=== PATIENT | female | born 1945 | race Caucasian/White ===

== ENCOUNTER → 2018-04-15 | Outpatient (CLI) | payer OTHER ==
[~2018-04-15] MED LIST: ACET325; CALCAVITDA PO; CHOL10002 PO; LOSARTAN POTAS100 MG PO; Multiple Vitam1 EAC1; OMEP20ER PO; Vitamin C1000 M1 PO
[2018-04-15 11:46] LABS: Source, Urine Clean Catch
[2018-04-15 14:23] LABS: Appearance, Urine Clear (Clear); Bilirubin, Urine Neg (Neg); Blood, Urine 3+ (Neg); Color, Urine Yellow (P-Yellow); Glucose Qualitative, Urine Neg (Neg); Ketones, Urine 1+ (Neg); Leukocyte Esterase, Urine 1+ (Neg); Nitrite, Urine Neg (Neg); Protein, Urine 2+ (Neg); Urobilinogen, Urine NORM (Normal)
[2018-04-15 14:50] LABS: Bacteria Few /hpf; Squamous Epithelial Cells Rare /hpf (Few); White Blood Cells, Urine 0-2 /hpf (0-5)
== END | disposition home or self-care (01) ==
LOC: LAB SHORT 11:45 → LAB 11:45
PROVIDERS: Internal Medicine
DX: N39.0 Urinary tract infection, site not specified (principal)
CPT/HCPCS: 81001; 87077; 87086; 87186

== ENCOUNTER → 2018-08-03 | Outpatient (CLI) | payer OTHER ==
[2018-08-03 11:25] LABS: Bacteria Not Seen /hpf; Red Blood Cells, Urine Not Seen /hpf (0-2); Squamous Epithelial Cells Mod /hpf (Few); White Blood Cells, Urine Not Seen /hpf (0-5)
== END | disposition home or self-care (01) ==
LOC: LAB EV 11:11 → LAB SHORT 11:11
PROVIDERS: Physician Assistant
DX: R31.9 Hematuria, unspecified (principal)
CPT/HCPCS: 81015; 87086

== ENCOUNTER 2021-08-07 10:11 | Emergency (ER) | payer OTHER ==
[~2021-08-07] VITALS: Ht 154.9 cm; Wt 45.8 kg
[2021-08-07 10:58] LABS: Hematocrit 35.3 % (33.0-51.0); Hemoglobin 11.2 g/dL (11.5-16.0); Mean Corpuscular HGB 29.9 pg (26.0-34.0); Mean Corpuscular HGB Conc 31.7 g/dL (31.5-36.5); Mean Corpuscular Volume 94 fL (80-100); Mean Platelet Volume 11.8 fL (9.1-12.4); Platelet Count 167 K/mm3 (150-400); RDW Coefficient Variation 12.6 % (11.7-14.2); Red Blood Cell Count 3.75 M/mm3 (3.80-5.20)
[2021-08-07 11:00] LABS: White Blood Cell Count 18.11 K/mm3 (4.00-11.30)
[2021-08-07 11:23] LABS: Alanine Aminotransfer (ALT/SGP 18 U/L (12-78); Albumin, Blood 3.7 g/dL (3.4-5.0); Albumin/Globulin Ratio 0.7 (0.8-1.8); Alk Phos 61 U/L (50-136); Anion Gap 7 mmol/L (6-16); Aspartate Aminotrans (AST/SGOT 14 U/L (12-37); BAND PERCENT MAN 2 % (0-8); BASOPHILS PERCENT MAN 0 % (0-2); Bilirubin, Total 0.3 mg/dL (0.1-1.0); Blood Urea Nitrogen 39 mg/dL (8-24); Bun/Creatinine Ratio 47.6 (12.0-20.0); CO2, Blood 21 mmol/L (21-32); Calcium, Blood 9.8 mg/dL (8.5-10.1); Chloride, Blood 112 mmol/L (98-108); Creatinine, Blood 0.82 mg/dL (0.40-1.00); EOSINOPHILS ABSOLUTE MAN 0.18 K/mm3 (0.00-0.68); EOSINOPHILS PERCENT MAN 1 % (0-6); Globulin, Blood 5.3 g/dL (2.2-4.0); Glomerular Filtration Rate >60 (60-); Glucose, Blood 97 mg/dL (70-99); LYMPHOCYTES ABSOLUTE MAN 1.44 K/mm3 (0.84-5.20); LYMPHOCYTES PERCENT MAN 8 % (21-46); METAMYELOCYTE ABSOLUTE MAN 0.18 K/mm3 (0.00-0.00); METAMYELOCYTE PERCENT MAN 1 % (0-0); MONOCYTES ABSOLUTE MAN 4.34 K/mm3 (0.16-1.47); MONOCYTES PERCENT MAN 24 % (4-13); MYELOCYTE ABSOLUTE MAN 0.36 K/mm3 (0.00-0.00); MYELOCYTE PERCENT MAN 2 % (0-0); NEUTROPHILS ABSOLUTE MAN 11.59 K/mm3 (1.96-9.15); Potassium, Blood 5.1 mmol/L (3.5-5.5); SEG NEUTROPHILS PERCENT MAN 62 % (41-73); Sodium, Blood 140 mmol/L (136-145); TOTAL CELLS COUNTED 100; Troponin I <0.015 ng/mL (0.000-0.040)
[2021-08-07] MEDS ORDERED: HYDR1TAB94 PO (15:51)
== END 2021-08-07 16:15 | disposition home or self-care (01) ==
LOC: ER 10:11
PROVIDERS: Physician Assistant
DX: S22.31XA Fracture of one rib, right side, initial encounter for closed fracture (principal); I10 Essential (primary) hypertension; Z87.891 Personal history of nicotine dependence; X58.XXXA Exposure to other specified factors, initial encounter
CPT/HCPCS: 36415; 71046; 71260; 80053; 83690; 83880; 84484; 85025; 93005; 93010; 99284-25; Q9967

== ENCOUNTER → 2021-08-30 | Outpatient (CLI) | payer OTHER ==
[~2021-08-30] MED LIST changes: +HYDR1TAB94 PO; +MAGCIT300 PO
== END | disposition home or self-care (01) ==
LOC: LAB 13:50 → LAB SHORT 13:50
DX: N39.0 Urinary tract infection, site not specified (principal)
CPT/HCPCS: 87077; 87086; 87186

== ENCOUNTER 2021-09-11 13:57 | Observation (INO) | payer OTHER ==
[~2021-09-11] VITALS: Ht 157.5 cm; Wt 45.8 kg
[~2021-09-11 13:57] MED LIST changes: -ACET325; +ACET325 PO; -CALCAVITDA PO; +CALCIUM 500-VI1 EAC6 PO; -CHOL10002 PO; -Multiple Vitam1 EAC1; +Multiple Vitam1 EAC1 PO; +VITAMIN D325 MC3 PO; +Vitamin C100 M1 PO; -Vitamin C1000 M1 PO
[2021-09-11 14:41] LABS: BASOPHILS ABSOLUTE AUTO 0.09 K/mm3 (0.00-0.23); BASOPHILS PERCENT AUTO 0 % (0-2); EOSINOPHILS ABSOLUTE AUTO 0.01 K/mm3 (0.00-0.68); EOSINOPHILS PERCENT AUTO 0 % (0-6); Hematocrit 36.1 % (33.0-51.0); IMMATURE GRAN ABSOLUTE AUTO 0.82 K/mm3 (0.00-0.10); IMMATURE GRAN PERCENT AUTO 3 % (0-1); LYMPHOCYTES ABSOLUTE AUTO 2.14 K/mm3 (0.84-5.20); LYMPHOCYTES PERCENT AUTO 7 % (21-46); MONOCYTES PERCENT AUTO 36 % (4-13); Mean Corpuscular HGB 28.8 pg (26.0-34.0); Mean Corpuscular HGB Conc 30.5 g/dL (31.5-36.5); Mean Corpuscular Volume 95 fL (80-100); NEUTROPHILS PERCENT AUTO 55 % (41-73); Platelet Count 192 K/mm3 (150-400); RDW Coefficient Variation 12.3 % (11.7-14.2); RDW Standard Deviation 42.4 fL (35.1-46.3); Red Blood Cell Count 3.82 M/mm3 (3.80-5.20); White Blood Cell Count 31.56 K/mm3 (4.00-11.30)
[2021-09-11 15:00] LABS: Alanine Aminotransfer (ALT/SGP 18 U/L (12-78); Albumin, Blood 3.3 g/dL (3.4-5.0); Albumin/Globulin Ratio 0.7 (0.8-1.8); Alk Phos 79 U/L (50-136); Anion Gap 2 mmol/L (6-16); Aspartate Aminotrans (AST/SGOT 14 U/L (12-37); Bilirubin, Total 0.4 mg/dL (0.1-1.0); Blood Urea Nitrogen 24 mg/dL (8-24); Bun/Creatinine Ratio 30.6 (12.0-20.0); CO2, Blood 26 mmol/L (21-32); Calcium, Blood 9.3 mg/dL (8.5-10.1); Chloride, Blood 111 mmol/L (98-108); Creatinine, Blood 0.78 mg/dL (0.40-1.00); Globulin, Blood 4.8 g/dL (2.2-4.0); Glomerular Filtration Rate >60 (60-); Glucose, Blood 171 mg/dL (70-99); Potassium, Blood 4.1 mmol/L (3.5-5.5); Sodium, Blood 139 mmol/L (136-145); Total Protein, Blood 8.1 g/dL (6.4-8.2)
[2021-09-11] MEDS ORDERED: IRBESARTAN150 M3 PO (16:13)
[2021-09-11] MEDS ORDERED: RALOXIFENE HCL PO (16:14)
[2021-09-11 16:50] LABS: Source, Urine Clean Catch
[2021-09-11 17:45] LABS: Appearance, Urine Hazy (Clear); Bilirubin, Urine Neg (Neg); Blood, Urine 4+ (Neg); Color, Urine Yellow (P-Yellow); Glucose Qualitative, Urine Neg (Neg); Ketones, Urine Neg (Neg); Leukocyte Esterase, Urine 1+ (Neg); Nitrite, Urine Neg (Neg); Protein, Urine 2+ (Neg); Specific Gravity, Urine 1.025 (1.003-1.022); Urobilinogen, Urine NORM (Normal)
[2021-09-11 18:16] LABS: Bacteria Mod /hpf; Hyaline Casts 0-2 /lpf (0-2); Mucus Light (0-Heavy); Red Blood Cells, Urine 0-2 /hpf (0-2); Squamous Epithelial Cells Few /hpf (Few)
[2021-09-11 23:27] LABS: Influenza A, PCR NEGATIVE (NEGATIVE); Influenza B, PCR NEGATIVE (NEGATIVE); Resp Syncytial Virus, PCR NEGATIVE (NEGATIVE); SARS-Cov-2 (COVID-19) PCR, MMC NEGATIVE (NEGATIVE)
[2021-09-12 04:49] LABS: BASOPHILS ABSOLUTE AUTO 0.09 K/mm3 (0.00-0.23); BASOPHILS PERCENT AUTO 0 % (0-2); EOSINOPHILS ABSOLUTE AUTO 0.02 K/mm3 (0.00-0.68); EOSINOPHILS PERCENT AUTO 0 % (0-6); Hematocrit 34.9 % (33.0-51.0); Hemoglobin 10.5 g/dL (11.5-16.0); IMMATURE GRAN ABSOLUTE AUTO 0.54 K/mm3 (0.00-0.10); IMMATURE GRAN PERCENT AUTO 2 % (0-1); LYMPHOCYTES ABSOLUTE AUTO 1.98 K/mm3 (0.84-5.20); LYMPHOCYTES PERCENT AUTO 7 % (21-46); MONOCYTES ABSOLUTE AUTO 14.71 K/mm3 (0.16-1.47); MONOCYTES PERCENT AUTO 49 % (4-13); Mean Corpuscular HGB 28.2 pg (26.0-34.0); Mean Corpuscular HGB Conc 30.1 g/dL (31.5-36.5); Mean Corpuscular Volume 94 fL (80-100); Mean Platelet Volume 12.1 fL (9.1-12.4); NEUTROPHILS ABSOLUTE AUTO 12.93 K/mm3 (1.96-9.15); NEUTROPHILS PERCENT AUTO 43 % (41-73); Platelet Count 163 K/mm3 (150-400); RDW Coefficient Variation 12.1 % (11.7-14.2); RDW Standard Deviation 41.6 fL (35.1-46.3); Red Blood Cell Count 3.73 M/mm3 (3.80-5.20); White Blood Cell Count 30.27 K/mm3 (4.00-11.30)
[2021-09-12 05:02] LABS: Alanine Aminotransfer (ALT/SGP 17 U/L (12-78); Albumin, Blood 2.9 g/dL (3.4-5.0); Albumin/Globulin Ratio 0.6 (0.8-1.8); Alk Phos 72 U/L (50-136); Anion Gap 6 mmol/L (6-16); Aspartate Aminotrans (AST/SGOT 12 U/L (12-37); Bilirubin, Total 0.4 mg/dL (0.1-1.0); Blood Urea Nitrogen 19 mg/dL (8-24); Bun/Creatinine Ratio 23.8 (12.0-20.0); CO2, Blood 26 mmol/L (21-32); Calcium, Blood 9.2 mg/dL (8.5-10.1); Chloride, Blood 108 mmol/L (98-108); Globulin, Blood 4.5 g/dL (2.2-4.0); Glomerular Filtration Rate >60 (60-); Glucose, Blood 84 mg/dL (70-99); Potassium, Blood 3.8 mmol/L (3.5-5.5); Sodium, Blood 140 mmol/L (136-145); Total Protein, Blood 7.4 g/dL (6.4-8.2)
--- NOTE | 2021-09-12 06:04 | NUR ---
SHIFT SUMMARY PT A/OX4,NUIQSUT BOTH EARS BUT DID BRING HEARING AIDES WITH HER.HAD GOOD EFFECT FROM NORCO IN ER AND ONLY REPORTS PAIN WITH MOVEMENT.BP APPEARS TO BE ELEVATED WITH INCREASED PAIN AND AT REST BP IMPROVED.
--- NOTE | 2021-09-12 06:08 | NUR ---
LATE ENTRY 2330 PT RECIEVED FROM ER VIA STRETCHER, SLIDE TRANFER TO BED WITH ASSIST OF THREE. SEVERE PAIN WITH MOVEMENT AND DENIES PAIN AT REST.Adkins CATHETER PATENT AND DRAINING WITH MILI URINE AND IT WAS INSERTED IN ER. PT AND DAUGHTER ORIENTED TO ROOM AND CALL LIGHT AND BOTH VERBALIZED UNDERSTANDING. BED ALARM ON FOR SAFETY.BP ELEVATED WITH PAIN FROM TRANSFER. FAIR EFFECT OBSERVED FROM BP MEDS GIVEN IN ER. SEE SEP.
--- NOTE | 2021-09-12 17:46 | NUR ---
SHIFT SUMMARY PT A&O X4 AND IN PLEASENT MOOD T/O SHIFT. PT MEDICATED PER EMAR FOR PAIN, ALSO REPOSITIONED FOR BREAKTHROUGH PAIN. FAMILY @ BEDSIDE T/O SHIFT. PT HESITANT W/ MOVEMENT DUE TO PAIN IN L LOWER BACK. HPTN MEDICATED PER EMAR. CALL LIGHT W/IN REACH. WORKED W/ PT THIS SHIFT.
--- NOTE | 2021-09-13 05:15 | NUR ---
SHIFT SUMMARY PT A/O AND STATES THAT BACK PAIN IS GETTING BETTER AND ONLY ONE DOSE OF NORCO WAS GIVEN THIS SHIFT AND PT STATES THAT BACK PAIN IS A 3/10 THIS AM AND DENIES ANY NEED FOR PAIN MEDS. REHMAN CATHETER PATENT AND DRAINING CLEAR YELLOW URINE AND FOLETY CARE WAS DONE.INCONTINENT OF ONE LIQUID BM AND TLOERATED BRIEF CHANGE.NO ACUTE DISTRESS NOTED.
--- NOTE | 2021-09-13 19:27 | NUR ---
SHIFT SUMMARY PT A&O X4 AND IN PLEASENT MOOD T/O SHIFT. WORKED W/ PT TODAY, REPORTED PT WALKED TO RESTROOM AND BACK TO BED, RECOMMENENDED FOR BSC FOR ALL RESTROOM NEEDS. PT MEDICATED PER EMAR FOR PAIN. DAUGHTERS @ BEDSIDE DURING VISITING HOURS. REHMAN DRAINING TO GRAVITY. VSS. CALL LIGHT W/IN REACH.
--- NOTE | 2021-09-14 07:28 | NUR ---
SHIFT SUMMARY: PATIENT IS REPORTING ABILITY TO CHANGE POSITION HAS IMPROVED, MUCH LESS PAINFULL THIS MORNING. PRN SOMA AND SCHEDULED TORADOL PROVIDED GOOD PAIN CONTROL. PATIENT DECLINNED SENNA AT HS DUE TO MULIPLE BM'S ON DAY SHIFT. PATIENT WAS INC. OF LOOSE BMX3 DURING THE NIGHT. IT WAS PASSED ON IN REPORT TO HOLD BOWEL CARE MEDICATIONS.
[2021-09-14] MEDS ORDERED: NABU500 PO (13:48)
[2021-09-14] MEDS ORDERED: PAIN RELIEF1 EACH TOP (13:48)
--- NOTE | 2021-09-14 16:05 | NUR ---
FAMILY DISCHARGE CONCERNS- DAUGHTER REQUESTED TO TALK TO COMPLIANCE AND CONTROL ANALYST REGARDING DISCHARGE CONCERNS. PER DAUGHTER PT LIVES ALONE AND HAS HAD HER SON HELPING BUT PER DAUGHTER HE IS AN ALCOHOLIC AND SHE IS CONCERNED WITH HIM CARING FOR HER, HER OTHER DAUGHTER IS SICK AND UNABLE TO ASSIST AND THIS DAUGHTER UNABLE TO STAY WITH MOTHER. SHE IS REQUESTING PT BE PLACED SOMEWHERE FOR A COUPLE DAYS AND THEY ARE WILLING TO PAY OUT OF POCKET TO DO SO. SHE REPORTS HER MOTHER IS WEAK AND HAVING MULTIPLE LOOSE STOOLS. SHE REPORTS SHE SPOKE WITH SOMEONE AT [employer] WHO REPORTS WE WOULD NEED TO SEND OVER DOCUMENTATION. I CALLED AND SPOKE WITH NISHA AT [employer] AND RECORDS FAXED FOR POSSIBLE PRIVATE PAY WITHOUT ANY RESPONSE. AFTER READING THROUGH PT CHART PT HAS NOT BEEN GETTING OUT OF BED AND HAS BEEN USING A BEDPAN. SPOKE WITH NURSE WHO REPORTS THIS IS DUE TO LOOSE STOOLS AND INCONTINENCE. DR MARTIN NOTIFIED OF DAUGHTER CONCERNS, AGREED TO HOLD DICHARGE TODAY AND CARE MANAGEMENT CAN ASSIST TOMORROW. NURSE REPORTS PT WILL BE ENCOURAGED TO GET OUT OF BED AND ONE TIME DOSE OF IMODIUM WILL BE GIVEN. DAUGHTER UPDATED ON PLAN.
--- NOTE | 2021-09-14 16:58 | NUR ---
SHIFT SUMMARY PT A&O X4 AND IN PLEASENT MOOD T/O SHIFT. PT DAUGHTER @ BEDSIDE DURING VISITING HOURS. REHMAN D/SHANTELLE THIS SHIFT, 1 SMALL VOID NOTED. PT SUFFERING FROM LIQUID STOOL- IMODIUM ADMIN, NOTIFIED-PLANNED D/C POSTPONED. PT VERBALIZED ANX ABOUT BEING HOME ALONE WITH TOILETING NEEDS. PLAN TO D/C [place]. VSS. CALL LIGHT W/IN REACH. PAIN MEDICATED W/ TRAMADOL PER EMAR. PT EDUCATED ON NEED TO BE UP TO CHAIR FOR MEALS AND UP TO BSC FOR RESTROOM NEEDS.
--- NOTE | 2021-09-15 04:09 | NUR ---
SHIFT SUMMARY: PATIENT WAS INC. OF LOOSE STOOL X1 THIS SHIFT, BOWEL CARE MEDS ARE HELD. BACK PAIN IS MUCH IMPROVED, NORCO WAS GIVEN X1 WITH GOOD EFFECT. PATIENT IS INC. WHEN CHECKED AND DENIES NEED TO USE THE BATHROOM WHEN GUI CARE IS GIVEN.
--- NOTE | 2021-09-15 18:04 | NUR ---
DISCHARGE PATIENT TRANSPORTED VIA WHEELCHAIR TO PRIVATE VEHICLE. DISCHARGE INSTRUCTIONS EXPLAINED TO PATIENT. PATIENT STATED UNDERSTANDING. PACKET SENT WITH PATIENT. IV REMOVED WITHOUT DIFFICULTY. BELONGINGS SENT WITH PATIENT. MEDICATIONS FAXED TO PREFERRED PHARMACY. PATIENT TO SCHEDULE FOLLOW UP APPOINTMENT.
[2021-09-16 19:07] LABS: A/G RATIO 0.9 (0.7-1.7); ALPHA-1-GLOBULIN 0.3 g/dL (0.0-0.4); ALPHA-2-GLOBULIN 0.6 g/dL (0.4-1.0); BETA GLOBULIN 0.6 g/dL (0.7-1.3); GLOBULIN, TOTAL 3.4 g/dL (2.2-3.9); IMMUNOGLOBULIN A, QN, SERUM 206 mg/dL (64-422); IMMUNOGLOBULIN G, QN, SERUM 2095 mg/dL (586-1602); IMMUNOGLOBULIN M, QN, SERUM 88 mg/dL (26-217); M-SPIKE 1.4 g/dL (Not Observed); PROTEIN, TOTAL, SERUM 6.4 g/dL (6.0-8.5)
== END 2021-09-15 17:52 | disposition home health service (06) ==
LOC: ER 13:57 → MEDS 13:58 → ENPENDDIS 09-14 17:03 → MEDS 09-15 17:52
PROVIDERS: Family Medicine; Physician Assistant; ADMIT Internal Medicine
DX: M54.50 Low back pain, unspecified (principal); G89.29 Other chronic pain; R54 Age-related physical debility; D72.829 Elevated white blood cell count, unspecified; M81.0 Age-related osteoporosis without current pathological fracture; I10 Essential (primary) hypertension; K44.9 Diaphragmatic hernia without obstruction or gangrene; M43.17 Spondylolisthesis, lumbosacral region; M47.818 Spondylosis without myelopathy or radiculopathy, sacral and sacrococcygeal region; M51.37 Other intervertebral disc degeneration, lumbosacral region; E46 Unspecified protein-calorie malnutrition; M41.9 Scoliosis, unspecified; Z87.891 Personal history of nicotine dependence; Z20.822 Contact with and (suspected) exposure to COVID-19
CPT/HCPCS: 0241U; 36415; 51702; 71046; 72100; 80053; 81001; 83605; 85025; 87086; 93971; 97110; 97112; 97162; 97165; 97530; 99285-25; A9270; J1650; J1885

== ENCOUNTER → 2021-09-21 | Outpatient (CLI) | payer OTHER ==
[~2021-09-21] MED LIST changes: +IRBESARTAN150 M3 PO; +NABU500 PO; +PAIN RELIEF1 EACH TOP; +RALOXIFENE HCL PO
[2021-09-24 10:46] LABS: Stool Occult Blood Guaiac 1 Neg (Neg)
== END | disposition home or self-care (01) ==
LOC: LAB SHORT 11:35
PROVIDERS: Internal Medicine
DX: D64.9 Anemia, unspecified (principal)
CPT/HCPCS: 82270

== ENCOUNTER 2021-11-07 12:46 | Emergency (ER) | payer OTHER ==
[~2021-11-07] VITALS: Ht 154.9 cm; Wt 39.5 kg
== END 2021-11-07 14:31 | disposition home or self-care (01) ==
LOC: ER 12:46
DX: M71.21 Synovial cyst of popliteal space [Baker], right knee (principal); I10 Essential (primary) hypertension; Z79.899 Other long term (current) drug therapy; Z87.891 Personal history of nicotine dependence
CPT/HCPCS: 93971; 99283-25

== ENCOUNTER 2022-04-17 10:02 | Emergency (ER) | payer OTHER ==
[~2022-04-17] VITALS: Ht 154.9 cm; Wt 45.8 kg
[2022-04-17 11:06] LABS: BASOPHILS ABSOLUTE AUTO 0.07 K/mm3 (0.00-0.23); BASOPHILS PERCENT AUTO 0 % (0-2); EOSINOPHILS ABSOLUTE AUTO 0.19 K/mm3 (0.00-0.68); EOSINOPHILS PERCENT AUTO 1 % (0-6); Hematocrit 32.6 % (33.0-51.0); IMMATURE GRAN ABSOLUTE AUTO 0.39 K/mm3 (0.00-0.10); IMMATURE GRAN PERCENT AUTO 2 % (0-1); LYMPHOCYTES ABSOLUTE AUTO 1.92 K/mm3 (0.84-5.20); LYMPHOCYTES PERCENT AUTO 9 % (21-46); MONOCYTES ABSOLUTE AUTO 8.64 K/mm3 (0.16-1.47); MONOCYTES PERCENT AUTO 39 % (4-13); Mean Corpuscular HGB 27.6 pg (26.0-34.0); Mean Corpuscular HGB Conc 30.7 g/dL (31.5-36.5); Mean Corpuscular Volume 90 fL (80-100); Mean Platelet Volume 12.4 fL (9.1-12.4); NEUTROPHILS ABSOLUTE AUTO 10.75 K/mm3 (1.96-9.15); NEUTROPHILS PERCENT AUTO 49 % (41-73); Platelet Count 186 K/mm3 (150-400); RDW Coefficient Variation 13.2 % (11.7-14.2); RDW Standard Deviation 44.1 fL (35.1-46.3); Red Blood Cell Count 3.62 M/mm3 (3.80-5.20); White Blood Cell Count 21.96 K/mm3 (4.00-11.30)
[2022-04-17 11:15] LABS: Albumin, Blood 3.4 g/dL (3.4-5.0); Albumin/Globulin Ratio 0.7 (0.8-1.8); Bilirubin, Total 0.3 mg/dL (0.1-1.0); Bun/Creatinine Ratio 29.4 (12.0-20.0); Creatinine, Blood 0.85 mg/dL (0.40-1.00); Globulin, Blood 4.6 g/dL (2.2-4.0); Potassium, Blood 3.4 mmol/L (3.5-5.5)
[2022-04-17 11:33] LABS: BASOPHILS PERCENT MAN 0 % (0-2); EOSINOPHILS ABSOLUTE MAN 0.21 K/mm3 (0.00-0.68); EOSINOPHILS PERCENT MAN 1 % (0-6); LYMPHOCYTES ABSOLUTE MAN 2.19 K/mm3 (0.84-5.20); LYMPHOCYTES PERCENT MAN 10 % (21-46); MONOCYTES ABSOLUTE MAN 7.24 K/mm3 (0.16-1.47); MONOCYTES PERCENT MAN 33 % (4-13); NEUTROPHILS ABSOLUTE MAN 12.29 K/mm3 (1.96-9.15); SEG NEUTROPHILS PERCENT MAN 56 % (41-73); TOTAL CELLS COUNTED 100
[2022-04-17] MEDS ORDERED: POLY500 PO (11:58)
[2022-04-17] MEDS ORDERED: SENN187 PO (11:58)
[2022-04-17] MEDS ORDERED: OMEP20ER PO (11:58)
[2022-04-17] MEDS ORDERED: PROLIA60 MG/1 ML SC (11:59)
== END 2022-04-17 14:02 | disposition home or self-care (01) ==
LOC: ER 10:02
PROVIDERS: Physician Assistant
DX: R20.2 Paresthesia of skin (principal); Z79.899 Other long term (current) drug therapy; Z87.891 Personal history of nicotine dependence
CPT/HCPCS: 36415; 70450; 80053; 83735; 85025

== ENCOUNTER 2022-04-19 15:57 | Inpatient (IN) | payer OTHER ==
[~2022-04-19] VITALS: Ht 152.4 cm; Wt 44.1 kg
[~2022-04-19 15:57] MED LIST changes: -ACET500 PO; -ENSURE PLUS HI237 ML PO; -ENTRESTO 24 MG1 EACH PO; -FUROSEMIDE20 MG PO; -IRBE150 PO; -LACT10SY PO; -METO25ER PO; -MIRALAX17 GM PO; -POTCHL20ER PO; -PROLIA60 MG/1 ML
[2022-04-19] MEDS ORDERED: FUROSEMIDE20 MG PO (16:55)
[2022-04-19] MEDS ORDERED: POTCHL20ER PO (16:56)
[2022-04-19] MEDS ORDERED: ACET500 PO (16:57)
[2022-04-19] MEDS ORDERED: SENN187 PO (16:58)
[2022-04-19] MEDS ORDERED: POLY500 PO (16:59)
[2022-04-19] MEDS ORDERED: IRBE150 PO (17:00)
[2022-04-19] MEDS ORDERED: VITAMIN D325 MC3 PO (17:01)
[2022-04-19] MEDS ORDERED: OMEP20ER PO (17:03)
[2022-04-19] MEDS ORDERED: MIRALAX17 GM PO (17:03)
[2022-04-19] MEDS ORDERED: ENSURE PLUS HI237 ML PO (17:03)
[2022-04-19] MEDS ORDERED: LACT10SY PO ×2 (17:05→17:06)
[2022-04-19] MEDS ORDERED: PROLIA60 MG/1 ML (17:05)
[2022-04-20 05:38] LABS: Bun/Creatinine Ratio 28.4 (12.0-20.0); Calcium, Blood 8.7 mg/dL (8.5-10.1); Creatinine, Blood 0.92 mg/dL (0.40-1.00); Potassium, Blood 4.3 mmol/L (3.5-5.5)
--- NOTE | 2022-04-20 06:13 | NUR ---
NOC SHIFT SUMMARY PT ADMITTED FROM URGENT CARE DUE TO SWELLING NOTED IN BLE (2+ PITTING). LASIX STARTED IN ED WITH EXCELLENT RESPONSE. PT RECEIVED A TOTAL 80 mEq OF PO K, FOR A K OF 3.4; HS DOSE HELD AFTER VERIFYING WITH PHARMACY (MD LIKELY UNAWARE OF THE 40 mEq THAT PT RECFEIVED WHILE AT URGENT CARE; PT THEN RECEIVED AN ADDITIONAL 40 mEq WHILE IN ED). PT VERY PETITE AND FRAIL. USES WHEELCHAIR AT BASELINE D/T SEVERE WEAKNESS; CURRENLT ON BEDREST. PUREWICK INITIATED TO PREVENT SKIN BREAKDOWN. TELE MONITORING SHOWING ST OVERNIGHT. PIV LOCATED ON RIGHT WRIST; HOWEVER, PT HAD RIGHT MASTECTOMY, WHICH SHOULD RENDER RIGHT ARM LIMB RESTRICTION. PT WAS HESITANT TO ALLOW NEW PIV PLACEMENT ON LEFT SIDE D/T CHEMOTHERAPY "DESTROYING" HER VEINS.
--- NOTE | 2022-04-20 17:44 | NUR ---
SHIFT SUMMARY: PATIENT A&OX4. SLIGHTLY JACK[place]. PLEASANT AND COOPERATIVE WITH CARE. ON TELE, NSR AT 89 BPM PER MALT HOUSE LOADER TASHA. DENIES CP/CHEST DISCOMFORT. LUNGS CLEAR T/O. O2 2L VIA NC WITH SPO2 RANGES FROM 97-100% T/O SHIFT. REPORTS SOB WITH ACTIVITIES THIS AM. IT IMPROVED WITH REPOSITIONING AND SITTING UP ON THE EOB T/O THE DAY. PATIENT HAS BEEN INCONTINENT AND WEAR ATTENDS. RECIEVED PRN TYLENOL PER EMAR FOR BACK PAIN WITH GOOD RELIEF PER PATIENT. VITAL SIGNS REVIEWED. NO ACUTE CHANGES THIS SHIFT. BED IN LOWEST POSITION, LOCKED AND CALL LIGHT WITHIN REACH.
--- NOTE | 2022-04-21 04:38 | NUR ---
SUMMARY: PT A/OX4, CALLS APPROPRIATELY TO SPECIFY NEEDS AND IS PLEASANT AND COOPERATIVE W/CARE. SHE'S SBA TO BSC TO VOID AND HAD URGENCY R/T DIURESIS W/LASIX AND ATTENDS CHANGED PRN. BLE EDEMA PERSISTS BUT IS IMPROVING. BRUISES ARE SCATTERED TO EXT'S FROM RECENT FALLS AND LARGE BRUISE OBSERVED TO L.THIGH WHERE SHE PREDOMINANTLY REPORTS PAIN BEING PRESENT. OXYCONTIN AND PRN TYLENOL W/CODEINE RECIEVED FOR TOLERABLE RELIEF. NO ACUTE CHANGES, VSS/AFEBRILE ON 2L O2 VIA NC W/SPO2 WNL. WCTM AND REPORT TO DAY RN.
--- NOTE | 2022-04-21 05:16 | NUR ---
SUMMARY: PT A/OX4, CALLS APPROPRIATELY TO SPECIFY NEEDS AND IS PLEASANT AND COOPERATIVE W/CARE. SHE'S TYPICALLY AMBULATORY W/FWW BUT HAS BECOME DECONDITIONED R/T SOB W/EXERTION AND W/C USE RECENTLY. TURN SCHEDULE WAS FOR SBD PREVENTION AND PT NOTED TO HAVE X2 SM.SCABS TO BUTTOCKS. ATTENDS WERE CHANGED PRN FOR URINARY INCONTINENCE AND BARRIER CREAM APPLIED. SHE REMAINS ON 2L O2 VIA NC TO MAINTAIN SPO2 WNL BUT SOB W/ACTIVITY IS IMPROVING. BLE EDEMA IS GOING DOWN W/DIURESIS. SHE WAS ASSISTED TO CHAIR THIS MORNING D/T TROUBLE GETTING COMFORTABLE ON AIR BED. TYLENOL WAS RECIEVED AND KPAD IS IN PLACE AND PT REPORTS FEELING MUCH BETTER. PLAN TO OBTAIN RECLINER TO SLEEP IN FOR FUTURE. NO ACUTE CHANGES, VSS/AFEBRILE. WCTM AND REPORT TO DAY RN.
[2022-04-21 15:44] LABS: SARS-Cov-2 (COVID-19) PCR, MMC NEGATIVE (NEGATIVE)
--- NOTE | 2022-04-21 18:12 | NUR ---
SHIFT SUMMARY: PATIENT A&OX4. PLEASANT AND COOPERATIVE WITH CARE. DENIES CP/CHEST DISCOMFORT. RA WITH SPO2 RANGES 92-94% T/O SHIFT. LUNGS CLEAR. PATIENT REPORTS SOB IS IMPROVING NOT EASILY WEANDED WITH ACTIVITIES. PATIENT HAS BEEN SITTING UP IN THE RECLINER CHAIR T/O THE DAY AND TOLERATED WELL. PATIENT USES BSC AND WEAR ATTENDS FOR INCONTINENCE VOID. RECIEVED ALL SCHEDULED MEDS THIS SHIFT. PATIENT IS GOING TO BE NPO AFTER MN FOR ANGIOGRAM 04/22/22. VITAL SIGNS REVIEWED. FAMILY AT BEDSIDE T/O THE DAY VISITING. NO ACUTE CHANGES THIS SHIFT. CALL LIGHT IN REACH.
--- NOTE | 2022-04-22 04:50 | NUR ---
SUMMARY: PT A/OX4, CALLS APPROPRIATELY TO SPECIFY NEEDS AND IS PLEASANT AND COOPERATIVE W/CARE. SHE'S UP W/1PA TO BSC/CHAIR AND SPENT BEGINNING OF SHIFT IN RECLINER BEFORE TRANSFERING TO BED TO SLEEP. PT REQUESTED SLEEP AID D/T UNDERLYING ANXIETY R/T ANGIO TODAY. RX'D TRAZADONE X1 AND MED WAS RECIEVED FOR SHORT DURATION OF EFFECT. SHE REPORTED FALLING ASLEEP FOR ONLY A COUPLE HOURS BEFORE MED SEEMED TO WEAR OFF. PT SLEPT OFF/ON T/O NOCTE SINCE AND DENIED DISCOMFORT, CP, S/S CARDIAC DISTRESS OR NEED FOR ADDITIONAL SLEEP/ ANXIETY MEDS. TYLENOL WAS PROVIDED X1 FOR TOLERABLE RELIEF OF BACK AND NECK PAIN R/T MULTI SPINAL FX'S. TURN SCHEDULE MAINTAINED AND ATTENDS CHANGED FOR OCC INCONTINENCE WHILE ASLEEP. MEPILEX TO COCCYX IS C/D/I. SHE'S BEEN NPO SINCE MN FOR ANGIO TODAY AND WAS NSR W/BBB AT 80'S-100'S BPM. VSS/AFEBRILE AND NO ACUTE CHANGES. WCTM AND REPORT TO DAY RN.
[2022-04-22 05:09] LABS: Anion Gap 3 mmol/L (6-16); Blood Urea Nitrogen 30 mg/dL (8-24); Bun/Creatinine Ratio 35.4 (12.0-20.0); CO2, Blood 32 mmol/L (21-32); Calcium, Blood 8.4 mg/dL (8.5-10.1); Chloride, Blood 105 mmol/L (98-108); Cholesterol 74 mg/dL (50-200); Creatinine, Blood 0.85 mg/dL (0.40-1.00); Glomerular Filtration Rate 70 (60-); Glucose, Blood 92 mg/dL (70-99); HDL Cholesterol 37 mg/dL (>39); LDL/HDL RATIO 0.6; Low Density Lipoprotein Chol 21 mg/dL (0-110); Magnesium, Blood 2.3 mg/dL (1.6-2.4); Sodium, Blood 140 mmol/L (136-145); Triglycerides 80 mg/dL (30-160); Very Low Density Lipoprot Chol 16 mg/dL (6-32)
--- NOTE | 2022-04-22 08:33 | NUR ---
0720 PT CALLED FOR ANGIO- RN ASSISTED UP TO BSC SBA, VOIDED AND HAD SMALL SOFT BM. NEW ATTENDS PLACED. SBA TO WHEELCHAIR FOR TX TO METER MECHANIC. BED ASSIGNED PCU 5 POST ANGIO- CALLED REPORT 08 TO RN- BELONGINGS SENT TO PCU 5- PT ALERT AND ORIENTED, MIN SOB WITH ACTIVITY.
--- NOTE | 2022-04-22 08:53 | NUR ---
PT ARRIVED FROM LIVESTOCK FEEDER POST ANGIO WITH NO INTERVENTION. PT WITH AN ATTEMPTED ANGIO SITE TO RT RADIAL THAT HAS A SMALL HEMATOMA WITH NO ACTIVE BLEEDING NOTED, AND TEGADERM TO SITE. SHE ALSO HAS A RT FEMORAL ACCESS SITE, CLOSURE DEVICE IN PLACE, NO ACTIVE BLEEDING, NO HEMATOMA. PT TO LAY FLAT FOR A FEW HOURS, SHE IS EDUCATED BY DR CARLIN. PT RESTING WELL IN BED DENIES CP OR SOB.
--- NOTE | 2022-04-22 13:05 | NUR ---
PT'S GROIN SITE REMAINS INTACT, CLEAN DRY, NO BLEEDING NOTED. PT ABLE TO MOVE LEG. SHE IS IMPULSIVE SHE ATTEMPTED TO GET TO BEDSIDE COMMODE WITHOUT CALLING, FAMILY CALLED, PT WAS UP TO BEDSIDE COMMODE WITH NON WEIGHT BEARING TO RT LEG, RETURNED TO BED, GROIN SITE REMAINS CLEAN/DRY, NO ACTIVE BLEEDING, NO HEMATOMA.
--- NOTE | 2022-04-22 17:28 | NUR ---
SMALL HEMATOMA TO RT RADIAL SITE REMAINS UNCHANGED, NO ACTIVE BLEEDING, DRESSING IN PLACE. RT GROIN ACCESS SITE REMAINS FREE OF D/C, NO BLEEDING, NO HEMATOMA, NO PAIN, NO SWELLING, NO HEAT TO TOUCH. PT MOVING LEGS FREELY IN BED. A/O X3, SHE CAN BE FORGETFUL, ASKS THE SAME QUESTIONS OFTEN. NS REMAINS INFUSING AT 50ML/HR PER EMAR. VSS. DENIES CP OR SOB AT THIS TIME. GOOD ROM TO ALL FOUR EXTREMETIES. REPORTS BACK PAIN BUT REPORTS THIS IS CHRONIC RELATED TO HER SCOLOSIS, PAIN RELIEVED WITH USE OF VOLTAREN GEL, LIDOCAINE PATCH, AND TYLENOL PO, AND REPOSITIONING.
[2022-04-23 04:02] LABS: Hematocrit 33.1 % (33.0-51.0); Hemoglobin 10.2 g/dL (11.5-16.0); Mean Corpuscular HGB 27.3 pg (26.0-34.0); Mean Corpuscular HGB Conc 30.8 g/dL (31.5-36.5); Mean Corpuscular Volume 89 fL (80-100); Platelet Count 169 K/mm3 (150-400); RDW Coefficient Variation 13.2 % (11.7-14.2); RDW Standard Deviation 42.8 fL (35.1-46.3); Red Blood Cell Count 3.73 M/mm3 (3.80-5.20)
[2022-04-23 04:06] LABS: White Blood Cell Count 24.71 K/mm3 (4.00-11.30)
[2022-04-23 04:17] LABS: Bun/Creatinine Ratio 32.1 (12.0-20.0); Calcium, Blood 7.9 mg/dL (8.5-10.1); Creatinine, Blood 0.87 mg/dL (0.40-1.00)
--- NOTE | 2022-04-23 05:41 | NUR ---
SHIFT SUMMARY: PATIENT A&O X4, ANGIO SITES C/D/I AND WNL, VS STABLE ON RA. PATIENT RESTED INTERMITTENTLY AND IS ANXIOUS TO GO HOME AND "KEEP GETTING BETTER." PATIENT REPORTS FEELING "MUCH BETTER" THAN WHEN SHE CAME IN. PLEASANT AND COOPERATIVE WITH CARE, SBA TO BSC, CALLS APPROPRIATELY. MEDICATED PER EMAR. BED LOW WITH CALL LIGHT IN REACH. WILL CONTINUE TO MONITOR UNTIL SHIFT CHANGE REPORT GIVEN.
[2022-04-23] MEDS ORDERED: METO25ER PO (11:38)
[2022-04-23] MEDS ORDERED: ENTRESTO 24 MG1 EACH PO (11:40)
--- NOTE | 2022-04-23 13:12 | NUR ---
DISCHARGE NOTE PT IS ALERT AND ORIENTED. DAUGHTER PRESENT AT BS FOR INSTRUCTIONS. PT AGREES AND UNDERSTANDS DISCHARGE INSTRUCTIONS. PRINTED MATERIALS GIVEN. PT DRESSED AND WC RIDE GIVEN OUT. IV REMOVED.
== END 2022-04-23 13:06 | disposition home or self-care (01) | DRG 286 ==
LOC: ER 15:57 → MEDS 18:32 → PCU 04-22 07:44
PROVIDERS: Internal Medicine Cardiovascular Disease; Nurse Practitioner Acute Care; ADMIT Family Medicine
PROC: B2111ZZ Fluoroscopy of Multiple Coronary Arteries using Low Osmolar Contrast (ICD-10-PCS; principal; 2022-04-22)
DX: I11.0 Hypertensive heart disease with heart failure (principal); J96.01 Acute respiratory failure with hypoxia; I42.8 Other cardiomyopathies; M40.209 Unspecified kyphosis, site unspecified; I35.0 Nonrheumatic aortic (valve) stenosis; K21.9 Gastro-esophageal reflux disease without esophagitis; M81.0 Age-related osteoporosis without current pathological fracture; D72.829 Elevated white blood cell count, unspecified; R54 Age-related physical debility; Z90.49 Acquired absence of other specified parts of digestive tract; Z90.710 Acquired absence of both cervix and uterus; Z85.3 Personal history of malignant neoplasm of breast; Z90.11 Acquired absence of right breast and nipple; Z98.890 Other specified postprocedural states; Z90.722 Acquired absence of ovaries, bilateral; Z87.891 Personal history of nicotine dependence
CPT/HCPCS: 36415; 80048; 80061; 83735; 84443; 84484; 85027; 93005; 93010; 93306; 93454; 94760; 96365; 96366; 99152; 99153; 99285-25; A9270; C1760; C1769; C1894; J1644; J1650; J1940; J2250; J3010; J3480; J7030; J7050; Q9967; U0004

== ENCOUNTER → 2022-04-19 | Outpatient (CLI) | payer OTHER ==
[~2022-04-19] MED LIST changes: +ACET500 PO; +ENSURE PLUS HI237 ML PO; +ENTRESTO 24 MG1 EACH PO; +FUROSEMIDE20 MG PO; +IRBE150 PO; +LACT10SY PO; +METO25ER PO; +MIRALAX17 GM PO; +POLY500 PO; +POTCHL20ER PO; +PROLIA60 MG/1 ML; +PROLIA60 MG/1 ML SC; +SENN187 PO
== END | disposition home or self-care (01) ==
LOC: LAB SHORT 13:43 → LAB 13:43
DX: R06.00 Dyspnea, unspecified (principal)
CPT/HCPCS: 83880; 84484; 85379

== ENCOUNTER 2022-05-16 15:47 | Observation (INO) | payer OTHER ==
[~2022-05-16] VITALS: Ht 152.4 cm; Wt 91.7 kg
[~2022-05-16 15:47] MED LIST changes: +ACET500 PO; +ENSURE PLUS HI237 ML PO; +ENTRESTO 24 MG1 EACH PO; +FUROSEMIDE20 MG PO; +IRBE150 PO; +LACT10SY PO; +METO25ER PO; +MIRALAX17 GM PO; +POTCHL20ER PO; +PROLIA60 MG/1 ML
[2022-05-16 16:40] LABS: Hematocrit 36.4 % (33.0-51.0); Hemoglobin 11.2 g/dL (11.5-16.0); Mean Corpuscular HGB 27.9 pg (26.0-34.0); Mean Corpuscular HGB Conc 30.8 g/dL (31.5-36.5); Mean Corpuscular Volume 91 fL (80-100); RDW Coefficient Variation 15.2 % (11.7-14.2); RDW Standard Deviation 50.3 fL (35.1-46.3); Red Blood Cell Count 4.01 M/mm3 (3.80-5.20); White Blood Cell Count 23.01 K/mm3 (4.00-11.30)
[2022-05-16 16:57] LABS: Albumin, Blood 3.4 g/dL (3.4-5.0); Albumin/Globulin Ratio 0.7 (0.8-1.8); Bilirubin, Total 0.2 mg/dL (0.1-1.0); Bun/Creatinine Ratio 39.4 (12.0-20.0); Creatinine, Blood 1.27 mg/dL (0.40-1.00); Globulin, Blood 4.7 g/dL (2.2-4.0); Magnesium, Blood 2.2 mg/dL (1.6-2.4); Potassium, Blood 4.5 mmol/L (3.5-5.5); Total Protein, Blood 8.1 g/dL (6.4-8.2)
[2022-05-16 18:25] LABS: BASOPHILS PERCENT MAN 0 % (0-2); EOSINOPHILS ABSOLUTE MAN 0.23 K/mm3 (0.00-0.68); EOSINOPHILS PERCENT MAN 1 % (0-6); LYMPHOCYTES ABSOLUTE MAN 1.15 K/mm3 (0.84-5.20); LYMPHOCYTES PERCENT MAN 5 % (21-46); MONOCYTES ABSOLUTE MAN 11.73 K/mm3 (0.16-1.47); MONOCYTES PERCENT MAN 51 % (4-13); MYELOCYTE ABSOLUTE MAN 0.69 K/mm3 (0.00-0.00); MYELOCYTE PERCENT MAN 3 % (0-0); SEG NEUTROPHILS PERCENT MAN 40 % (41-73); TOTAL CELLS COUNTED 100
[2022-05-16 18:28] LABS: Platelet Count 90 K/mm3 (150-400)
--- NOTE | 2022-05-17 03:03 | NUR ---
PATIENT IS TRANSFER FROM ED. ADMITTED FOR SOB/DYSPNEA WITH LIKELY COVID-19 DX. HX OF CHF, BREAST CANCER, HTN, CKD. ROOM AIR, SINUS RYTHYM @ 86 BPM PER TELEMETRY. PATIENT DENIES ANY ACUTE PAIN AND IS AFEBRILE AT THIS TIME. IV IN PLACE IN RIGHT WRIST. PATIENT IS ACCOMPANIED BY DAUGHTER. PATIENT IS 1 PERSON ASSIST AND IS CONTINENT. AOX4. RESPIRATORY ASSESSMENT REMARKABLE FOR DIMISHED LUNG SOUNDS IN ALL ORTIZ AND CRACKLES IN RIGHT LOWER LOBE. FULL CODE. COVID-19 SPECIMEN COLLECTED AND SENT TO LAB FOR ANALYSIS. CALL LIGHT LEFT WITHIN REACH.
[2022-05-17 03:42] LABS: Influenza A, PCR NEGATIVE (NEGATIVE); Influenza B, PCR NEGATIVE (NEGATIVE); Resp Syncytial Virus, PCR NEGATIVE (NEGATIVE)
[2022-05-17 03:47] LABS: SARS-Cov-2 (COVID-19) PCR, MMC POSITIVE (NEGATIVE)
--- NOTE | 2022-05-17 04:48 | NUR ---
RECENT ED ADMIT FOR SOB/DYSPNEA WITH SUSPECTED COVID-19. COVID-19 SPECIMEN COLLECTED AND SENT TO LAB UPON TRANSFER, RESULTS SHOW PATIENT POSITIVE FOR COVID-19. PATIENT CONDITION IS OVERALL GOOD WITH NO EXERTION ON RESPIRATIONS, NO SOB, NO DYSPNEA, AND O2 SATS >92%. AFTER ADMISSION PROCESS PATIENT HAS SLEPT THROUGH THE REST OF THE NIGHT. CALL LIGHT LEFT WITHIN REACH.
[2022-05-17 04:50] LABS: Hematocrit 36.2 % (33.0-51.0); Hemoglobin 10.6 g/dL (11.5-16.0); Mean Corpuscular HGB 26.9 pg (26.0-34.0); Mean Corpuscular HGB Conc 29.3 g/dL (31.5-36.5); Mean Corpuscular Volume 92 fL (80-100); Platelet Count 81 K/mm3 (150-400); RDW Coefficient Variation 15.1 % (11.7-14.2); RDW Standard Deviation 51.5 fL (35.1-46.3); Red Blood Cell Count 3.94 M/mm3 (3.80-5.20)
[2022-05-17 04:54] LABS: Mean Platelet Volume 15.1 fL (9.1-12.4)
[2022-05-17 05:14] LABS: Albumin/Globulin Ratio 0.7 (0.8-1.8); Bilirubin, Total 0.2 mg/dL (0.1-1.0); Calcium, Blood 7.5 mg/dL (8.5-10.1); Creatinine, Blood 1.19 mg/dL (0.40-1.00); Globulin, Blood 4.3 g/dL (2.2-4.0); Potassium, Blood 4.7 mmol/L (3.5-5.5); Total Protein, Blood 7.3 g/dL (6.4-8.2)
[2022-05-17 06:06] LABS: BAND PERCENT MAN 3 % (0-8); BASOPHILS PERCENT MAN 0 % (0-2); EOSINOPHILS ABSOLUTE MAN 0.23 K/mm3 (0.00-0.68); EOSINOPHILS PERCENT MAN 1 % (0-6); LYMPHOCYTES PERCENT MAN 14 % (21-46); NEUTROPHILS ABSOLUTE MAN 7.78 K/mm3 (1.96-9.15); SEG NEUTROPHILS PERCENT MAN 30 % (41-73); TOTAL CELLS COUNTED 100
[2022-05-17 06:08] LABS: METAMYELOCYTE ABSOLUTE MAN 0.23 K/mm3 (0.00-0.00); METAMYELOCYTE PERCENT MAN 1 % (0-0); MONOCYTES ABSOLUTE MAN 11.56 K/mm3 (0.16-1.47); MONOCYTES PERCENT MAN 49 % (4-13); MYELOCYTE ABSOLUTE MAN 0.47 K/mm3 (0.00-0.00); MYELOCYTE PERCENT MAN 2 % (0-0)
--- NOTE | 2022-05-17 11:30 | NUR ---
PLACED PHONE CALL TO DR. MCKENNA - PT HAS HAD TWO EPISODES OF WATERY, YELLOW TO GREEN DIARRHEA PER CONSTRUCTION ESTIMATOR REPORT. PRIOR TO ARRIVAL, PT HAS HAD TWO DAYS OF DIARRHEA/VOMITING WITH INCREASED GENERALIZED WEAKNESS. NO HISTORY OF C.DIFF. DR. MCKENNA WITH ORDERS FOR A STOOL SPECIMEN AND GI PANEL. RN PLACED ORDER AND NOTIFIED CONSTRUCTION ESTIMATOR.
--- NOTE | 2022-05-17 15:49 | NUR ---
CONSULT WITH PHYSICAL THERAPIST GUIDO. AFTER WORKING WITH PATIENT, GUIDO REPORTS THAT PT IS A MAX ASSIST. SHE HAD A COUGHING FIT WITH MOVEMENT, BUT WAS ABLE TO RECOVER WHEN SHE SAT BACK ON THE BED. SHE REMAINS ON ROOM AIR. AT THIS TIME, PHYSICAL THERAPY IS RECOMMENDING SNF. GUIDO WITH QUESTIONS REGARDING PT'S OCTOBER 2021 FALL, AND SUBSEQUENT IMAGING THAT SHOWED A STABLE MULTILEVEL DEG DISC DISEASE, AND MULTILEVEL VERTEBRAL BODY COMPRESSION FRACTURES. A F/U SPINAL XR SHOWED NO FURTHER ACUTE OSSEOUS CHANGES. DOES PT NEED AN ORTHO CONSULT OR SPINE PRECAUTIONS? RN TO CALL DR. MCKENNA FOR FURTHER DIRECTION.
--- NOTE | 2022-05-17 15:59 | NUR ---
PHONE CALL PLACED TO DR. MCKENNA, BALA AGREES TO SPINAL PRECAUTIONS. RN UPDATED PHYSICAL THERAPIST GUIDO SKINNER. RN UPDATED ORDERS WITH WEIGHT BEARING PRECAUTIONS AND WILL UPDATE HOT BOX SPOTTER/CARE TEAM.
--- NOTE | 2022-05-18 04:28 | NUR ---
SHIFT UNREMARKABLE. CLIENT IS AOX3-4, PLEASANT, AND COOPERATIVE WITH CARE. PAIN ASSOCIATED WITH COCCYX ULCER IS MITIGATED BY POSITIONAL CHANGES Q2 HOURS. PATIENT HAD TYLENOL ONCE FOR BREAKTHROUGH PAIN. OTHERWISE NO CHANGE IN CLIENT CONDITION. CALL LIGHT LEFT WITHIN REACH.
[2022-05-18 05:10] LABS: BASOPHILS ABSOLUTE AUTO 0.07 K/mm3 (0.00-0.23); BASOPHILS PERCENT AUTO 0 % (0-2); EOSINOPHILS ABSOLUTE AUTO 0.06 K/mm3 (0.00-0.68); EOSINOPHILS PERCENT AUTO 0 % (0-6); Hemoglobin 10.3 g/dL (11.5-16.0); IMMATURE GRAN ABSOLUTE AUTO 0.75 K/mm3 (0.00-0.10); IMMATURE GRAN PERCENT AUTO 5 % (0-1); LYMPHOCYTES ABSOLUTE AUTO 1.93 K/mm3 (0.84-5.20); LYMPHOCYTES PERCENT AUTO 12 % (21-46); MONOCYTES ABSOLUTE AUTO 9.03 K/mm3 (0.16-1.47); MONOCYTES PERCENT AUTO 54 % (4-13); Mean Corpuscular HGB 27.5 pg (26.0-34.0); Mean Corpuscular HGB Conc 30.3 g/dL (31.5-36.5); Mean Corpuscular Volume 91 fL (80-100); NEUTROPHILS ABSOLUTE AUTO 4.99 K/mm3 (1.96-9.15); NEUTROPHILS PERCENT AUTO 30 % (41-73); Platelet Count 77 K/mm3 (150-400); RDW Coefficient Variation 15.2 % (11.7-14.2); RDW Standard Deviation 50.6 fL (35.1-46.3); Red Blood Cell Count 3.75 M/mm3 (3.80-5.20); White Blood Cell Count 16.83 K/mm3 (4.00-11.30)
[2022-05-18 05:19] LABS: Mean Platelet Volume 14.5 fL (9.1-12.4)
[2022-05-18 05:41] LABS: Albumin, Blood 2.8 g/dL (3.4-5.0); Anion Gap 3 mmol/L (6-16); Blood Urea Nitrogen 46 mg/dL (8-24); Bun/Creatinine Ratio 45.5 (12.0-20.0); CO2, Blood 24 mmol/L (21-32); Calcium, Blood 7.7 mg/dL (8.5-10.1); Chloride, Blood 112 mmol/L (98-108); Creatinine, Blood 1.01 mg/dL (0.40-1.00); Glomerular Filtration Rate 57 (60-); Glucose, Blood 77 mg/dL (70-99); Phosphorus, Blood 2.8 mg/dL (2.5-4.9); Potassium, Blood 5.1 mmol/L (3.5-5.5); Sodium, Blood 139 mmol/L (136-145)
--- NOTE | 2022-05-18 18:12 | NUR ---
SHIFT SUMMARY PATIENT ALERT AND ORIENTED THROUGHOUT SHIFT. CHAIRFAST. 1 PERSON MOD ASSIST TO PIVOT TRANSFER TO CHAIR AND BACK. KYPHOTIC SPINE AND CHRONIC BACK AND NECK PAIN WORSE WITH MOVEMENT. DID NOT TOLERATE SITTING UP IN CHAIR FOR MORE THAN 30 MINUTES. Q2 HOUR REPOSITIONING WHEN IN BED. CRACKLES IN BASES OF LUNGS, LASIX RESTARTED THIS IS SUSPECTED TO BE CHF RELATED FLUID. MILD SHORTNESS OF BREATH BUT SATTING WELL ON ROOM AIR. OVERALL FRAIL AND DECONDITIONED. INCONTINENT OF URINE AND BOWEL, ATTENDS IN PLACE AND CHANGED PRN. SKIN FRAGILE, EGG CRATE IN PLACE AND MEPILEX TO DIME-SIZED ULCER ON COCCYX. PLAN TO CONTINUE CARE IN HOSPITAL UNTIL PAST 10 DAYS OF COVID INFECTION AND THEN WILL DISCHARGE TO SNF.
--- NOTE | 2022-05-19 04:11 | NUR ---
SHIFT SUMMARY ADMITTED FOR SOB. FULL CODE. ENHANCED ISOLATION FOR COVID+. TELEMETRY: NSR @ 92 BPM. MEPILEX ON COCCYX AND HEELS. SHE DOES HAVE A DIME SIZED ULCER ON COCCYX. SHE IS A&O X4. SHE IS INCONTINENT. LOOSE BM THIS SHIFT. PLAN IS FOR DC TO REHAB WHEN ISOLATION TIME IS COMPLETED. SHE IS WORKING WITH PT/OT.
[2022-05-19 11:02] LABS: BASOPHILS ABSOLUTE AUTO 0.07 K/mm3 (0.00-0.23); BASOPHILS PERCENT AUTO 0 % (0-2); EOSINOPHILS ABSOLUTE AUTO 0.08 K/mm3 (0.00-0.68); EOSINOPHILS PERCENT AUTO 0 % (0-6); Hematocrit 39.8 % (33.0-51.0); Hemoglobin 12.3 g/dL (11.5-16.0); IMMATURE GRAN ABSOLUTE AUTO 0.61 K/mm3 (0.00-0.10); IMMATURE GRAN PERCENT AUTO 3 % (0-1); LYMPHOCYTES ABSOLUTE AUTO 1.88 K/mm3 (0.84-5.20); LYMPHOCYTES PERCENT AUTO 9 % (21-46); MONOCYTES PERCENT AUTO 42 % (4-13); Mean Corpuscular HGB 27.4 pg (26.0-34.0); Mean Corpuscular HGB Conc 30.9 g/dL (31.5-36.5); Mean Corpuscular Volume 89 fL (80-100); NEUTROPHILS ABSOLUTE AUTO 9.89 K/mm3 (1.96-9.15); NEUTROPHILS PERCENT AUTO 46 % (41-73); RDW Coefficient Variation 15.2 % (11.7-14.2); RDW Standard Deviation 49.3 fL (35.1-46.3); Red Blood Cell Count 4.49 M/mm3 (3.80-5.20); White Blood Cell Count 21.53 K/mm3 (4.00-11.30)
[2022-05-19 11:08] LABS: Mean Platelet Volume 13.8 fL (9.1-12.4); Platelet Count 86 K/mm3 (150-400)
[2022-05-19 11:26] LABS: Bun/Creatinine Ratio 37.5 (12.0-20.0); Calcium, Blood 8.7 mg/dL (8.5-10.1); Creatinine, Blood 0.88 mg/dL (0.40-1.00); Potassium, Blood 4.7 mmol/L (3.5-5.5)
--- NOTE | 2022-05-19 19:18 | NUR ---
SHIFT SUMMARY PATIENT ALERT AND ORIENTED. TOLERATING DIET AND LIQUIDS. SBA WITH FWW UP TO CHAIR. ATTENDS IN PLACE. CHEST XRAY THIS SHIFT IMPROVED. SOB IMPROVED, SATTING WELL ON ROOM AIR. LASIX DOSE INCREASED. LUNG SOUNDS MORE CONGESTED THIS SHIFT SHE CONTINUES TO LOOSEN AND CLEAR SECRETIONS. MEDICATED FOR PAIN PRN.
--- NOTE | 2022-05-20 05:26 | NUR ---
SHIFT SUMMARY ADMITTED FOR SOB/TACHYPNEA. FULL CODE. COVID+. PLAN IS FOR DC TO REHAB WHEN ISOLATION PERIOD IS COMPLETE. SHE IS 1 ASSIST TO BSC. INCONTINENT. MONITORING ELEVATED WBC LABS. TYLENOL GIVEN FOR CHRONIC BACK PAIN. 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 MEPILEX ON SMALL ULCER ON COCCYX. SHE IS ON ENTRESTO AND LOVENOX. SHE IS BEING DIURESED. HX: CHF
[2022-05-20 05:58] LABS: Hematocrit 35.3 % (33.0-51.0); Hemoglobin 11.2 g/dL (11.5-16.0); Mean Corpuscular HGB Conc 31.7 g/dL (31.5-36.5); Mean Corpuscular Volume 88 fL (80-100); Mean Platelet Volume 13.6 fL (9.1-12.4); Platelet Count 87 K/mm3 (150-400); RDW Coefficient Variation 15.3 % (11.7-14.2); RDW Standard Deviation 49.1 fL (35.1-46.3)
[2022-05-20 06:13] LABS: Albumin, Blood 2.8 g/dL (3.4-5.0); Anion Gap 4 mmol/L (6-16); Blood Urea Nitrogen 37 mg/dL (8-24); Bun/Creatinine Ratio 35.2 (12.0-20.0); CO2, Blood 26 mmol/L (21-32); Calcium, Blood 8.3 mg/dL (8.5-10.1); Chloride, Blood 110 mmol/L (98-108); Creatinine, Blood 1.05 mg/dL (0.40-1.00); Glomerular Filtration Rate 54 (60-); Glucose, Blood 84 mg/dL (70-99); Phosphorus, Blood 2.6 mg/dL (2.5-4.9); Potassium, Blood 4.8 mmol/L (3.5-5.5); Sodium, Blood 140 mmol/L (136-145)
[2022-05-20 06:43] LABS: BASOPHILS ABSOLUTE MAN 0.33 K/mm3 (0.00-0.23); BASOPHILS PERCENT MAN 2 % (0-2); EOSINOPHILS PERCENT MAN 0 % (0-6); LYMPHOCYTES ABSOLUTE MAN 1.52 K/mm3 (0.84-5.20); LYMPHOCYTES PERCENT MAN 9 % (21-46); MONOCYTES ABSOLUTE MAN 5.23 K/mm3 (0.16-1.47); MONOCYTES PERCENT MAN 31 % (4-13); SEG NEUTROPHILS PERCENT MAN 58 % (41-73); TOTAL CELLS COUNTED 100
--- NOTE | 2022-05-20 15:34 | NUR ---
SUMMARY- PT ALERT AND ORIENTED. GOT UP IN THE CHAIR WITH PT AND STAYED UP THROUGH LUNCH. PT STATES HER BREATHING HAS GREATLY IMPROVED SINCE ADMIT, AND SHE IS BEGINNING TO CLEAR SOME SECRETIONS. HAS A STRONG COUGH. TOLERATING FOOD AND FLUIDS. UNABLE TO OBTAIN ACCURATE I/O RELATED TO PT INCONTINANCE. CHRONIC BACK PAIN CONTROLLED WITH TYLENOL.
--- NOTE | 2022-05-21 04:19 | NUR ---
SHIFT SUMMARY ADMITTED FOR SOB/TACHYPNEA. FULL CODE. COVID+. PLAN IS FOR DC TO REHAB FACILITY WHEN ISOLATION IS COMPLETE. SHE IS ON RA. 1 ASSIST TO BSC. 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 MEPILEX ON COCCYX ULCER (DIME SIZED), AND ON HEELS. SHE IS INCONTINENT. SHE IS A&O X4 AND COOPERATIVE WITH CARE. SHE IS ON ENTRESTO. LOOSE BM'S REPORTED. HX OF CHF, BONE MARROW BIOPSY OUTPT - AWAITING RESULTS.
[2022-05-21 05:47] LABS: Bun/Creatinine Ratio 43.7 (12.0-20.0); Calcium, Blood 8.1 mg/dL (8.5-10.1); Creatinine, Blood 0.94 mg/dL (0.40-1.00); Potassium, Blood 4.9 mmol/L (3.5-5.5)
[2022-05-21 05:55] LABS: BASOPHILS ABSOLUTE AUTO 0.04 K/mm3 (0.00-0.23); BASOPHILS PERCENT AUTO 0 % (0-2); EOSINOPHILS ABSOLUTE AUTO 0.13 K/mm3 (0.00-0.68); EOSINOPHILS PERCENT AUTO 1 % (0-6); Hemoglobin 10.5 g/dL (11.5-16.0); IMMATURE GRAN ABSOLUTE AUTO 0.29 K/mm3 (0.00-0.10); IMMATURE GRAN PERCENT AUTO 2 % (0-1); LYMPHOCYTES ABSOLUTE AUTO 2.02 K/mm3 (0.84-5.20); LYMPHOCYTES PERCENT AUTO 14 % (21-46); MONOCYTES ABSOLUTE AUTO 6.78 K/mm3 (0.16-1.47); MONOCYTES PERCENT AUTO 47 % (4-13); Mean Corpuscular HGB 27.7 pg (26.0-34.0); Mean Corpuscular HGB Conc 31.8 g/dL (31.5-36.5); Mean Corpuscular Volume 87 fL (80-100); NEUTROPHILS ABSOLUTE AUTO 5.31 K/mm3 (1.96-9.15); NEUTROPHILS PERCENT AUTO 36 % (41-73); Platelet Count 93 K/mm3 (150-400); RDW Coefficient Variation 15.1 % (11.7-14.2); RDW Standard Deviation 47.9 fL (35.1-46.3); Red Blood Cell Count 3.79 M/mm3 (3.80-5.20); White Blood Cell Count 14.57 K/mm3 (4.00-11.30)
[2022-05-21 06:03] LABS: Mean Platelet Volume 13.4 fL (9.1-12.4)
--- NOTE | 2022-05-21 17:09 | NUR ---
PATIENT IS VERY PLEASANT. SHE HAS A HARSH COUGH THAT IS PRODUCTIVE DUE TO HER COVID. SHE HAS GENERALIZED PAIN BUT NO COMPLAINTS. DRESSING ON COCCYX CHANGED AND THE AREA AROUND THE ULCER APPEARS HEALTHY. THE ULCER ITSELF IS SMALL BUT OPEN. PATIENT IS RECEIVING LASIX TO PULL THE EXTRA FLUID WITH CHF HISTORY. APPETITE IS DECREASED. PATIENT ATE SMALL PERCENT OF LUNCH. PATIENT HAS NO COMPLAINS OF SHORTNESS OF BREATH OR CHEST PAIN.
--- NOTE | 2022-05-22 05:44 | NUR ---
NOC SHIFT SUMMARY: PATIENT AOX4 DURING SHIFT. VSS AND AFEBRILE THIS SHIFT. O2 RA. REPORTS SHE IS COUGHING LESS THIS EVENING. INCONTINENT OF BOWEL AND BLADDER WEARING BRIEF. VOIDING FREQUENTLY. UNABLE TO TRACK OUTPUT INCONTINENT AND PURWICK WAS ATTEMPTED WITHOUT SUCESS. PT. HAD GENERLIZED PAIN THIS EVENING ADMIN PRN TYLENOL. PT. REMORTS INTERMITTANT SLEEP THIS EVENING. SHE IS PLEASANT AND COOPERATIVE.
--- NOTE | 2022-05-22 18:15 | NUR ---
PT QUITE PLEASANT TODAY. ENCOURAGED TO EAT AND MOVE MUCH CAN. DID TAKE SHOWER TODAY. DID SIT IN CHAIR SOME TODAY. BP WAS SOME LOWER THIS AFTERNOON. RECHECKED LATER, WAS WNL SO ABLE TO GIVE MEDS. DOES STATE FEELS SOME BETTER OVERALL. NO NEW CONCENRS NOTED TODAY. BE IN LOW POSITION, CALL LITE IN REACH, CALLS APPROP
[2022-05-23 05:26] LABS: BASOPHILS ABSOLUTE AUTO 0.05 K/mm3 (0.00-0.23); BASOPHILS PERCENT AUTO 0 % (0-2); EOSINOPHILS ABSOLUTE AUTO 0.16 K/mm3 (0.00-0.68); EOSINOPHILS PERCENT AUTO 1 % (0-6); Hematocrit 33.7 % (33.0-51.0); Hemoglobin 10.7 g/dL (11.5-16.0); IMMATURE GRAN PERCENT AUTO 2 % (0-1); LYMPHOCYTES ABSOLUTE AUTO 2.21 K/mm3 (0.84-5.20); LYMPHOCYTES PERCENT AUTO 12 % (21-46); MONOCYTES ABSOLUTE AUTO 7.78 K/mm3 (0.16-1.47); MONOCYTES PERCENT AUTO 43 % (4-13); Mean Corpuscular HGB 27.9 pg (26.0-34.0); Mean Corpuscular HGB Conc 31.8 g/dL (31.5-36.5); Mean Corpuscular Volume 88 fL (80-100); Mean Platelet Volume 12.9 fL (9.1-12.4); NEUTROPHILS ABSOLUTE AUTO 7.44 K/mm3 (1.96-9.15); NEUTROPHILS PERCENT AUTO 41 % (41-73); Platelet Count 147 K/mm3 (150-400); RDW Coefficient Variation 14.9 % (11.7-14.2); RDW Standard Deviation 47.8 fL (35.1-46.3); Red Blood Cell Count 3.84 M/mm3 (3.80-5.20); White Blood Cell Count 17.94 K/mm3 (4.00-11.30)
[2022-05-23 05:59] LABS: Bun/Creatinine Ratio 40.4 (12.0-20.0); Calcium, Blood 8.4 mg/dL (8.5-10.1); Creatinine, Blood 0.94 mg/dL (0.40-1.00); Potassium, Blood 4.2 mmol/L (3.5-5.5)
--- NOTE | 2022-05-23 06:38 | NUR ---
SHIFT SUMMARY - NOC PATIENT AOX4 O2 RA PT SLEPT WELL THROUGH NIGHT. PRN TYLENOL ADMIN FOR GENERALIZED PAIN. PT. OOB SBA TO USE BSC.
--- NOTE | 2022-05-23 17:56 | NUR ---
NO ACUTE CHANGES THIS SHIFT. VSS, CONTINUES ON RA. REPORTS R CHEST PAIN WITH COUGH, OTHERWISE DENIES, DR. KNOTT NOTIFIED. DRESSING CHANGED TO COCCYX WOUND, SURROUNDING TISSUE BLANCHABLE. TYLENOL GIVEN X1 FOR NECK/BACK PAIN WITH STATED RELIEF. CALM AND COOPERATIVE WITH CARE, CALLS APPROPRIATELY FOR ASSISTANCE. A FEW EPISODES OF DIARRHEA TODAY. INCONTINENT OF BOWEL BLADDER. UP TO CHAIR FOR MEALS WITH FWW AND 1 ASSIST.
[2022-05-24 05:35] LABS: Albumin, Blood 2.9 g/dL (3.4-5.0); Albumin/Globulin Ratio 0.7 (0.8-1.8); Bilirubin, Total 0.2 mg/dL (0.1-1.0); Bun/Creatinine Ratio 43.1 (12.0-20.0); Calcium, Blood 8.3 mg/dL (8.5-10.1); Creatinine, Blood 0.81 mg/dL (0.40-1.00); Globulin, Blood 4.4 g/dL (2.2-4.0); Potassium, Blood 4.3 mmol/L (3.5-5.5); Total Protein, Blood 7.3 g/dL (6.4-8.2)
--- NOTE | 2022-05-24 06:56 | NUR ---
AUTOMOTIVE SHOP FOREMAN SUMMARY NO ACUTE CHANGES. PT A/OX4. PT C/O OF PAIN W/COUGH; AND CHRONIC NECK/BACK PAIN; MED W/TYLENOL W/GOOD EFFICACY. PT PLEASANT AND COOPERATIVE W/CARE. ABLE TO MAKE NEEDS KNOWN. CALL LIGHT IN REACH.
--- NOTE | 2022-05-24 16:46 | NUR ---
SHIFT SUMMARY PT A&OX4 SINCE TIME OF ARRIVAL FROM PCU. SPOUSE IN TO SEE PT THIS EVENING. CALL LIGHT W/IN REACH, VSS. 1L NC, 97% LIPS APPEAR CYANOTIC. TOLERATING PO INTAKE. PT APPEARS ANXIOUS, PRESSURED SPEECH @ TIMES.
--- NOTE | 2022-05-24 16:49 | NUR ---
SHIFT SUMMARY PT A&OX4 AND IN PLEASENT MOOD T/O SHIFT. DAUGHTER IN TO SEE PT T/O VISITING HOURS. PT UP TO BSC, 1X STAND PIVOT. TOLERATING PO INTAKE. RA. CALL LIGHT W/IN REACH. PAIN MEDICATED PER EMAR. AWAITING ISO FOR REHAB PLACEMENT.
--- NOTE | 2022-05-25 05:25 | NUR ---
THERAPEUTIC SALES SPECIALIST SUMMARY NO ACUTE CHANGES. PT SLEPT T/O THE NIGHT. PLEASANT AND COOPERATIVE WITH CARE. ABLE TO MAKE NEEDS KNOWN. PT STATED TOMORROW SHE WANTS TO GET OUT OF BED AND WALK MORE TO BUILD STRENGTH. CALL LIGHT IN REACH.
--- NOTE | 2022-05-25 05:43 | NUR ---
SERVICE LINE LAYER SUMMARY PT AWAKE INTERMITTANTLY T/O THE NIGHT. PT CONT TO HAVE LOOSE STOOLS; HE BECOMES SLIGHTLY AGITATED DURING DIRECT CARE BUT ABLE TO FOLLOW DIRECTIONS AND ASSISTS W/TURNING. SPEECH IS GARBELED. PT DENIES PAIN OR NEED FOR MEDICATION WHEN ASSESSED. SITTING PT UP TO DRINK THICKENED LEMON WATER THROUGH A STRAW; TOLERATES OK; UNABLE TO SAFELY DRINK WATER. PT WILL SOMETIME USE CALL LIGHT; CALL LIGHT IN REACH. CONT W/Q2 COMFORT ASSESSMENTS T/O SHIFT.
--- NOTE | 2022-05-25 18:16 | NUR ---
PT VERY PLEASANT TODAY. NO C/O PAIN TODAY. CONTINUES TO BE AT ONLY 1. DAUGHTERS IN TO VISIT TODAY. SHE REFUSED TO GET UP AND WALK TODAY WITH [place] P/T. PT DENIED THIS VERENICE IN FRONT OF DAUGHTER. PT CONTINUES TO HAVE CLEAR LUNGS. ON R/A. DENIES SOB WHILE AT REST. HOPING D/C IN DAY OR TWO. NO NEW CONCERNS NOTED TODAY. BED IN LOW POSITION, CA LL LITE IN [facility], CALLS APORP
--- NOTE | 2022-05-26 05:28 | NUR ---
PHYSICIAN LOCUMS URGENT CARE SUMMARY NO ACUTE CHANGES. PT PLEASANT AND COOPERATIVE W/CARE. PT STATES SHE IS FEELING BETTER; STILL COUGHING UP THICK YELLOWISH SPUTUM; NOT OBSERVED BY THIS NURSE. LUNGS DIMINISHED/CLEAR. CALL LIGHT IN REACH.
--- NOTE | 2022-05-26 16:54 | NUR ---
NO ACUTE CHANGES PT AOXX4 AND COOPERATIVE OF CARE NOT DISTESS NOTED. PT RESTING IN BED AND CAN MAKE NEEDS KNOWN. CALL LIGHT WITHIN REACH WILL CONTINUE TO MONITOR.
--- NOTE | 2022-05-26 17:40 | NUR ---
PT HAD A LOW BP OF 87/52 HR 78. HELD METOPROLOL AND LASIX. DR CALVIN WAS NOTIFIED. PT DENIED ANY LIGHTHEADED FEELINGS. WILL CONTINUE TO MONITOR.
[2022-05-27 05:12] LABS: Hematocrit 37.6 % (33.0-51.0); Hemoglobin 11.3 g/dL (11.5-16.0); Mean Corpuscular HGB Conc 30.1 g/dL (31.5-36.5); Mean Corpuscular Volume 90 fL (80-100); Mean Platelet Volume 12.5 fL (9.1-12.4); Platelet Count 223 K/mm3 (150-400); RDW Coefficient Variation 15.2 % (11.7-14.2); RDW Standard Deviation 49.4 fL (35.1-46.3); Red Blood Cell Count 4.19 M/mm3 (3.80-5.20)
[2022-05-27 05:13] LABS: White Blood Cell Count 27.37 K/mm3 (4.00-11.30)
[2022-05-27 05:38] LABS: Albumin, Blood 3.2 g/dL (3.4-5.0); Anion Gap 5 mmol/L (6-16); Blood Urea Nitrogen 44 mg/dL (8-24); Bun/Creatinine Ratio 41.9 (12.0-20.0); CO2, Blood 29 mmol/L (21-32); Calcium, Blood 8.4 mg/dL (8.5-10.1); Chloride, Blood 107 mmol/L (98-108); Creatinine, Blood 1.05 mg/dL (0.40-1.00); Glomerular Filtration Rate 54 (60-); Glucose, Blood 92 mg/dL (70-99); Phosphorus, Blood 3.9 mg/dL (2.5-4.9); Potassium, Blood 4.3 mmol/L (3.5-5.5); Sodium, Blood 141 mmol/L (136-145)
[2022-05-27 05:55] LABS: BAND PERCENT MAN 2 % (0-8); BASOPHILS PERCENT MAN 0 % (0-2); EOSINOPHILS ABSOLUTE MAN 0.54 K/mm3 (0.00-0.68); EOSINOPHILS PERCENT MAN 2 % (0-6); LYMPHOCYTES ABSOLUTE MAN 3.55 K/mm3 (0.84-5.20); LYMPHOCYTES PERCENT MAN 13 % (21-46); METAMYELOCYTE ABSOLUTE MAN 0.54 K/mm3 (0.00-0.00); METAMYELOCYTE PERCENT MAN 2 % (0-0); MONOCYTES ABSOLUTE MAN 11.76 K/mm3 (0.16-1.47); MONOCYTES PERCENT MAN 43 % (4-13); MYELOCYTE ABSOLUTE MAN 0.27 K/mm3 (0.00-0.00); MYELOCYTE PERCENT MAN 1 % (0-0); NEUTROPHILS ABSOLUTE MAN 10.67 K/mm3 (1.96-9.15); SEG NEUTROPHILS PERCENT MAN 37 % (41-73); TOTAL CELLS COUNTED 100
[2022-05-27] MEDS ORDERED: METO25 PO (13:44)
--- NOTE | 2022-05-27 16:03 | NUR ---
PT DISCHARGED TO [facility] AT 1540 VIA [facility] WHEELCHAIR. ALL PERSONAL BELONGINGS COLLECTED AND SENT WITH PT. REPORT CALLED TO [facility] PRIOR TO DISCHARGE. PT DOING WELL TREATED FOR BACK PAIN PER EMAR. PT INCONTENT AND NEEDS POSITION CHANGES. PT PLEASANT AND READY TO GO. NO DISTRESSS NOTED PACKET GIVEN TO GLASSWARE MAKER.
== END 2022-05-27 16:02 ==
LOC: ER 15:47 → MEDS 15:48
PROVIDERS: Internal Medicine; Physician Assistant; Student in an Organized Health Care Education/Training Program; ADMIT Family Medicine
DX: U07.1 COVID-19 (principal); I50.23 Acute on chronic systolic (congestive) heart failure; N17.9 Acute kidney failure, unspecified; I10 Essential (primary) hypertension; M80.88XA Other osteoporosis with current pathological fracture, vertebra(e), initial encounter for fracture; I11.0 Hypertensive heart disease with heart failure; K21.9 Gastro-esophageal reflux disease without esophagitis; D69.6 Thrombocytopenia, unspecified; R07.9 Chest pain, unspecified
CPT/HCPCS: 0241U; 36415; 71045; 80048; 80053; 80069; 82306; 83735; 83880; 84484; 85025; 93005; 93010; 96361; 96374; 96375; 97110; 97110-CO; 97116; 97116-CQ; 97162; 97166; 97530; 97530-CO; 97530-CQ; 99285-25; A9270; J1650; J1940; J2405; J7030

== ENCOUNTER → 2023-02-22 | Outpatient (CLI) | payer OTHER ==
[~2023-02-22] MED LIST changes: +METO25 PO
[2023-02-25 15:10] LABS: ALBUMIN 3.9 g/dL (2.9-4.4); ALPHA-1-GLOBULIN 0.2 g/dL (0.0-0.4); ALPHA-2-GLOBULIN 0.6 g/dL (0.4-1.0); BETA GLOBULIN 0.7 g/dL (0.7-1.3); GAMMA GLOBULIN 2.6 g/dL (0.4-1.8); GLOBULIN, TOTAL 4.1 g/dL (2.2-3.9); IMMUNOGLOBULIN A, QN, SERUM 203 mg/dL (64-422); IMMUNOGLOBULIN G, QN, SERUM 3140 mg/dL (586-1602); IMMUNOGLOBULIN M, QN, SERUM 88 mg/dL (26-217); M-SPIKE 1.7 g/dL (Not Observed)
== END | disposition home or self-care (01) ==
LOC: LAB 13:31 → LAB SHORT 13:31
PROVIDERS: Internal Medicine Hematology & Oncology
DX: C90.00 Multiple myeloma not having achieved remission (principal)
CPT/HCPCS: 82784; 83521; 84155; 84165; 86334

== ENCOUNTER 2023-03-11 15:33 | Inpatient (IN) | payer OTHER ==
[~2023-03-11] VITALS: Ht 165.1 cm; Wt 42.0 kg
[2023-03-11 17:42] LABS: Source, Urine Clean Catch
[2023-03-11 17:44] LABS: Appearance, Urine Clear (Clear); Bilirubin, Urine Neg (Neg); Blood, Urine 3+ (Neg); Color, Urine Yellow (P-Yellow); Glucose Qualitative, Urine Neg (Neg); Ketones, Urine Neg (Neg); Leukocyte Esterase, Urine 1+ (Neg); Nitrite, Urine Neg (Neg); Protein, Urine 1+ (Neg); Specific Gravity, Urine 1.015 (1.003-1.022); Urobilinogen, Urine NORM (Normal)
[2023-03-11 17:53] LABS: Bacteria Mod /hpf; Squamous Epithelial Cells Few /hpf (Few)
[2023-03-11] MEDS ORDERED: ALLO300 (20:36)
[2023-03-11] MEDS ORDERED: ALLO300 PO (20:37)
[2023-03-11 20:40] LABS: Hematocrit 26.2 % (33.0-51.0); Hemoglobin 8.2 g/dL (11.5-16.0); Mean Corpuscular HGB 28.5 pg (26.0-34.0); Mean Corpuscular HGB Conc 31.3 g/dL (31.5-36.5); Mean Corpuscular Volume 91 fL (80-100); Platelet Count 71 K/mm3 (150-400); RDW Coefficient Variation 13.4 % (11.7-14.2); RDW Standard Deviation 44.7 fL (35.1-46.3); Red Blood Cell Count 2.88 M/mm3 (3.80-5.20)
[2023-03-11] MEDS ORDERED: FAMC500 PO (20:40)
[2023-03-11] MEDS ORDERED: SPIRONOLACTONE25 MG PO (20:43)
[2023-03-11] MEDS ORDERED: ATORVASTATIN CA20 MG PO (20:44)
[2023-03-11 20:47] LABS: White Blood Cell Count 25.01 K/mm3 (4.00-11.30)
[2023-03-11] MEDS ORDERED: ONDANSETRON ODT 4MG (20:48)
--- NOTE | 2023-03-11 20:59 | NUR ---
PT CHART REVIEWED FOR ADMISSION
[2023-03-11 21:26] LABS: BASOPHILS PERCENT MAN 0 % (0-2); EOSINOPHILS ABSOLUTE MAN 0.25 K/mm3 (0.00-0.68); EOSINOPHILS PERCENT MAN 1 % (0-6); LYMPHOCYTES PERCENT MAN 4 % (21-46); MONOCYTES ABSOLUTE MAN 3.75 K/mm3 (0.16-1.47); MONOCYTES PERCENT MAN 15 % (4-13); SEG NEUTROPHILS PERCENT MAN 80 % (41-73); TOTAL CELLS COUNTED 100
[2023-03-11 22:14] VITALS: BP 99/53
--- NOTE | 2023-03-11 23:05 | NUR ---
ADMIT. PATIENT ARRIVED TO FLOOR AT 2205 VIA GURNEY FROM THE ED. PATIENT HAS MEDICATIONS IN PERSONAL BELONGINGS THAT WILL BE LOCKED UP FOR SAFETY. PATIENT IS ALERT AND ORIENTED TO PERSON, PLACE, TIME, DATE AND SITUATION. PATIENT STATES SHE LIVES AT HOME WITH HER SON. BED IS IN THE LOWEST POSITION AND CALL LIGHT IS WITHIN REACH, PATIENT IS ABLE TO MAKE HER NEEDS KNOWN.
[2023-03-12] VITALS (9 sets, daily range): BP systolic 96–118; BP diastolic 47–65
--- NOTE | 2023-03-12 04:53 | NUR ---
SHIFT SUMMARY. PT. IS OF PLEASANT AFFECT, ALERT AND ORIENTED TO PERSON, PLACE, TIME AND SITUATION. PT. REPORTED THAT SHE TOOK A LAXATIVE ON WEDNESDAY MORNING. PT. DENIES CHEST PAIN/TIGHTNESS/PRESSURE. PT. HAS NOT BEEN AMBULATORY AT THIS TIME, SHE HAS HER PERSONAL WHEELCHAIR IN ROOM AND REPORTS THAT SHE USES A WALKER AT HOME. PT. ASLEEP WITH EQUAL AND UNLABORED RESPIRATION. BED IS IN THE LOWEST POSITION AND CALL LIGHT IS WIHTIN REACH.
[2023-03-12 05:29] LABS: Albumin, Blood 2.8 g/dL (3.4-5.0); Albumin/Globulin Ratio 0.9 (0.8-1.8); Bilirubin, Total 0.2 mg/dL (0.1-1.0); Bun/Creatinine Ratio 45.9 (12.0-20.0); Calcium, Blood 8.5 mg/dL (8.5-10.1); Creatinine, Blood 1.83 mg/dL (0.40-1.00); Globulin, Blood 3.1 g/dL (2.2-4.0); Potassium, Blood 4.4 mmol/L (3.5-5.5); Total Protein, Blood 5.9 g/dL (6.4-8.2)
[2023-03-12 05:33] LABS: Hematocrit 21.2 % (33.0-51.0); Hemoglobin 6.8 g/dL (11.5-16.0); Mean Corpuscular HGB 29.1 pg (26.0-34.0); Mean Corpuscular HGB Conc 32.1 g/dL (31.5-36.5); Mean Corpuscular Volume 91 fL (80-100); Platelet Count 60 K/mm3 (150-400); RDW Coefficient Variation 13.4 % (11.7-14.2); Red Blood Cell Count 2.34 M/mm3 (3.80-5.20)
--- NOTE | 2023-03-12 06:37 | NUR ---
PT. Hgb 6.8 g/dL, DOCTOR RHIANNA SCHUSTER, ORDERED ONE UNIT OF PACKED RED BLOOD CELLS TO BE INFUSED. ORDERS IN, WILL REPORT NEW ORDERS TO ON-COMING NURSE.
[2023-03-12 06:49] LABS: BAND PERCENT MAN 1 % (0-8); BASOPHILS PERCENT MAN 0 % (0-2); EOSINOPHILS PERCENT MAN 1 % (0-6); LYMPHOCYTES PERCENT MAN 2 % (21-46); MONOCYTES PERCENT MAN 11 % (4-13); SEG NEUTROPHILS PERCENT MAN 85 % (41-73); TOTAL CELLS COUNTED 100
[2023-03-12 06:54] LABS: EOSINOPHILS ABSOLUTE MAN 0.16 K/mm3 (0.00-0.68); LYMPHOCYTES ABSOLUTE MAN 0.33 K/mm3 (0.84-5.20); MONOCYTES ABSOLUTE MAN 1.86 K/mm3 (0.16-1.47); White Blood Cell Count 16.98 K/mm3 (4.00-11.30)
--- NOTE | 2023-03-12 11:28 | NUR ---
"Spiritual Care Visit | Pt. Request Pt. is awake in bed and welcomes my visit. Pt. is pleasant. Pts. NICOLE is present. Facilitate a short life review and listen with empathy and a calming presence. Pt. displayed evidence of engagement, awareness, but also exhuastion so saravanan shariflacharles kept the visit brief. Prayed with the Pt. Pt. and NICOLE verbalize gratitude for the spiritual care visit."
--- NOTE | 2023-03-12 19:51 | NUR ---
SHIFT SUMMARY PATIENT VERY SLEEPY IN AM, PERKED UP AFTER 1 UNIT PRBC TODAY AND ABLE TO EAT SOME LUNCH AND DINNER. BED IN LOW POSITION, CALL LIGHT IN REACH. PATIENT CALLS APPROPRIATELY
[2023-03-13 03:55] VITALS: BP 122/59
[2023-03-13 05:52] LABS: Hematocrit 27.7 % (33.0-51.0); Hemoglobin 8.7 g/dL (11.5-16.0); Mean Corpuscular HGB 27.9 pg (26.0-34.0); Mean Corpuscular HGB Conc 31.4 g/dL (31.5-36.5); Mean Corpuscular Volume 89 fL (80-100); Platelet Count 62 K/mm3 (150-400); RDW Coefficient Variation 15.5 % (11.7-14.2); RDW Standard Deviation 49.4 fL (35.1-46.3); Red Blood Cell Count 3.12 M/mm3 (3.80-5.20)
[2023-03-13 05:57] LABS: White Blood Cell Count 19.76 K/mm3 (4.00-11.30)
[2023-03-13 06:12] LABS: Bun/Creatinine Ratio 43.6 (12.0-20.0); Calcium, Blood 8.8 mg/dL (8.5-10.1); Creatinine, Blood 1.01 mg/dL (0.40-1.00); Potassium, Blood 4.6 mmol/L (3.5-5.5)
[2023-03-13 06:14] LABS: BAND PERCENT MAN 2 % (0-8); BASOPHILS PERCENT MAN 0 % (0-2); EOSINOPHILS PERCENT MAN 0 % (0-6); LYMPHOCYTES ABSOLUTE MAN 2.17 K/mm3 (0.84-5.20); LYMPHOCYTES PERCENT MAN 11 % (21-46); METAMYELOCYTE ABSOLUTE MAN 0.19 K/mm3 (0.00-0.00); METAMYELOCYTE PERCENT MAN 1 % (0-0); MONOCYTES ABSOLUTE MAN 2.17 K/mm3 (0.16-1.47); MONOCYTES PERCENT MAN 11 % (4-13); NEUTROPHILS ABSOLUTE MAN 15.21 K/mm3 (1.96-9.15); SEG NEUTROPHILS PERCENT MAN 75 % (41-73); TOTAL CELLS COUNTED 100
[2023-03-13 07:28] VITALS: BP 112/77
[2023-03-13 12:10] LABS: Stool Occult Blood Guaiac 1 Neg (Neg)
--- NOTE | 2023-03-13 17:04 | NUR ---
PT DISCHARGED HOME WITH FAMILY CARE. DC INSTRUCTIONS AND EDUCATION MATERIAL EXPLAINED TO PT AND DAUGHTER. ALL QUESTIONS ANSWERED. NO PERSCRIPTION MEDICATIONS ORDERED. IV AND TELE DC'D. PT HELPED TO DRESS AND ATTENDS CHANGED. ALL BELONGINGS GATHERED AND HOME MEDICATIONS IN LOCKED DRAWER RETURNED. PT TAKEN BY PERSONAL WHEELCHAIR TO WAITING VEHICLE.
== END 2023-03-13 16:44 | disposition home or self-care (01) | DRG 683 ==
LOC: ER 15:33 → MEDS 21:39
PROVIDERS: Internal Medicine; Physician Assistant; ADMIT Internal Medicine
PROC: 30233N1 Transfusion of Nonautologous Red Blood Cells into Peripheral Vein, Percutaneous Approach (ICD-10-PCS; principal; 2023-03-12)
DX: N17.9 Acute kidney failure, unspecified (principal); C90.00 Multiple myeloma not having achieved remission; I50.22 Chronic systolic (congestive) heart failure; I13.0 Hypertensive heart and chronic kidney disease with heart failure and stage 1 through stage 4 chronic kidney disease, or unspecified chronic kidney disease; N18.9 Chronic kidney disease, unspecified; D63.1 Anemia in chronic kidney disease; R54 Age-related physical debility; D63.0 Anemia in neoplastic disease; M81.0 Age-related osteoporosis without current pathological fracture; K21.9 Gastro-esophageal reflux disease without esophagitis; M71.20 Synovial cyst of popliteal space [Baker], unspecified knee; I95.9 Hypotension, unspecified; B96.20 Unspecified Escherichia coli [E. coli] as the cause of diseases classified elsewhere; Z88.8 Allergy status to other drugs, medicaments and biological substances; Z88.5 Allergy status to narcotic agent; Z79.899 Other long term (current) drug therapy; Z79.01 Long term (current) use of anticoagulants; Z85.3 Personal history of malignant neoplasm of breast; Z90.49 Acquired absence of other specified parts of digestive tract; Z90.11 Acquired absence of right breast and nipple; Z90.710 Acquired absence of both cervix and uterus; Z90.722 Acquired absence of ovaries, bilateral; Z98.890 Other specified postprocedural states; Z87.891 Personal history of nicotine dependence
CPT/HCPCS: 36415; 76770; 80048; 80053; 81001; 82272; 83880; 85025; 86850; 86900; 86901; 86920; 87077; 87086; 87186; 96361; 96372-59; 96374; 99284-25; A9270; J1644; J7030; P9016

== ENCOUNTER → 2023-04-20 | Outpatient (CLI) | payer OTHER ==
[~2023-04-20] MED LIST changes: +ALLO300; +ALLO300 PO; +ATORVASTATIN CA20 MG PO; +FAMC500 PO; +ONDANSETRON ODT 4MG; +SPIRONOLACTONE25 MG PO
[2023-04-20 14:40] LABS: Albumin, Blood 3.9 g/dL (3.4-5.0); Albumin/Globulin Ratio 1.3 (0.8-1.8); Bilirubin, Total 0.3 mg/dL (0.1-1.0); Bun/Creatinine Ratio 26.3 (12.0-20.0); Calcium, Blood 9.5 mg/dL (8.5-10.1); Creatinine, Blood 1.14 mg/dL (0.40-1.00); Globulin, Blood 2.9 g/dL (2.2-4.0); Phosphorus, Blood 3.8 mg/dL (2.5-4.9); Potassium, Blood 4.4 mmol/L (3.5-5.5); Total Protein, Blood 6.8 g/dL (6.4-8.2)
== END | disposition home or self-care (01) ==
LOC: LAB SHORT 10:25 → LAB 10:25
PROVIDERS: Internal Medicine Hematology & Oncology
DX: C90.00 Multiple myeloma not having achieved remission (principal)
CPT/HCPCS: 80053; 83521; 84100

== ENCOUNTER → 2023-04-28 | Outpatient (CLI) | payer OTHER ==
[2023-04-28 15:42] LABS: Hematocrit 27.6 % (33.0-51.0); Hemoglobin 8.5 g/dL (11.5-16.0); Mean Corpuscular HGB 28.7 pg (26.0-34.0); Mean Corpuscular HGB Conc 30.8 g/dL (31.5-36.5); Mean Corpuscular Volume 93 fL (80-100); Mean Platelet Volume 12.6 fL (9.1-12.4); Platelet Count 82 K/mm3 (150-400); RDW Coefficient Variation 15.7 % (11.7-14.2); Red Blood Cell Count 2.96 M/mm3 (3.80-5.20); White Blood Cell Count 7.47 K/mm3 (4.00-11.30)
[2023-04-28 18:02] LABS: BASOPHILS PERCENT MAN 0 % (0-2); EOSINOPHILS PERCENT MAN 0 % (0-6); LYMPHOCYTES ABSOLUTE MAN 1.26 K/mm3 (0.84-5.20); LYMPHOCYTES PERCENT MAN 17 % (21-46); MONOCYTES ABSOLUTE MAN 2.76 K/mm3 (0.16-1.47); MONOCYTES PERCENT MAN 37 % (4-13); NEUTROPHILS ABSOLUTE MAN 3.43 K/mm3 (1.96-9.15); SEG NEUTROPHILS PERCENT MAN 46 % (41-73); TOTAL CELLS COUNTED 100
== END ==
LOC: LAB SHORT 12:13 → LAB 12:13
PROVIDERS: Internal Medicine Hematology & Oncology
DX: C90.00 Multiple myeloma not having achieved remission (principal)
CPT/HCPCS: 85025

== ENCOUNTER → 2023-05-05 | Outpatient (CLI) | payer OTHER ==
[2023-05-07 15:10] LABS: A/G RATIO 1.2 (0.7-1.7); ALBUMIN 3.8 g/dL (2.9-4.4); ALPHA-1-GLOBULIN 0.2 g/dL (0.0-0.4); ALPHA-2-GLOBULIN 0.6 g/dL (0.4-1.0); BETA GLOBULIN 0.7 g/dL (0.7-1.3); GAMMA GLOBULIN 1.7 g/dL (0.4-1.8); GLOBULIN, TOTAL 3.2 g/dL (2.2-3.9); IMMUNOGLOBULIN A, QN, SERUM 103 mg/dL (64-422); IMMUNOGLOBULIN G, QN, SERUM 1734 mg/dL (586-1602); IMMUNOGLOBULIN M, QN, SERUM 63 mg/dL (26-217); M-SPIKE 1.1 g/dL (Not Observed)
== END ==
LOC: LAB 17:31 → LAB SHORT 17:31
PROVIDERS: Internal Medicine Hematology & Oncology
DX: E53.8 Deficiency of other specified B group vitamins (principal); E55.9 Vitamin D deficiency, unspecified; I10 Essential (primary) hypertension
CPT/HCPCS: 82784; 84165; 86334

== ENCOUNTER → 2023-05-11 | Outpatient (CLI) | payer OTHER ==
[2023-05-11 17:15] LABS: Albumin, Blood 3.8 g/dL (3.4-5.0); Albumin/Globulin Ratio 1.4 (0.8-1.8); Bilirubin, Total 0.3 mg/dL (0.1-1.0); Bun/Creatinine Ratio 16.3 (12.0-20.0); Calcium, Blood 9.2 mg/dL (8.5-10.1); Creatinine, Blood 0.98 mg/dL (0.40-1.00); Globulin, Blood 2.8 g/dL (2.2-4.0); Phosphorus, Blood 2.5 mg/dL (2.5-4.9); Potassium, Blood 4.8 mmol/L (3.5-5.5); Total Protein, Blood 6.6 g/dL (6.4-8.2)
== END | disposition home or self-care (01) ==
LOC: LAB 11:25 → LAB SHORT 11:25
PROVIDERS: Internal Medicine Hematology & Oncology
DX: C90.00 Multiple myeloma not having achieved remission (principal)
CPT/HCPCS: 80053; 84100

== ENCOUNTER → 2023-05-17 | Outpatient (CLI) | payer OTHER ==
[~2023-05-17] MED LIST changes: +ALPHA LIPOIC A600 MG PO; +Acetaminophen325 M1 PO; +BACTRIM DS TAB1 EAC6 PO; +DECADRON4 M1 PO; +QUET25 PO; +Revlimid10 MG PO; +VISBIOME 112.51 EACH PO
[2023-05-17 14:45] LABS: Hematocrit 28.8 % (33.0-51.0); Hemoglobin 9.1 g/dL (11.5-16.0); Mean Corpuscular HGB 29.9 pg (26.0-34.0); Mean Corpuscular HGB Conc 31.6 g/dL (31.5-36.5); Mean Corpuscular Volume 95 fL (80-100); Platelet Count 87 K/mm3 (150-400); RDW Coefficient Variation 17.3 % (11.7-14.2); RDW Standard Deviation 60.1 fL (35.1-46.3); Red Blood Cell Count 3.04 M/mm3 (3.80-5.20)
[2023-05-17 15:16] LABS: BASOPHILS ABSOLUTE AUTO 0.01 K/mm3 (0.00-0.23); BASOPHILS PERCENT AUTO 0 % (0-2); EOSINOPHILS ABSOLUTE AUTO 0.01 K/mm3 (0.00-0.68); EOSINOPHILS PERCENT AUTO 0 % (0-6); IMMATURE GRAN ABSOLUTE AUTO 0.07 K/mm3 (0.00-0.10); IMMATURE GRAN PERCENT AUTO 1 % (0-1); LYMPHOCYTES ABSOLUTE AUTO 1.21 K/mm3 (0.84-5.20); LYMPHOCYTES PERCENT AUTO 10 % (21-46); MONOCYTES ABSOLUTE AUTO 3.86 K/mm3 (0.16-1.47); MONOCYTES PERCENT AUTO 32 % (4-13); NEUTROPHILS PERCENT AUTO 58 % (41-73); White Blood Cell Count 12.26 K/mm3 (4.00-11.30)
[2023-05-17 15:28] LABS: Albumin, Blood 3.5 g/dL (3.4-5.0); Bilirubin, Total 0.3 mg/dL (0.1-1.0); Bun/Creatinine Ratio 27.7 (12.0-20.0); Calcium, Blood 9.2 mg/dL (8.5-10.1); Creatinine, Blood 0.94 mg/dL (0.40-1.00); Globulin, Blood 3.4 g/dL (2.2-4.0); Total Protein, Blood 6.9 g/dL (6.4-8.2)
== END ==
LOC: LAB SHORT 14:27 → LAB 14:27
PROVIDERS: Family Medicine
DX: R53.83 Other fatigue (principal)
CPT/HCPCS: 80053; 85025

== ENCOUNTER 2023-05-20 10:48 | Inpatient (IN) | payer OTHER ==
[~2023-05-20] VITALS: Ht 152.4 cm; Wt 43.2 kg
[~2023-05-20 10:48] MED LIST changes: -ALPHA LIPOIC A600 MG PO; -Acetaminophen325 M1 PO; -BACTRIM DS TAB1 EAC6 PO; -DECADRON4 M1 PO; -QUET25 PO; -Revlimid10 MG PO; -VISBIOME 112.51 EACH PO
[2023-05-20 12:17] LABS: PCO2 Venous 37.5 mmHg (38-42); pH Blood Venous 7.32 (7.34-7.37)
[2023-05-20 12:18] LABS: Base Excess Venous -6.9 mmol/L
[2023-05-20 12:29] LABS: Hematocrit 27.2 % (33.0-51.0); Hemoglobin 8.5 g/dL (11.5-16.0); Mean Corpuscular HGB 29.5 pg (26.0-34.0); Mean Corpuscular HGB Conc 31.3 g/dL (31.5-36.5); Mean Corpuscular Volume 94 fL (80-100); Platelet Count 81 K/mm3 (150-400); RDW Coefficient Variation 17.1 % (11.7-14.2); RDW Standard Deviation 59.4 fL (35.1-46.3); Red Blood Cell Count 2.88 M/mm3 (3.80-5.20)
[2023-05-20 12:32] LABS: BASOPHILS ABSOLUTE AUTO 0.01 K/mm3 (0.00-0.23); BASOPHILS PERCENT AUTO 0 % (0-2); EOSINOPHILS ABSOLUTE AUTO 0.01 K/mm3 (0.00-0.68); EOSINOPHILS PERCENT AUTO 0 % (0-6); IMMATURE GRAN ABSOLUTE AUTO 0.19 K/mm3 (0.00-0.10); IMMATURE GRAN PERCENT AUTO 1 % (0-1); LYMPHOCYTES PERCENT AUTO 5 % (21-46); MONOCYTES ABSOLUTE AUTO 6.05 K/mm3 (0.16-1.47); MONOCYTES PERCENT AUTO 39 % (4-13); NEUTROPHILS ABSOLUTE AUTO 8.41 K/mm3 (1.96-9.15); NEUTROPHILS PERCENT AUTO 54 % (41-73); White Blood Cell Count 15.47 K/mm3 (4.00-11.30)
[2023-05-20 12:57] LABS: Albumin, Blood 3.5 g/dL (3.4-5.0); Albumin/Globulin Ratio 1.2 (0.8-1.8); Bilirubin, Total 0.2 mg/dL (0.1-1.0); Bun/Creatinine Ratio 25.7 (12.0-20.0); Creatinine, Blood 2.1 mg/dL (0.40-1.00); Potassium, Blood 3.9 mmol/L (3.5-5.5); Total Protein, Blood 6.5 g/dL (6.4-8.2)
[2023-05-20 15:46] VITALS: BP 100/61
[2023-05-20 15:53] LABS: Thyroid Stimulating Hormone 1.46 uIU/mL (0.360-4.800)
[2023-05-20] MEDS ORDERED: BACTRIM DS TAB1 EAC6 PO (17:12)
[2023-05-20] MEDS ORDERED: DECADRON4 M1 PO (17:13)
[2023-05-20] MEDS ORDERED: QUET25 PO (17:14)
[2023-05-20] MEDS ORDERED: Revlimid10 MG PO (17:14)
[2023-05-20] MEDS ORDERED: ALPHA LIPOIC A600 MG PO (17:18)
[2023-05-20 17:44] LABS: Hematocrit 25.6 % (33.0-51.0); Hemoglobin 7.9 g/dL (11.5-16.0)
--- NOTE | 2023-05-20 18:21 | NUR ---
ADMIT NOTE/SHIFT SUMMARY PT ARRIVED TO PCU FROM ED VIA ED STRETCHER AT APPROX 1530. PT WAS SLID BY 2 STAFF FROM ED STRETCHER TO PCU BED. PT A&OX4. SP02>90% ON RA. TELEMETRY SHOWED NSR, HR 80'S. VSS. PT SOILED, LINEN CHANGED, C/D ATTENDS INTACT. PT INCONTINENT OF URINE. ACCOMPANIED BY BOTH DAUGHTERS. MED LIST UPDATED. LR INFUSING PER EMAR. PT ORIENTED TO ROOM, CALL LIGHT. WARM BLANKETS GIVEN, HEATING PAD APPLIED. CALL LIGHT IN REACH.
[2023-05-20 20:44] VITALS: BP 90/51
[2023-05-20 21:14] LABS: Bun/Creatinine Ratio 31.6 (12.0-20.0); Calcium, Blood 8.5 mg/dL (8.5-10.1); Creatinine, Blood 1.58 mg/dL (0.40-1.00); Potassium, Blood 4.2 mmol/L (3.5-5.5)
[2023-05-20 22:32] VITALS: BP 92/54
[2023-05-21 00:06] LABS: Adenovirus Not Detected (NOT DETECT); Bordetella pertussis Not Detected (NOT DETECT); Chlamydophila pneumoniae Not Detected (NOT DETECT); Coronavirus 229E Not Detected (NOT DETECT); Coronavirus HKU1 Not Detected (NOT DETECT); Coronavirus NL63 Not Detected (NOT DETECT); Coronavirus OC43 Not Detected (NOT DETECT); Human Metapneumovirus Not Detected (NOT DETECT); Human Rhinovirus/Enterovirus Not Detected (NOT DETECT); Influenza A/2009-H1 Not Detected (NOT DETECT); Influenza A/H1 Not Detected (NOT DETECT); Influenza A/H3 Not Detected (NOT DETECT); Influenza B Not Detected (NOT DETECT); Mycoplasma pneumoniae Not Detected (NOT DETECT); Parainfluenza Virus 1 Not Detected (NOT DETECT); Parainfluenza Virus 2 Not Detected (NOT DETECT); Parainfluenza Virus 3 Not Detected (NOT DETECT); Parainfluenza Virus 4 Not Detected (NOT DETECT); Respiratory Syncytial Virus Not Detected (NOT DETECT); SARS-Cov-2 (COVID-19), BioFire Not Detected (NOT DETECT)
[2023-05-21 03:12] VITALS: BP 98/59
--- NOTE | 2023-05-21 04:41 | NUR ---
SHIFT SUMMARY NO ACUTE CHANGES. PT AXO4. IN SR. VSS WITH SOFT BUT STABLE BP'S. ON RA. INCONTNENT AT TIMES, BEING CHANGED BY STAFF. LR INFUSION FINISHED UP. PHYSICIANS FOLLOWED UP ON MED REC THAT WAS COMPLETED AT DAY SHIFT CHANGE. PT HAS SLEPT MAJORITY OF NIGHT AN HAS CALLED WHEN NEEDING ASSISTANCE. BED ALARM ON.
[2023-05-21 04:49] LABS: Albumin, Blood 2.8 g/dL (3.4-5.0); Bilirubin, Total 0.2 mg/dL (0.1-1.0); Bun/Creatinine Ratio 28.3 (12.0-20.0); Calcium, Blood 6.6 mg/dL (8.5-10.1); Creatinine, Blood 1.52 mg/dL (0.40-1.00); Globulin, Blood 2.7 g/dL (2.2-4.0); Potassium, Blood 4.5 mmol/L (3.5-5.5); Total Protein, Blood 5.5 g/dL (6.4-8.2)
[2023-05-21 05:16] LABS: BASOPHILS ABSOLUTE AUTO 0.01 K/mm3 (0.00-0.23); BASOPHILS PERCENT AUTO 0 % (0-2); EOSINOPHILS ABSOLUTE AUTO 0.02 K/mm3 (0.00-0.68); EOSINOPHILS PERCENT AUTO 0 % (0-6); Hematocrit 24.9 % (33.0-51.0); Hemoglobin 7.8 g/dL (11.5-16.0); IMMATURE GRAN ABSOLUTE AUTO 0.11 K/mm3 (0.00-0.10); IMMATURE GRAN PERCENT AUTO 1 % (0-1); LYMPHOCYTES ABSOLUTE AUTO 1.03 K/mm3 (0.84-5.20); LYMPHOCYTES PERCENT AUTO 8 % (21-46); MONOCYTES ABSOLUTE AUTO 6.35 K/mm3 (0.16-1.47); MONOCYTES PERCENT AUTO 46 % (4-13); Mean Corpuscular HGB 29.7 pg (26.0-34.0); Mean Corpuscular HGB Conc 31.3 g/dL (31.5-36.5); Mean Corpuscular Volume 95 fL (80-100); NEUTROPHILS ABSOLUTE AUTO 6.22 K/mm3 (1.96-9.15); NEUTROPHILS PERCENT AUTO 45 % (41-73); Platelet Count 69 K/mm3 (150-400); RDW Coefficient Variation 17.1 % (11.7-14.2); RDW Standard Deviation 59.1 fL (35.1-46.3); Red Blood Cell Count 2.63 M/mm3 (3.80-5.20); White Blood Cell Count 13.74 K/mm3 (4.00-11.30)
[2023-05-21 05:18] LABS: Mean Platelet Volume 14.8 fL (9.1-12.4)
[2023-05-21 08:40] LABS: Test Name ANTIBODY ID
[2023-05-21 09:29] VITALS: BP 92/51
[2023-05-21 09:56] LABS: Source, Urine Clean Catch
[2023-05-21 10:05] LABS: Appearance, Urine Clear (Clear); Bilirubin, Urine Neg (Neg); Blood, Urine Neg (Neg); Color, Urine Yellow (P-Yellow); Glucose Qualitative, Urine Neg (Neg); Ketones, Urine Neg (Neg); Leukocyte Esterase, Urine Neg (Neg); Nitrite, Urine Neg (Neg); Protein, Urine Neg (Neg); Specific Gravity, Urine 1.015 (1.003-1.022); Urobilinogen, Urine NORM (Normal)
--- NOTE | 2023-05-21 10:50 | NUR ---
rm [id number] REPORT CALLED TO XOCHILT RODRGIUEZ. PT TRANSFERED VIA BED ACCOMPANIED BY AUTO REPAIR TECHNICIAN. DAUGHTER AT BEDSIDE. PT AGREEABLE TO TRANSFER. CONTINE POC.
[2023-05-21 15:06] LABS: Bun/Creatinine Ratio 30.7 (12.0-20.0); Calcium, Blood 9.1 mg/dL (8.5-10.1); Creatinine, Blood 1.14 mg/dL (0.40-1.00); Potassium, Blood 4.5 mmol/L (3.5-5.5)
[2023-05-21 15:23] VITALS: BP 85/51
--- NOTE | 2023-05-21 17:57 | NUR ---
PCU TRANSFER Patient transfered from PCU. Patient alert & oriented, appears weak and fatigued resting in bed comfortably. PT/OT worked with patient today, patient SVAx1, GB/FWW for transfers. BP soft. Will continue plan of care.
[2023-05-21 20:15] VITALS: BP 106/62
--- NOTE | 2023-05-22 04:29 | NUR ---
SHIFT SUMMARY 77 YR F ADMITTED ON 05/20/23 FOR ACUTE RENAL FAILURE. FULL CODE. NO ACUTE CHANGES THIS SHIFT. PT HAS SLEPT FOR MOST OF THIS SHIFT. NO C/O PAIN OR DISCOMFORT. LR INFUSING @ 125 PER ORDERS. BED IN LOW POSITION AND CALL LIGHT IN REACH. WILL CONTINUE TO MONITOR.
[2023-05-22 05:18] VITALS: BP 105/63
[2023-05-22 07:08] LABS: Hemoglobin 8.4 g/dL (11.5-16.0); Mean Corpuscular HGB 30.3 pg (26.0-34.0); Mean Corpuscular HGB Conc 32.3 g/dL (31.5-36.5); Mean Corpuscular Volume 94 fL (80-100); Platelet Count 69 K/mm3 (150-400); RDW Coefficient Variation 16.7 % (11.7-14.2); RDW Standard Deviation 57.7 fL (35.1-46.3); Red Blood Cell Count 2.77 M/mm3 (3.80-5.20)
[2023-05-22 07:11] LABS: Bun/Creatinine Ratio 25.2 (12.0-20.0); Calcium, Blood 8.8 mg/dL (8.5-10.1); Creatinine, Blood 0.95 mg/dL (0.40-1.00); Mean Platelet Volume 14.4 fL (9.1-12.4); Potassium, Blood 4.4 mmol/L (3.5-5.5); White Blood Cell Count 12.24 K/mm3 (4.00-11.30)
[2023-05-22 07:21] VITALS: BP 107/60
[2023-05-22 08:28] LABS: BAND PERCENT MAN 1 % (0-8); BASOPHILS PERCENT MAN 0 % (0-2); EOSINOPHILS PERCENT MAN 0 % (0-6); LYMPHOCYTES ABSOLUTE MAN 1.22 K/mm3 (0.84-5.20); LYMPHOCYTES PERCENT MAN 10 % (21-46); MONOCYTES ABSOLUTE MAN 4.89 K/mm3 (0.16-1.47); MONOCYTES PERCENT MAN 40 % (4-13); NEUTROPHILS ABSOLUTE MAN 6.12 K/mm3 (1.96-9.15); SEG NEUTROPHILS PERCENT MAN 49 % (41-73); TOTAL CELLS COUNTED 100
[2023-05-22 15:25] VITALS: BP 109/63
--- NOTE | 2023-05-22 18:12 | NUR ---
SHIFT SUMMARY NO ACUTE CHANGES THIS SHIFT. PATIENT IS ALERT, ORIENTED AND ABLE TO MAKE HER NEEDS KNOWN. PER HOSPITALIST PATIENT IS MEDICALLY STABLE FOR DISCHARGE TO SNF. DUE TO WEEKEND, UNABLE TO DISCHARGE. PATIENT IS AGREEABLE TO PLAN FOR SNF. ORDER FOR NO IV AND NO TELE RECEIVED. PATIENT IS A ONE PERSON ASSIST TO THE CHAIR AND BEDSIDE COMMODE. ENCOURAGED OOB ACTIVITY. ALSO RECEIVED ORDER TO DC HEPARIN INJECTIONS AND APPLY SCD'S AT HS. PATIENT IS AGREEABLE TO THE PLAN. BED LOW AND LOCKED, CALL LIGHT WITHIN REACH. WILL CONT TO MONITOR AND REPORT TO NOC RN.
[2023-05-22 19:49] VITALS: BP 111/66
[2023-05-23 04:55] VITALS: BP 129/68
--- NOTE | 2023-05-23 05:13 | NUR ---
SHIFT SUMMARY 77 YR F ADMITTED ON 05/22/23 FOR ARF. FULL CODE. NO ACUTE CHANGES THIS SHIFT. PT C/O LOWER BACK PAIN AND IS BEING GIVEN TYLENOL PER EMAR. SHE HAS SLEPT FOR MOST OF THIS SHIFT. SHE USES CALL LIGHT APPROPRIATELY AND WILL CALL FOR ASSISTANCE WHEN NEEDED.
[2023-05-23 05:25] LABS: Hematocrit 26.1 % (33.0-51.0); Hemoglobin 8.4 g/dL (11.5-16.0); Mean Corpuscular HGB 30.5 pg (26.0-34.0); Mean Corpuscular HGB Conc 32.2 g/dL (31.5-36.5); Mean Corpuscular Volume 95 fL (80-100); Platelet Count 71 K/mm3 (150-400); RDW Coefficient Variation 16.7 % (11.7-14.2); Red Blood Cell Count 2.75 M/mm3 (3.80-5.20); White Blood Cell Count 13.36 K/mm3 (4.00-11.30)
[2023-05-23 05:27] LABS: Bun/Creatinine Ratio 23.5 (12.0-20.0); Calcium, Blood 8.5 mg/dL (8.5-10.1); Creatinine, Blood 0.81 mg/dL (0.40-1.00); Potassium, Blood 4.1 mmol/L (3.5-5.5)
[2023-05-23 05:35] LABS: Mean Platelet Volume 13.6 fL (9.1-12.4)
[2023-05-23 05:43] LABS: BASOPHILS PERCENT MAN 0 % (0-2); EOSINOPHILS PERCENT MAN 0 % (0-6); LYMPHOCYTES PERCENT MAN 6 % (21-46); MONOCYTES ABSOLUTE MAN 6.54 K/mm3 (0.16-1.47); MONOCYTES PERCENT MAN 49 % (4-13); NEUTROPHILS ABSOLUTE MAN 6.01 K/mm3 (1.96-9.15); SEG NEUTROPHILS PERCENT MAN 45 % (41-73); TOTAL CELLS COUNTED 100
[2023-05-23 07:39] VITALS: BP 121/70
[2023-05-23 15:47] VITALS: BP 106/73
--- NOTE | 2023-05-23 18:06 | NUR ---
SHIFT SUMMARY PT AxOx4. PLEASANT AND COOPERATIVE WITH CARE. PT WAS MEDICATED FOR PAIN x2 WITH REPORTED RELIEF. PT ALSO UTILIZED A HEATING PAD T/O THE DAY. PT HAD VISITOR IN THE ROOM TODAY. PT REPORTS GENERAL WEAKNESS AND HAS NEEDED 1 ASSIST AND FWW FOR TRANSFERS. SHE HAS BEEN CONTINENT ALL DAY, USING THE BED SIDE COMMODE AND SITTING UP IN THE RECLINER FOR ALL MEALS. PT IS CURRENTLY RESTING IN BED. CALL LIGHT IN REACH. DENIES ANY NEEDS AT THIS TIME. CURRENT PLAN IS TO DC TO SNF.
[2023-05-23 19:52] VITALS: BP 128/67
[2023-05-24 02:22] VITALS: BP 138/66
[2023-05-24 05:38] LABS: Bun/Creatinine Ratio 20.6 (12.0-20.0); Calcium, Blood 8.5 mg/dL (8.5-10.1); Creatinine, Blood 0.78 mg/dL (0.40-1.00); Potassium, Blood 3.9 mmol/L (3.5-5.5)
[2023-05-24 07:22] VITALS: BP 130/65
--- NOTE | 2023-05-24 07:54 | NUR ---
SHIFT SUMMARY A/OX4. ROOM AIR. 1 PERSON TO BSC. PT USES WHEELCHAIR AT HOME. OR WALKER AT HOME FOR SHORT DISTNACES. CHRONIC BACK PAIN, STATED RELEIF WITH PRN TYLENOL GIVEN X1. HEATING PAD AVAILABLE. SCD'S IN PLACE. ABLE TO MAKE NEEDS KNOWN. CALL LIGHT IN REACH.
--- NOTE | 2023-05-24 08:19 | NUR ---
pt laying in bed awake a/ox4, pleasant and cooperative with care, follows commands well, reports some back pain, understands the plan of care, and will be going to rehab, lungs are clear in [place], dim in bases, on r/a, resp even and unlabored, no cough noted, hrr, murmur, no edema noted, ppp+2, cap refill <3sec, vs stable, afebrile, btx4, reports voiding and bm without diff, skin frail with some bruising mepilex to coccyx for protection, david eddy, needs assist to stand, then does pretty well once up, got her up for breakfast to chair, david, call light in reach.
[2023-05-24 14:55] VITALS: BP 110/65
--- NOTE | 2023-05-24 18:07 | NUR ---
no acute changes this shift. pt up to chair for a few hrs, up to bsc several times, medicated for pain once, daughter in to visit, no further changes or needs. call light in reach.
[2023-05-24 19:42] VITALS: BP 104/74
[2023-05-25 04:01] VITALS: BP 110/87
[2023-05-25 07:31] VITALS: BP 131/66
[2023-05-25 07:36] LABS: Hematocrit 25.1 % (33.0-51.0); Hemoglobin 8.1 g/dL (11.5-16.0); Mean Corpuscular HGB 30.1 pg (26.0-34.0); Mean Corpuscular HGB Conc 32.3 g/dL (31.5-36.5); Mean Corpuscular Volume 93 fL (80-100); Platelet Count 88 K/mm3 (150-400); RDW Coefficient Variation 16.6 % (11.7-14.2); RDW Standard Deviation 56.5 fL (35.1-46.3); Red Blood Cell Count 2.69 M/mm3 (3.80-5.20)
[2023-05-25 07:54] LABS: Albumin, Blood 2.8 g/dL (3.4-5.0); Albumin/Globulin Ratio 0.9 (0.8-1.8); Bilirubin, Total 0.3 mg/dL (0.1-1.0); Bun/Creatinine Ratio 16.2 (12.0-20.0); Calcium, Blood 8.6 mg/dL (8.5-10.1); Creatinine, Blood 0.86 mg/dL (0.40-1.00); Potassium, Blood 3.9 mmol/L (3.5-5.5); Total Protein, Blood 5.8 g/dL (6.4-8.2)
[2023-05-25 07:58] LABS: BASOPHILS PERCENT MAN 0 % (0-2); EOSINOPHILS PERCENT MAN 1 % (0-6); LYMPHOCYTES PERCENT MAN 6 % (21-46); MONOCYTES PERCENT MAN 45 % (4-13); SEG NEUTROPHILS PERCENT MAN 48 % (41-73); TOTAL CELLS COUNTED 100
[2023-05-25 08:03] LABS: EOSINOPHILS ABSOLUTE MAN 0.18 K/mm3 (0.00-0.68); LYMPHOCYTES ABSOLUTE MAN 1.08 K/mm3 (0.84-5.20); NEUTROPHILS ABSOLUTE MAN 8.64 K/mm3 (1.96-9.15)
--- NOTE | 2023-05-25 08:15 | NUR ---
SHIFT SUMMARY A/OX4. ROOM AIR. CHRONIC BACK PAIN, TYLENOL GIVEN X2 WITH REPORTED RELIEF. UP 1 PERSON TO BSC. BASELINE WHEELCHAIR OR WALKER FOR SHORT DISTANCES. ABLE TO MAKE NEEDS KNOWN. CALL LIGHT IN REACH. CALL APPROPRIATELY, NONSKID SOCKS ON. SHIFT OTHERWISE UNREMARKABLE
[2023-05-25 10:33] LABS: SARS-Cov-2 (COVID-19) PCR, MMC NEGATIVE (NEGATIVE)
[2023-05-25 15:00] VITALS: BP 119/76
[2023-05-25] MEDS ORDERED: VISBIOME 112.51 EACH PO (15:25)
[2023-05-25] MEDS ORDERED: Acetaminophen325 M1 PO (15:28)
--- NOTE | 2023-05-25 17:21 | NUR ---
SHIFT SUMMARY AND DISCHARGE PATIENT ALERT AND ABLE TO MAKE NEEDS KNOWN. PATIENT ABLE TO TRANSFER [place] [facility] [place]IM[place]IST[place]. PATIENT HAS KYPHOSIS AND BACK PAIN WITH MOVEMENT. PATIENT ALSO HAS A CYST BEHIND KNEE THAT CAUSES PAIN. PATIENT TO TRANSFER TO [facility]. FAMILY SUPPORTIVE OF PATIENT AND PRESENT AT TRANSFER. BELONGINGS SENT WITH PATIENT. PATIENT TRANSPORTED VIA PERSONAL WHEELCHAIR BY TRANSPORT AGENCY. REPORT CALLED TO REHAB.
== END 2023-05-25 16:44 | DRG 683 ==
LOC: ER 10:48 → PCU 10:49 → MEDS 05-21 10:56
PROVIDERS: Emergency Medicine; Family Medicine; Student in an Organized Health Care Education/Training Program; ADMIT Hospitalist
DX: N17.9 Acute kidney failure, unspecified (principal); C90.00 Multiple myeloma not having achieved remission; I50.22 Chronic systolic (congestive) heart failure; E44.0 Moderate protein-calorie malnutrition; Z68.1 Body mass index [BMI] 19.9 or less, adult; D84.821 Immunodeficiency due to drugs; I11.0 Hypertensive heart disease with heart failure; E86.1 Hypovolemia; D63.8 Anemia in other chronic diseases classified elsewhere; I95.89 Other hypotension; M81.0 Age-related osteoporosis without current pathological fracture; K21.9 Gastro-esophageal reflux disease without esophagitis; D72.829 Elevated white blood cell count, unspecified; D69.6 Thrombocytopenia, unspecified; Z11.52 Encounter for screening for COVID-19; Z88.8 Allergy status to other drugs, medicaments and biological substances; Z88.5 Allergy status to narcotic agent; Z85.3 Personal history of malignant neoplasm of breast; Z90.49 Acquired absence of other specified parts of digestive tract; Z90.11 Acquired absence of right breast and nipple; Z90.710 Acquired absence of both cervix and uterus; Z90.722 Acquired absence of ovaries, bilateral; Z90.79 Acquired absence of other genital organ(s); Z87.891 Personal history of nicotine dependence
CPT/HCPCS: 0202U; 36415; 71045; 80048; 80053; 81003; 82330; 82533; 82803; 83605; 83690; 83735; 83880; 84443; 84484; 85014; 85018; 85025; 86850; 86870; 86880; 86900; 86901; 87040; 93005; 93010; 96361; 96374; 97110-CQ; 97162; 97530; 99285-25; A9270; J0612; J1644; J2405; J7030; J7120; U0002

== ENCOUNTER → 2023-06-15 | Outpatient (CLI) | payer OTHER ==
[~2023-06-15] MED LIST changes: +ALPHA LIPOIC A600 MG PO; +Acetaminophen325 M1 PO; +BACTRIM DS TAB1 EAC6 PO; +CEPH500 PO; +DECADRON4 M1 PO; +QUET25 PO; +Revlimid10 MG PO; +VISBIOME 112.51 EACH PO
[2023-06-16 08:38] LABS: Albumin, Blood 3.8 g/dL (3.4-5.0); Albumin/Globulin Ratio 1.3 (0.8-1.8); Bilirubin, Total 0.2 mg/dL (0.1-1.0); Bun/Creatinine Ratio 22.5 (12.0-20.0); Calcium, Blood 9.2 mg/dL (8.5-10.1); Creatinine, Blood 1.02 mg/dL (0.40-1.00); Globulin, Blood 2.9 g/dL (2.2-4.0); Phosphorus, Blood 3.5 mg/dL (2.5-4.9); Potassium, Blood 5.2 mmol/L (3.5-5.5); Total Protein, Blood 6.7 g/dL (6.4-8.2)
[2023-06-18 13:01] LABS: BETA-2-MICROGLOBULIN,SER/PLAS 5.7 mg/L (<=3.0)
[2023-06-19 23:23] LABS: ALBUMIN 3.92 g/dL (3.75-5.01); ALPHA 1 GLOBULIN 0.31 g/dL (0.19-0.46); ALPHA 2 GLOBULIN 0.69 g/dL (0.48-1.05); BETA GLOBULIN 0.56 g/dL (0.48-1.10); GAMMA 1.22 g/dL (0.62-1.51); IMMUNOFIXATION IFE Done; IMMUNOGLOBULIN A 78 mg/dL (68-408); IMMUNOGLOBULIN G 1241 mg/dL (768-1632); IMMUNOGLOBULIN M 52 mg/dL (35-263); KAPPA QNT FREE LIGHT CHAINS 96.68 mg/L (3.30-19.40); KAPPA/LAMBDA FLC RATIO 12.51 (0.26-1.65); LAMBDA QNT FREE LIGHT CHAINS 7.73 mg/L (5.71-26.30); MONOCLONAL PROTEIN 0.92 g/dL; TOTAL PROTEIN, SERUM 6.7 g/dL (6.3-8.2)
== END ==
LOC: LAB SHORT 12:00 → LAB 12:00
PROVIDERS: Internal Medicine Hematology & Oncology
DX: C90.00 Multiple myeloma not having achieved remission (principal)
CPT/HCPCS: 80053; 82232; 82784; 83521; 84100; 84155; 84165; 86334

== ENCOUNTER → 2023-06-16 | Outpatient (CLI) | payer OTHER ==
[2023-06-17 10:17] LABS: C DIFFICILE DNA NEGATIVE (Negative)
== END ==
LOC: LAB 13:29 → LAB SHORT 13:29
PROVIDERS: Internal Medicine Hematology & Oncology
DX: R19.7 Diarrhea, unspecified (principal)
CPT/HCPCS: 87493

== ENCOUNTER → 2023-06-22 | Outpatient (CLI) | payer OTHER ==
[2023-06-22 19:26] LABS: BASOPHILS ABSOLUTE AUTO 0.02 K/mm3 (0.00-0.23); BASOPHILS PERCENT AUTO 0 % (0-2); EOSINOPHILS ABSOLUTE AUTO 0.02 K/mm3 (0.00-0.68); EOSINOPHILS PERCENT AUTO 0 % (0-6); Hematocrit 31.4 % (33.0-51.0); Hemoglobin 9.6 g/dL (11.5-16.0); IMMATURE GRAN ABSOLUTE AUTO 0.17 K/mm3 (0.00-0.10); IMMATURE GRAN PERCENT AUTO 1 % (0-1); LYMPHOCYTES ABSOLUTE AUTO 0.67 K/mm3 (0.84-5.20); LYMPHOCYTES PERCENT AUTO 4 % (21-46); MONOCYTES PERCENT AUTO 4 % (4-13); Mean Corpuscular HGB 30.4 pg (26.0-34.0); Mean Corpuscular HGB Conc 30.6 g/dL (31.5-36.5); Mean Corpuscular Volume 99 fL (80-100); Mean Platelet Volume 12.5 fL (9.1-12.4); NEUTROPHILS ABSOLUTE AUTO 15.24 K/mm3 (1.96-9.15); NEUTROPHILS PERCENT AUTO 91 % (41-73); Platelet Count 88 K/mm3 (150-400); RDW Coefficient Variation 15.3 % (11.7-14.2); RDW Standard Deviation 55.9 fL (35.1-46.3); Red Blood Cell Count 3.16 M/mm3 (3.80-5.20); White Blood Cell Count 16.82 K/mm3 (4.00-11.30)
[2023-06-22 20:32] LABS: Albumin, Blood 3.9 g/dL (3.4-5.0); Albumin/Globulin Ratio 1.3 (0.8-1.8); Bilirubin, Total 0.2 mg/dL (0.1-1.0); Bun/Creatinine Ratio 24.2 (12.0-20.0); Calcium, Blood 9.1 mg/dL (8.5-10.1); Creatinine, Blood 0.99 mg/dL (0.40-1.00); Globulin, Blood 2.9 g/dL (2.2-4.0); Phosphorus, Blood 3.9 mg/dL (2.5-4.9); Potassium, Blood 4.6 mmol/L (3.5-5.5); Total Protein, Blood 6.8 g/dL (6.4-8.2)
[2023-06-26 02:42] LABS: BETA-2-MICROGLOBULIN,SER/PLAS 4.6 mg/L (<=3.0)
[2023-06-28 07:40] LABS: ALBUMIN 4.43 g/dL (3.75-5.01); ALPHA 1 GLOBULIN 0.32 g/dL (0.19-0.46); BETA GLOBULIN 0.59 g/dL (0.48-1.10); GAMMA 1.26 g/dL (0.62-1.51); IMMUNOFIXATION IFE Done; IMMUNOGLOBULIN A 76 mg/dL (68-408); IMMUNOGLOBULIN G 1161 mg/dL (768-1632); IMMUNOGLOBULIN M 44 mg/dL (35-263); KAPPA QNT FREE LIGHT CHAINS 84.51 mg/L (3.30-19.40); KAPPA/LAMBDA FLC RATIO 12.02 (0.26-1.65); LAMBDA QNT FREE LIGHT CHAINS 7.03 mg/L (5.71-26.30); MONOCLONAL PROTEIN 0.98 g/dL; TOTAL PROTEIN, SERUM 7.3 g/dL (6.3-8.2)
== END ==
LOC: LAB SHORT 18:02 → LAB 18:02
PROVIDERS: Internal Medicine Hematology & Oncology
DX: C90.00 Multiple myeloma not having achieved remission (principal)
CPT/HCPCS: 80053; 82232; 82784; 83521; 84100; 84155; 84165; 85025; 86334

== ENCOUNTER 2023-06-23 21:01 | Emergency (ER) | payer OTHER ==
[~2023-06-23] VITALS: Ht 152.4 cm; Wt 42.6 kg
[~2023-06-23 21:01] MED LIST changes: -CEPH500 PO
[2023-06-23 21:58] LABS: BASOPHILS ABSOLUTE AUTO 0.03 K/mm3 (0.00-0.23); BASOPHILS PERCENT AUTO 0 % (0-2); EOSINOPHILS ABSOLUTE AUTO 0.01 K/mm3 (0.00-0.68); EOSINOPHILS PERCENT AUTO 0 % (0-6); Hematocrit 27.5 % (33.0-51.0); Hemoglobin 8.8 g/dL (11.5-16.0); IMMATURE GRAN ABSOLUTE AUTO 0.15 K/mm3 (0.00-0.10); IMMATURE GRAN PERCENT AUTO 1 % (0-1); LYMPHOCYTES ABSOLUTE AUTO 1.64 K/mm3 (0.84-5.20); LYMPHOCYTES PERCENT AUTO 7 % (21-46); MONOCYTES ABSOLUTE AUTO 4.55 K/mm3 (0.16-1.47); MONOCYTES PERCENT AUTO 19 % (4-13); Mean Corpuscular HGB 30.7 pg (26.0-34.0); Mean Corpuscular Volume 96 fL (80-100); Mean Platelet Volume 11.6 fL (9.1-12.4); NEUTROPHILS ABSOLUTE AUTO 18.13 K/mm3 (1.96-9.15); NEUTROPHILS PERCENT AUTO 74 % (41-73); Platelet Count 80 K/mm3 (150-400); RDW Coefficient Variation 15.3 % (11.7-14.2); Red Blood Cell Count 2.87 M/mm3 (3.80-5.20); White Blood Cell Count 24.51 K/mm3 (4.00-11.30)
[2023-06-23 22:16] LABS: Albumin, Blood 3.7 g/dL (3.4-5.0); Albumin/Globulin Ratio 1.2 (0.8-1.8); Bilirubin, Total 0.2 mg/dL (0.1-1.0); Bun/Creatinine Ratio 20.3 (12.0-20.0); Calcium, Blood 8.9 mg/dL (8.5-10.1); Creatinine, Blood 1.48 mg/dL (0.40-1.00); Globulin, Blood 3.2 g/dL (2.2-4.0); Potassium, Blood 4.5 mmol/L (3.5-5.5); Total Protein, Blood 6.9 g/dL (6.4-8.2)
[2023-06-23 23:40] LABS: Source, Urine Clean Catch
[2023-06-23 23:44] LABS: Bilirubin, Urine Neg (Neg); Blood, Urine 3+ (Neg); Glucose Qualitative, Urine Neg (Neg); Ketones, Urine Neg (Neg); Leukocyte Esterase, Urine 1+ (Neg); Nitrite, Urine Neg (Neg); Protein, Urine 1+ (Neg); Specific Gravity, Urine 1.015 (1.003-1.022); Urobilinogen, Urine NORM (Normal)
[2023-06-24 00:15] LABS: Appearance, Urine Hazy (Clear); Color, Urine Yellow (P-Yellow)
[2023-06-24 00:16] LABS: Bacteria Mod /hpf; Calcium Oxalate Crystals Few /hpf; Red Blood Cells, Urine 0-2 /hpf (0-2); Squamous Epithelial Cells Few /hpf (Few); White Blood Cells, Urine 0-2 /hpf (0-5)
[2023-06-24 00:17] LABS: Influenza A, PCR NEGATIVE (NEGATIVE); Influenza B, PCR NEGATIVE (NEGATIVE); Resp Syncytial Virus, PCR NEGATIVE (NEGATIVE); SARS-Cov-2 (COVID-19) PCR, MMC NEGATIVE (NEGATIVE)
[2023-06-24] MEDS ORDERED: CEPH500 PO (02:13)
[2023-06-24 02:21] VITALS: BP 149/78
== END 2023-06-24 02:30 | disposition home or self-care (01) ==
LOC: ER 21:01
PROVIDERS: Physician Assistant; Student in an Organized Health Care Education/Training Program
DX: N39.0 Urinary tract infection, site not specified (principal); R06.02 Shortness of breath; Z20.822 Contact with and (suspected) exposure to COVID-19; R77.8 Other specified abnormalities of plasma proteins; R79.89 Other specified abnormal findings of blood chemistry; I11.0 Hypertensive heart disease with heart failure; I50.9 Heart failure, unspecified; C90.00 Multiple myeloma not having achieved remission; Z87.891 Personal history of nicotine dependence; Z79.899 Other long term (current) drug therapy; Z88.5 Allergy status to narcotic agent; Z88.8 Allergy status to other drugs, medicaments and biological substances; Z79.810 Long term (current) use of selective estrogen receptor modulators (SERMs)
CPT/HCPCS: 0241U; 51798; 71046; 80053; 81001; 83880; 84484; 85025; 87077; 87086; 87186; 93005; 93010; 96361; 96374; 99285-25; J0696; J7030

== ENCOUNTER → 2023-07-14 | Outpatient (CLI) | payer OTHER ==
[~2023-07-14] MED LIST changes: +CEPH500 PO; +CIPR500 PO; +ONDA4ODT MM
[2023-07-14 20:01] LABS: Albumin/Globulin Ratio 1.3 (0.8-1.8); Bilirubin, Total 0.2 mg/dL (0.1-1.0); Bun/Creatinine Ratio 33.8 (12.0-20.0); Calcium, Blood 9.5 mg/dL (8.5-10.1); Creatinine, Blood 0.68 mg/dL (0.40-1.00); Globulin, Blood 3.1 g/dL (2.2-4.0); Phosphorus, Blood 1.4 mg/dL (2.5-4.9); Potassium, Blood 3.8 mmol/L (3.5-5.5); Total Protein, Blood 7.1 g/dL (6.4-8.2)
[2023-07-16 22:14] LABS: ALBUMIN 4.31 g/dL (3.75-5.01); ALPHA 1 GLOBULIN 0.29 g/dL (0.19-0.46); ALPHA 2 GLOBULIN 0.62 g/dL (0.48-1.05); BETA GLOBULIN 0.57 g/dL (0.48-1.10); GAMMA 1.21 g/dL (0.62-1.51); IMMUNOFIXATION IFE Done; IMMUNOGLOBULIN A 91 mg/dL (68-408); IMMUNOGLOBULIN G 1323 mg/dL (768-1632); IMMUNOGLOBULIN M 49 mg/dL (35-263); KAPPA QNT FREE LIGHT CHAINS 53.73 mg/L (3.30-19.40); KAPPA/LAMBDA FLC RATIO 10.43 (0.26-1.65); LAMBDA QNT FREE LIGHT CHAINS 5.15 mg/L (5.71-26.30); MONOCLONAL PROTEIN 0.95 g/dL
== END | disposition home or self-care (01) ==
LOC: LAB 11:20 → LAB SHORT 11:20
PROVIDERS: Internal Medicine Hematology & Oncology
DX: C90.00 Multiple myeloma not having achieved remission (principal); R30.0 Dysuria
CPT/HCPCS: 80053; 83735; 84100

== ENCOUNTER 2023-07-15 14:53 | Emergency (ER) | payer OTHER ==
[~2023-07-15] VITALS: Ht 147.3 cm; Wt 47.6 kg
[~2023-07-15 14:53] MED LIST changes: -CIPR500 PO; -ONDA4ODT MM
[2023-07-15 16:06] LABS: BASOPHILS ABSOLUTE AUTO 0.01 K/mm3 (0.00-0.23); BASOPHILS PERCENT AUTO 0 % (0-2); EOSINOPHILS ABSOLUTE AUTO 0.01 K/mm3 (0.00-0.68); EOSINOPHILS PERCENT AUTO 0 % (0-6); Hematocrit 30.7 % (33.0-51.0); Hemoglobin 9.6 g/dL (11.5-16.0); IMMATURE GRAN ABSOLUTE AUTO 0.05 K/mm3 (0.00-0.10); IMMATURE GRAN PERCENT AUTO 1 % (0-1); LYMPHOCYTES ABSOLUTE AUTO 1.22 K/mm3 (0.84-5.20); LYMPHOCYTES PERCENT AUTO 12 % (21-46); MONOCYTES ABSOLUTE AUTO 3.64 K/mm3 (0.16-1.47); MONOCYTES PERCENT AUTO 35 % (4-13); Mean Corpuscular HGB 31.1 pg (26.0-34.0); Mean Corpuscular HGB Conc 31.3 g/dL (31.5-36.5); Mean Corpuscular Volume 99 fL (80-100); Mean Platelet Volume 11.6 fL (9.1-12.4); NEUTROPHILS ABSOLUTE AUTO 5.63 K/mm3 (1.96-9.15); NEUTROPHILS PERCENT AUTO 53 % (41-73); Platelet Count 99 K/mm3 (150-400); RDW Coefficient Variation 14.6 % (11.7-14.2); RDW Standard Deviation 53.5 fL (35.1-46.3); Red Blood Cell Count 3.09 M/mm3 (3.80-5.20); White Blood Cell Count 10.56 K/mm3 (4.00-11.30)
[2023-07-15 16:16] LABS: Albumin, Blood 3.7 g/dL (3.4-5.0); Albumin/Globulin Ratio 1.2 (0.8-1.8); Bilirubin, Total 0.3 mg/dL (0.1-1.0); Bun/Creatinine Ratio 32.9 (12.0-20.0); Calcium, Blood 9.4 mg/dL (8.5-10.1); Creatinine, Blood 0.73 mg/dL (0.40-1.00); Globulin, Blood 3.2 g/dL (2.2-4.0); Potassium, Blood 4.4 mmol/L (3.5-5.5); Total Protein, Blood 6.9 g/dL (6.4-8.2)
[2023-07-15 19:47] LABS: Source, Urine Clean Catch
[2023-07-15 19:50] LABS: Appearance, Urine Clear (Clear); Bilirubin, Urine Neg (Neg); Blood, Urine 2+ (Neg); Color, Urine Yellow (P-Yellow); Glucose Qualitative, Urine Neg (Neg); Ketones, Urine Neg (Neg); Leukocyte Esterase, Urine Neg (Neg); Nitrite, Urine Neg (Neg); Protein, Urine Neg (Neg); Specific Gravity, Urine 1.015 (1.003-1.022); Urobilinogen, Urine NORM (Normal)
[2023-07-15 20:32] LABS: Bacteria Few /hpf; Squamous Epithelial Cells Few /hpf (Few); White Blood Cells, Urine 0-2 /hpf (0-5)
[2023-07-15 21:11] LABS: Influenza A, PCR NEGATIVE (NEGATIVE); Influenza B, PCR NEGATIVE (NEGATIVE); Resp Syncytial Virus, PCR NEGATIVE (NEGATIVE); SARS-Cov-2 (COVID-19) PCR, MMC NEGATIVE (NEGATIVE)
[2023-07-15] MEDS ORDERED: ONDA4ODT MM (22:05)
[2023-07-15] MEDS ORDERED: CIPR500 PO (22:05)
[2023-07-15 22:10] VITALS: BP 139/87
== END 2023-07-15 22:17 | disposition home or self-care (01) ==
LOC: ER 14:53
PROVIDERS: Physician Assistant; Student in an Organized Health Care Education/Training Program
DX: R50.9 Fever, unspecified (principal); R34 Anuria and oliguria; M54.9 Dorsalgia, unspecified; R10.84 Generalized abdominal pain; C90.00 Multiple myeloma not having achieved remission; I10 Essential (primary) hypertension; I50.9 Heart failure, unspecified; Z85.3 Personal history of malignant neoplasm of breast; Z87.891 Personal history of nicotine dependence; Z88.8 Allergy status to other drugs, medicaments and biological substances; Z88.5 Allergy status to narcotic agent; Z79.899 Other long term (current) drug therapy
CPT/HCPCS: 0241U; 51701; 51798; 76770; 80053; 81001; 85025; 96360; 99284-25; A9270; J7030

== ENCOUNTER → 2023-08-03 | Outpatient (CLI) | payer OTHER ==
[~2023-08-03] MED LIST changes: +CIPR500 PO; +ONDA4ODT MM
[2023-08-05 07:13] LABS: A/G RATIO 1.8 (1.2-2.2); ALKALINE PHOSPHATASE, S 61 IU/L (44-121); ALT (SGPT) 14 IU/L (0-32); AST (SGOT) 14 IU/L (0-40); BILIRUBIN, TOTAL <0.2 mg/dL (0.0-1.2); BUN 15 mg/dL (8-27); BUN/CREATININE RATIO 20 (12-28); CALCIUM, SERUM 9.7 mg/dL (8.7-10.3); CARBON DIOXIDE, TOTAL 28 mmol/L (20-29); CHLORIDE, SERUM 103 mmol/L (96-106); CREATININE, SERUM 0.75 mg/dL (0.57-1.00); GLOBULIN, TOTAL 2.4 g/dL (1.5-4.5); GLUCOSE, SERUM 149 mg/dL (70-99); POTASSIUM, SERUM 4.4 mmol/L (3.5-5.2); PROTEIN, TOTAL, SERUM 6.8 g/dL (6.0-8.5); SODIUM, SERUM 140 mmol/L (134-144)
[2023-08-07 10:48] LABS: ALBUMIN 4.22 g/dL (3.75-5.01); ALPHA 1 GLOBULIN 0.29 g/dL (0.19-0.46); ALPHA 2 GLOBULIN 0.66 g/dL (0.48-1.05); GAMMA 1.23 g/dL (0.62-1.51); IMMUNOFIXATION IFE Done; IMMUNOGLOBULIN A 92 mg/dL (68-408); IMMUNOGLOBULIN G 1245 mg/dL (768-1632); IMMUNOGLOBULIN M 49 mg/dL (35-263); KAPPA/LAMBDA FLC RATIO 15.18 (0.26-1.65); LAMBDA QNT FREE LIGHT CHAINS 6.35 mg/L (5.71-26.30); MONOCLONAL PROTEIN 0.93 g/dL
== END ==
LOC: LAB SHORT 11:13 → LAB 11:13
PROVIDERS: Internal Medicine Hematology & Oncology
DX: C90.00 Multiple myeloma not having achieved remission (principal)
CPT/HCPCS: 80053; 80069; 82784; 83521; 84155; 84165; 86334

== ENCOUNTER → 2023-09-07 | Outpatient (CLI) | payer OTHER ==
[2023-09-07 15:41] LABS: BASOPHILS ABSOLUTE AUTO 0.01 K/mm3 (0.00-0.23); BASOPHILS PERCENT AUTO 0 % (0-2); EOSINOPHILS PERCENT AUTO 0 % (0-6); Hematocrit 39.2 % (33.0-51.0); Hemoglobin 12.3 g/dL (11.5-16.0); IMMATURE GRAN ABSOLUTE AUTO 0.13 K/mm3 (0.00-0.10); IMMATURE GRAN PERCENT AUTO 1 % (0-1); LYMPHOCYTES ABSOLUTE AUTO 0.58 K/mm3 (0.84-5.20); LYMPHOCYTES PERCENT AUTO 5 % (21-46); MONOCYTES ABSOLUTE AUTO 0.65 K/mm3 (0.16-1.47); MONOCYTES PERCENT AUTO 5 % (4-13); Mean Corpuscular HGB Conc 31.4 g/dL (31.5-36.5); Mean Corpuscular Volume 96 fL (80-100); Mean Platelet Volume 11.9 fL (9.1-12.4); NEUTROPHILS ABSOLUTE AUTO 10.94 K/mm3 (1.96-9.15); NEUTROPHILS PERCENT AUTO 89 % (41-73); Platelet Count 119 K/mm3 (150-400); RDW Coefficient Variation 13.7 % (11.7-14.2); RDW Standard Deviation 47.9 fL (35.1-46.3); White Blood Cell Count 12.31 K/mm3 (4.00-11.30)
[2023-09-07 15:52] LABS: Albumin, Blood 3.7 g/dL (3.4-5.0); Bilirubin, Total 0.3 mg/dL (0.1-1.0); Bun/Creatinine Ratio 29.9 (12.0-20.0); Calcium, Blood 9.7 mg/dL (8.5-10.1); Creatinine, Blood 0.67 mg/dL (0.40-1.00); Globulin, Blood 3.6 g/dL (2.2-4.0); Phosphorus, Blood 2.8 mg/dL (2.5-4.9); Potassium, Blood 4.4 mmol/L (3.5-5.5); Total Protein, Blood 7.3 g/dL (6.4-8.2)
[2023-09-09 23:23] LABS: ALPHA 1 GLOBULIN 0.29 g/dL (0.19-0.46); ALPHA 2 GLOBULIN 0.66 g/dL (0.48-1.05); BETA GLOBULIN 0.59 g/dL (0.48-1.10); GAMMA 1.26 g/dL (0.62-1.51); IMMUNOFIXATION IFE Done; IMMUNOGLOBULIN A 97 mg/dL (68-408); IMMUNOGLOBULIN G 1331 mg/dL (768-1632); IMMUNOGLOBULIN M 51 mg/dL (35-263); KAPPA QNT FREE LIGHT CHAINS 60.56 mg/L (3.30-19.40); KAPPA/LAMBDA FLC RATIO 10.99 (0.26-1.65); LAMBDA QNT FREE LIGHT CHAINS 5.51 mg/L (5.71-26.30); MONOCLONAL PROTEIN 0.99 g/dL (<=0.00); TOTAL PROTEIN, SERUM 6.8 g/dL (6.3-8.2)
== END | disposition home or self-care (01) ==
LOC: LAB SHORT 12:44 → LAB 12:44 → LAB FUT 03-30 14:15
PROVIDERS: Internal Medicine Hematology & Oncology
DX: C90.00 Multiple myeloma not having achieved remission (principal); R31.29 Other microscopic hematuria
CPT/HCPCS: 36415; 80053; 82784; 83521; 84100; 84155; 84165; 85025; 86334

== ENCOUNTER → 2023-11-23 | Outpatient (CLI) | payer OTHER | END | disposition home or self-care (01) | LOC: LAB 16:04 → LAB SHORT 16:04 | DX: C90.00 Multiple myeloma not having achieved remission (principal) ==

== ENCOUNTER → 2024-02-07 | Outpatient (CLI) | payer OTHER ==
[2024-02-09 18:42] LABS: FREE URINE LAMBDA LIGHT CHAIN 13.74 mg/L (0.00-3.79); HOURS COLLECTED Random hr; TOTAL VOLUME Random mL
== END | disposition home or self-care (01) ==
LOC: LAB 15:02 → LAB SHORT 15:02 → LAB FUT 02-01 16:05
PROVIDERS: Internal Medicine Hematology & Oncology
DX: C90.00 Multiple myeloma not having achieved remission (principal)
CPT/HCPCS: 83521; 84156

== ENCOUNTER → 2024-04-11 | Outpatient (CLI) | payer OTHER ==
[~2024-04-11] MED LIST changes: +GABA100 PO; +IBUP400 PO; +LENALIDOMIDE PO; +LIDO700A20 TOP; +METOPROLOL SUCC25 MG PO; +SULTRIDS PO
[2024-04-12 11:44] LABS: BASOPHILS ABSOLUTE AUTO 0.07 K/mm3 (0.00-0.23); BASOPHILS PERCENT AUTO 1 % (0-2); EOSINOPHILS ABSOLUTE AUTO 0.07 K/mm3 (0.00-0.68); EOSINOPHILS PERCENT AUTO 1 % (0-6); Hematocrit 40.1 % (33.0-51.0); IMMATURE GRAN ABSOLUTE AUTO 0.09 K/mm3 (0.00-0.10); IMMATURE GRAN PERCENT AUTO 1 % (0-1); LYMPHOCYTES ABSOLUTE AUTO 0.92 K/mm3 (0.84-5.20); LYMPHOCYTES PERCENT AUTO 8 % (21-46); MONOCYTES ABSOLUTE AUTO 1.22 K/mm3 (0.16-1.47); MONOCYTES PERCENT AUTO 10 % (4-13); Mean Corpuscular HGB 29.5 pg (26.0-34.0); Mean Corpuscular HGB Conc 29.9 g/dL (31.5-36.5); Mean Corpuscular Volume 99 fL (80-100); NEUTROPHILS ABSOLUTE AUTO 9.57 K/mm3 (1.96-9.15); NEUTROPHILS PERCENT AUTO 80 % (41-73); Platelet Count 165 K/mm3 (150-400); RDW Coefficient Variation 13.6 % (11.7-14.2); RDW Standard Deviation 48.9 fL (35.1-46.3); Red Blood Cell Count 4.07 M/mm3 (3.80-5.20); White Blood Cell Count 11.94 K/mm3 (4.00-11.30)
[2024-04-12 11:50] LABS: Mean Platelet Volume 13.2 fL (9.1-12.4)
== END ==
LOC: LAB 11:00 → LAB SHORT 11:00
PROVIDERS: Internal Medicine Hematology & Oncology
DX: C90.00 Multiple myeloma not having achieved remission (principal)
CPT/HCPCS: 85025

== ENCOUNTER 2024-04-18 21:43 | Inpatient (IN) | payer OTHER ==
[~2024-04-18] VITALS: Ht 152.4 cm; Wt 45.8 kg
[~2024-04-18 21:43] MED LIST changes: -ALLO300; +ASCO500 PO; -GABA100 PO; -LENALIDOMIDE PO; -METOPROLOL SUCC25 MG PO; -PROLIA60 MG/1 ML; -SULTRIDS PO; -Vitamin C100 M1 PO
[2024-04-18 22:12] LABS: BASOPHILS ABSOLUTE AUTO 0.03 K/mm3 (0.00-0.23); BASOPHILS PERCENT AUTO 0 % (0-2); EOSINOPHILS PERCENT AUTO 0 % (0-6); Hematocrit 41.7 % (33.0-51.0); Hemoglobin 13.3 g/dL (11.5-16.0); IMMATURE GRAN PERCENT AUTO 1 % (0-1); LYMPHOCYTES ABSOLUTE AUTO 1.04 K/mm3 (0.84-5.20); LYMPHOCYTES PERCENT AUTO 7 % (21-46); MONOCYTES ABSOLUTE AUTO 2.07 K/mm3 (0.16-1.47); MONOCYTES PERCENT AUTO 14 % (4-13); Mean Corpuscular HGB 30.1 pg (26.0-34.0); Mean Corpuscular HGB Conc 31.9 g/dL (31.5-36.5); Mean Corpuscular Volume 94 fL (80-100); Mean Platelet Volume 12.3 fL (9.1-12.4); NEUTROPHILS ABSOLUTE AUTO 11.04 K/mm3 (1.96-9.15); NEUTROPHILS PERCENT AUTO 77 % (41-73); Platelet Count 152 K/mm3 (150-400); RDW Coefficient Variation 13.6 % (11.7-14.2); RDW Standard Deviation 47.1 fL (35.1-46.3); Red Blood Cell Count 4.42 M/mm3 (3.80-5.20); White Blood Cell Count 14.38 K/mm3 (4.00-11.30)
[2024-04-18 22:31] LABS: Albumin, Blood 3.9 g/dL (3.4-5.0); Albumin/Globulin Ratio 1.1 (0.8-1.8); Bilirubin, Total 0.5 mg/dL (0.1-1.0); Bun/Creatinine Ratio 26.6 (12.0-20.0); Calcium, Blood 9.1 mg/dL (8.5-10.1); Creatinine, Blood 0.79 mg/dL (0.40-1.00); Globulin, Blood 3.7 g/dL (2.2-4.0); Potassium, Blood 4.3 mmol/L (3.5-5.5); Total Protein, Blood 7.6 g/dL (6.4-8.2)
[2024-04-18] MEDS ORDERED: GABA100 PO (22:36)
[2024-04-18] MEDS ORDERED: METOPROLOL SUCC25 MG PO (22:36)
[2024-04-18] MEDS ORDERED: LENALIDOMIDE PO (22:37)
[2024-04-18] MEDS ORDERED: SULTRIDS PO (22:39)
[2024-04-19] MEDS ORDERED: Heparin Sodium,Porcine/0.5 NS 500 ML IV SCH (02:30)
[2024-04-19 02:51] LABS: Anti-Xa UFH, PHA Monitoring <0.10 IU/mL; International Normalized Ratio 1.09; Prothrombin Time Results 11.6 Sec (9.7-11.5)
[2024-04-19] MEDS ORDERED: Acetaminophen 500 MG Tab PO PRN (03:34)
[2024-04-19] MEDS ORDERED: Magnesium Hydroxide Conc 10 ML UDC PO PRN (03:40)
[2024-04-19] MEDS ORDERED: Bisacodyl 10 MG Supp PR PRN (03:40)
[2024-04-19] MEDS ORDERED: QUEtiapine Fumarate 25 MG Tab PO ONE (03:45)
[2024-04-19] MEDS ORDERED: FLU VACC TS2024-25(6MOS UP)/PF 45 MCG/0.5 ML SYRINGE IM ONE (03:45)
[2024-04-19] MEDS ORDERED: Metoprolol Succinate 25 MG TABCR PO ONE (03:45)
[2024-04-19] MEDS ORDERED: Acetaminophen 500 MG Tab PO ONE (03:45)
[2024-04-19] MEDS ORDERED: Gabapentin 100 MG Cap PO ONE (03:45)
[2024-04-19] MEDS ORDERED: Ondansetron 4 MG SoluTab MM PRN (03:50)
[2024-04-19] MEDS ORDERED: Melatonin 3 MG Tab PO PRN (03:55)
[2024-04-19 05:13] LABS: Hematocrit 34.8 % (33.0-51.0); Mean Corpuscular HGB 29.6 pg (26.0-34.0); Mean Corpuscular HGB Conc 31.6 g/dL (31.5-36.5); Mean Corpuscular Volume 94 fL (80-100); Mean Platelet Volume 12.3 fL (9.1-12.4); Platelet Count 132 K/mm3 (150-400); RDW Coefficient Variation 13.5 % (11.7-14.2); RDW Standard Deviation 46.3 fL (35.1-46.3); Red Blood Cell Count 3.72 M/mm3 (3.80-5.20); White Blood Cell Count 16.68 K/mm3 (4.00-11.30)
[2024-04-19 05:41] LABS: Albumin, Blood 3.2 g/dL (3.4-5.0); Anion Gap 9 mmol/L (3-11); Blood Urea Nitrogen 18 mg/dL (8-24); Bun/Creatinine Ratio 25.6 (12.0-20.0); CO2, Blood 26 mmol/L (21-32); Calcium, Blood 8.5 mg/dL (8.5-10.1); Chloride, Blood 112 mmol/L (98-108); Glomerular Filtration Rate 87 (60-); Glucose, Blood 94 mg/dL (70-99); Phosphorus, Blood 2.4 mg/dL (2.5-4.9); Potassium, Blood 4.1 mmol/L (3.5-5.5); Sodium, Blood 143 mmol/L (136-145)
[2024-04-19 05:55] LABS: BAND PERCENT MAN 4 % (0-8); BASOPHILS PERCENT MAN 0 % (0-2); EOSINOPHILS PERCENT MAN 0 % (0-6); LYMPHOCYTES % ATYPICAL MANUAL 1 % (0-0); LYMPHOCYTES PERCENT MAN 8 % (21-46); MONOCYTES PERCENT MAN 21 % (4-13); MYELOCYTE ABSOLUTE MAN 0.16 K/mm3 (0.00-0.00); MYELOCYTE PERCENT MAN 1 % (0-0); SEG NEUTROPHILS PERCENT MAN 65 % (41-73); TOTAL CELLS COUNTED 100
[2024-04-19] MEDS ORDERED: Omeprazole 20 MG CapCR PO SCH (06:00)
[2024-04-19] MEDS ORDERED: Atorvastatin 10 MG Tab PO SCH (09:00)
[2024-04-19] MEDS ORDERED: Lidocaine 4% 1 Patch TOP SCH (09:00)
[2024-04-19] MEDS ORDERED: Misc. Capsule PO SCH ×2 (09:00)
[2024-04-19] MEDS ORDERED: Metoprolol Succinate 25 MG TABCR PO SCH (09:00)
[2024-04-19] MEDS ORDERED: Cholecalciferol 1000 Unit Tablet (=25MCG) PO SCH (09:00)
[2024-04-19] MEDS ORDERED: Ascorbic Acid 250 MG Chew PO SCH (09:00)
[2024-04-19] MEDS ORDERED: Sennosides 8.6 MG Tab PO SCH (09:00)
[2024-04-19] MEDS ORDERED: Docusate Sodium 100 MG Cap PO SCH (09:00)
[2024-04-19] MEDS ORDERED: Dose Adjust by Pharmacy XX STA ×2 (09:30→16:40)
[2024-04-19] MEDS ORDERED: Ascorbic Acid 1000 MG Tab PO SCH (10:16)
[2024-04-19 11:19] LABS: BASOPHILS ABSOLUTE AUTO 0.05 K/mm3 (0.00-0.23); BASOPHILS PERCENT AUTO 0 % (0-2); EOSINOPHILS ABSOLUTE AUTO 0.14 K/mm3 (0.00-0.68); EOSINOPHILS PERCENT AUTO 1 % (0-6); Hematocrit 34.8 % (33.0-51.0); Hemoglobin 10.8 g/dL (11.5-16.0); IMMATURE GRAN ABSOLUTE AUTO 0.24 K/mm3 (0.00-0.10); IMMATURE GRAN PERCENT AUTO 1 % (0-1); LYMPHOCYTES ABSOLUTE AUTO 1.53 K/mm3 (0.84-5.20); LYMPHOCYTES PERCENT AUTO 8 % (21-46); MONOCYTES ABSOLUTE AUTO 7.35 K/mm3 (0.16-1.47); MONOCYTES PERCENT AUTO 39 % (4-13); Mean Corpuscular HGB 29.2 pg (26.0-34.0); Mean Corpuscular Volume 94 fL (80-100); Mean Platelet Volume 11.9 fL (9.1-12.4); NEUTROPHILS ABSOLUTE AUTO 9.65 K/mm3 (1.96-9.15); NEUTROPHILS PERCENT AUTO 51 % (41-73); Platelet Count 131 K/mm3 (150-400); RDW Coefficient Variation 13.6 % (11.7-14.2); RDW Standard Deviation 46.6 fL (35.1-46.3); White Blood Cell Count 18.96 K/mm3 (4.00-11.30)
[2024-04-19 15:00] VITALS: BP 127/62
[2024-04-19 15:54] LABS: Hematocrit 37.9 % (33.0-51.0); Hemoglobin 11.9 g/dL (11.5-16.0); Mean Corpuscular HGB 30.1 pg (26.0-34.0); Mean Corpuscular HGB Conc 31.4 g/dL (31.5-36.5); Mean Corpuscular Volume 96 fL (80-100); Platelet Count 135 K/mm3 (150-400); RDW Coefficient Variation 13.7 % (11.7-14.2); RDW Standard Deviation 48.8 fL (35.1-46.3); Red Blood Cell Count 3.95 M/mm3 (3.80-5.20)
--- NOTE | 2024-04-19 16:25 | NUR ---
ADMISSION NOTE: PATIENT ARRIVED TO THE UNIT VIA GURNEY ACCOMPANIED BY HER DAUGHTER BLANCA. PATIENT WAS ABLE TO SELF TRANSFER TO THE BED. HEPARIN DRIP INFUSING. PATIENT ORIENTED AND SETTLED IN ROOM, CALL LIGHT AND ICE WATER PROVIDED. ADMISSION COMPLETED. NO SIGNS OR SYMPTOMS OF DISTRESS DURING ADMIT.
[2024-04-19] MEDS ORDERED: Potassium Phosphate Dibasic 10 MM in Dextrose 5% 250 ML IV STA (16:59)
[2024-04-19] MEDS ORDERED: Allopurinol 300 MG Tab PO SCH (18:00)
[2024-04-19 19:57] VITALS: BP 135/80
[2024-04-19] MEDS ORDERED: Gabapentin 100 MG Cap PO SCH (21:00)
[2024-04-19] MEDS ORDERED: QUEtiapine Fumarate 25 MG Tab PO SCH (21:00)
[2024-04-20 04:09] VITALS: BP 123/74
[2024-04-20 05:07] LABS: BASOPHILS PERCENT AUTO 1 % (0-2); EOSINOPHILS ABSOLUTE AUTO 0.55 K/mm3 (0.00-0.68); EOSINOPHILS PERCENT AUTO 3 % (0-6); Hematocrit 35.4 % (33.0-51.0); Hemoglobin 10.9 g/dL (11.5-16.0); IMMATURE GRAN PERCENT AUTO 1 % (0-1); LYMPHOCYTES ABSOLUTE AUTO 2.73 K/mm3 (0.84-5.20); LYMPHOCYTES PERCENT AUTO 13 % (21-46); MONOCYTES ABSOLUTE AUTO 8.92 K/mm3 (0.16-1.47); MONOCYTES PERCENT AUTO 41 % (4-13); Mean Corpuscular HGB 29.6 pg (26.0-34.0); Mean Corpuscular HGB Conc 30.8 g/dL (31.5-36.5); Mean Corpuscular Volume 96 fL (80-100); Mean Platelet Volume 12.3 fL (9.1-12.4); NEUTROPHILS ABSOLUTE AUTO 9.16 K/mm3 (1.96-9.15); NEUTROPHILS PERCENT AUTO 42 % (41-73); Platelet Count 114 K/mm3 (150-400); RDW Coefficient Variation 13.7 % (11.7-14.2); RDW Standard Deviation 48.6 fL (35.1-46.3); Red Blood Cell Count 3.68 M/mm3 (3.80-5.20); White Blood Cell Count 21.76 K/mm3 (4.00-11.30)
--- NOTE | 2024-04-20 05:51 | NUR ---
SHIFT SUMMARY: Pt is admitted for P.E. and is a full code. Is alert and able to make needs known. ADLs have been 1p. Pain have been managed with PRN pain management. Corbin reports sinus in the 60s with a 1 deg and a bundle branch.
[2024-04-20 07:24] VITALS: BP 148/71
[2024-04-20] MEDS ORDERED: dexAMETHasone 4 MG TAB PO SCH (09:00)
[2024-04-20] MEDS ORDERED: Empagliflozin 10 MG TAB PO SCH (12:00)
[2024-04-20] MEDS ORDERED: Dose Adjust by Pharmacy XX STA (12:36)
[2024-04-20 15:03] VITALS: BP 129/63
[2024-04-20] MEDS ORDERED: SULFAMETHOXAZO1 EAC1 PO (15:13)
--- NOTE | 2024-04-20 17:51 | NUR ---
SHIFT SUMMARY: NO EVENTS OR CHANGES WITH THE PATIENT THROUGHOUT THE SHIFT. SHE CONTINUES TO BE ON A HEPARIN DRIP; SAME RATE. PATIENT APPEARS LESS SHORT OF BREATH TODAY VERSUS YESTERDAY. STARTED ON JARDIANCE, FIRST DOSE GIVEN TODAY. PATIENT IN BED, EATING DINNER, DAUGHTER AT BEDSIDE, CALL LIGHT WITHIN REACH, NO SIGNS OR SYMPTOMS OF DISTRESS, PLAN OF CARE ONGOING.
[2024-04-20 21:22] VITALS: BP 155/81
[2024-04-21 03:13] VITALS: BP 138/83
--- NOTE | 2024-04-21 05:34 | NUR ---
SHIFT SUMMARY: Pt is admitted for P.E. and is a full code. Is alert and able to make needs known. ADLs have been 1p. Pain have been managed with PRN pain management. Corbin reports sinus in the 80s with a 1 deg and a bundle branch.
[2024-04-21 05:49] LABS: Hematocrit 37.1 % (33.0-51.0); Hemoglobin 11.3 g/dL (11.5-16.0); Mean Corpuscular HGB Conc 30.5 g/dL (31.5-36.5); Mean Corpuscular Volume 95 fL (80-100); Platelet Count 109 K/mm3 (150-400); RDW Coefficient Variation 13.5 % (11.7-14.2); RDW Standard Deviation 47.6 fL (35.1-46.3); Red Blood Cell Count 3.89 M/mm3 (3.80-5.20); White Blood Cell Count 20.89 K/mm3 (4.00-11.30)
[2024-04-21 06:08] LABS: Albumin, Blood 3.1 g/dL (3.4-5.0); Anion Gap 10 mmol/L (3-11); Blood Urea Nitrogen 15 mg/dL (8-24); CO2, Blood 24 mmol/L (21-32); Calcium, Blood 8.1 mg/dL (8.5-10.1); Chloride, Blood 111 mmol/L (98-108); Creatinine, Blood 0.94 mg/dL (0.40-1.00); Glomerular Filtration Rate 61 (60-); Glucose, Blood 76 mg/dL (70-99); Phosphorus, Blood 2.7 mg/dL (2.5-4.9); Potassium, Blood 4.3 mmol/L (3.5-5.5); Sodium, Blood 141 mmol/L (136-145)
[2024-04-21 06:09] LABS: BASOPHILS PERCENT MAN 1 % (0-2); EOSINOPHILS ABSOLUTE MAN 0.41 K/mm3 (0.00-0.68); EOSINOPHILS PERCENT MAN 2 % (0-6); LYMPHOCYTES ABSOLUTE MAN 3.34 K/mm3 (0.84-5.20); LYMPHOCYTES PERCENT MAN 16 % (21-46); MONOCYTES PERCENT MAN 34 % (4-13); NEUTROPHILS ABSOLUTE MAN 9.81 K/mm3 (1.96-9.15); SEG NEUTROPHILS PERCENT MAN 47 % (41-73); TOTAL CELLS COUNTED 100
[2024-04-21] MEDS ORDERED: Clarify Drug Order XX ONE (06:20)
[2024-04-21 07:37] VITALS: BP 152/74
[2024-04-21] MEDS ORDERED: Apixaban 5 MG Tab PO SCH (09:00)
[2024-04-21] MEDS ORDERED: dexAMETHasone 4 MG TAB PO SCH (09:00)
[2024-04-21] MEDS ORDERED: ELIQUIS5 M2 (13:42)
[2024-04-21] MEDS ORDERED: DOCU100 PO (13:43)
[2024-04-21] MEDS ORDERED: ELIQUIS5 M7 PO (13:43)
[2024-04-21] MEDS ORDERED: JARDIANCE10 MG PO (13:43)
--- NOTE | 2024-04-21 14:40 | NUR ---
DISCHARGE NOTE: REMOVED PATIENT IV'S AND TELE. WENT OVER DISCHARGE WITH PATIENT'S DAUGHTER AT BEDSIDE. PATIENT GOT DRESSED AND HER DAUGHTER COLLECTED HER BELONGINGS. PATIENT WAS ABLE TO WALK ABOUT THE ROOM WITH A FWW. WAS TRANSFERRED DOWN TO [facility] BY THIS RN BY WHEELCHAIR. NO SIGNS OR SYMPTOMS OF DISTRESS DURING DISCHARGE.
== END 2024-04-21 14:16 | disposition home or self-care (01) | DRG 176 ==
LOC: ER 21:43 → MEDS 04-19 03:37 → ERHOLD 04-19 03:37 → MEDS 04-19 15:01 → ENPENDDIS 04-21 12:17 → MEDS 04-21 14:16
PROVIDERS: Emergency Medicine; Family Medicine; ADMIT Student in an Organized Health Care Education/Training Program
DX: I26.99 Other pulmonary embolism without acute cor pulmonale (principal); I50.32 Chronic diastolic (congestive) heart failure; C90.00 Multiple myeloma not having achieved remission; I27.20 Pulmonary hypertension, unspecified; I08.3 Combined rheumatic disorders of mitral, aortic and tricuspid valves; M48.00 Spinal stenosis, site unspecified; I11.0 Hypertensive heart disease with heart failure; Z85.3 Personal history of malignant neoplasm of breast; Z98.890 Other specified postprocedural states; Z79.899 Other long term (current) drug therapy; Z90.49 Acquired absence of other specified parts of digestive tract; Z90.11 Acquired absence of right breast and nipple; Z90.722 Acquired absence of ovaries, bilateral; Z90.89 Acquired absence of other organs; Z90.710 Acquired absence of both cervix and uterus; Z87.81 Personal history of (healed) traumatic fracture; Z87.891 Personal history of nicotine dependence; Z88.8 Allergy status to other drugs, medicaments and biological substances; Z88.1 Allergy status to other antibiotic agents
CPT/HCPCS: 36415; 71046; 71260; 80053; 80069; 83735; 83880; 84484; 85025; 85027; 85520; 85610; 85730; 93005; 93010; 93306; 93971; 96365-59; 99285-25; A9270; J1644; J7060; Q9967

== ENCOUNTER → 2024-08-15 | Outpatient (CLI) | payer OTHER ==
[~2024-08-15] MED LIST changes: +DOCU100 PO; +ELIQUIS5 M2; +ELIQUIS5 M7 PO; +GABA100 PO; +JARDIANCE10 MG PO; +LENALIDOMIDE PO; +METOPROLOL SUCC25 MG PO; +SULFAMETHOXAZO1 EAC1 PO; +SULTRIDS PO
[2024-08-15 16:35] LABS: Hematocrit 43.4 % (33.0-51.0); Hemoglobin 13.2 g/dL (11.5-16.0); Mean Corpuscular HGB 28.3 pg (26.0-34.0); Mean Corpuscular HGB Conc 30.4 g/dL (31.5-36.5); Mean Corpuscular Volume 93 fL (80-100); Mean Platelet Volume 12.2 fL (9.1-12.4); Platelet Count 170 K/mm3 (150-400); RDW Coefficient Variation 14.4 % (11.7-14.2); RDW Standard Deviation 48.9 fL (35.1-46.3); Red Blood Cell Count 4.67 M/mm3 (3.80-5.20); White Blood Cell Count 17.89 K/mm3 (4.00-11.30)
[2024-08-15 16:45] LABS: Albumin, Blood 3.5 g/dL (3.4-5.0); Albumin/Globulin Ratio 1.3 (0.8-1.8); Bilirubin, Total 0.6 mg/dL (0.1-1.0); Calcium, Blood 8.7 mg/dL (8.5-10.1); Creatinine, Blood 0.85 mg/dL (0.40-1.00); Globulin, Blood 2.6 g/dL (2.2-4.0); Phosphorus, Blood 2.3 mg/dL (2.5-4.9); Potassium, Blood 3.8 mmol/L (3.5-5.5); Total Protein, Blood 6.1 g/dL (6.4-8.2)
[2024-08-15 17:10] LABS: BASOPHILS PERCENT MAN 0 % (0-2); EOSINOPHILS PERCENT MAN 0 % (0-6); LYMPHOCYTES ABSOLUTE MAN 1.07 K/mm3 (0.84-5.20); LYMPHOCYTES PERCENT MAN 6 % (21-46); MONOCYTES ABSOLUTE MAN 2.86 K/mm3 (0.16-1.47); MONOCYTES PERCENT MAN 16 % (4-13); NEUTROPHILS ABSOLUTE MAN 13.95 K/mm3 (1.96-9.15); SEG NEUTROPHILS PERCENT MAN 78 % (41-73); TOTAL CELLS COUNTED 100
[2024-08-18 21:42] LABS: ALBUMIN 3.69 g/dL (3.75-5.01); ALPHA 1 GLOBULIN 0.29 g/dL (0.19-0.46); ALPHA 2 GLOBULIN 0.67 g/dL (0.48-1.05); BETA GLOBULIN 0.63 g/dL (0.48-1.10); GAMMA 0.72 g/dL (0.62-1.51); IMMUNOFIXATION IFE Done; IMMUNOGLOBULIN A 67 mg/dL (68-408); IMMUNOGLOBULIN G 697 mg/dL (768-1632); IMMUNOGLOBULIN M 41 mg/dL (35-263); KAPPA QNT FREE LIGHT CHAINS 29.02 mg/L (3.30-19.40); KAPPA/LAMBDA FLC RATIO 3.35 (0.26-1.65); LAMBDA QNT FREE LIGHT CHAINS 8.65 mg/L (5.71-26.30); MONOCLONAL PROTEIN 0.46 g/dL (<=0.00)
== END ==
LOC: LAB SHORT 11:20 → LAB 11:20
PROVIDERS: Internal Medicine Hematology & Oncology
DX: C90.00 Multiple myeloma not having achieved remission (principal)
CPT/HCPCS: 80053; 82784; 83521; 84100; 84155; 84165; 85025; 86334

== ENCOUNTER 2024-09-21 10:06 | Emergency (ER) | payer OTHER ==
[~2024-09-21] VITALS: Ht 152.4 cm; Wt 46.3 kg
[2024-09-21 10:15] VITALS: BP 139/102
== END 2024-09-21 10:35 | disposition home or self-care (01) ==
LOC: ER 10:06
DX: S90.411A Abrasion, right great toe, initial encounter (principal); X58.XXXA Exposure to other specified factors, initial encounter; I11.0 Hypertensive heart disease with heart failure; I50.9 Heart failure, unspecified; Z87.891 Personal history of nicotine dependence; Z79.891 Long term (current) use of opiate analgesic; Z79.52 Long term (current) use of systemic steroids; Z79.899 Other long term (current) drug therapy; Z79.83 Long term (current) use of bisphosphonates; Z79.2 Long term (current) use of antibiotics; Z79.02 Long term (current) use of antithrombotics/antiplatelets; Z79.1 Long term (current) use of non-steroidal anti-inflammatories (NSAID); Z88.2 Allergy status to sulfonamides; Z88.9 Allergy status to unspecified drugs, medicaments and biological substances; Z79.01 Long term (current) use of anticoagulants; Z79.84 Long term (current) use of oral hypoglycemic drugs
CPT/HCPCS: 12001; 99282-25

== ENCOUNTER → 2024-11-07 | Outpatient (CLI) | payer OTHER ==
[2024-11-07 18:53] LABS: BASOPHILS ABSOLUTE AUTO 0.05 K/mm3 (0.00-0.23); BASOPHILS PERCENT AUTO 0 % (0-2); EOSINOPHILS ABSOLUTE AUTO 0.02 K/mm3 (0.00-0.68); EOSINOPHILS PERCENT AUTO 0 % (0-6); Hematocrit 40.8 % (33.0-51.0); Hemoglobin 12.6 g/dL (11.5-16.0); IMMATURE GRAN ABSOLUTE AUTO 0.43 K/mm3 (0.00-0.10); IMMATURE GRAN PERCENT AUTO 2 % (0-1); LYMPHOCYTES ABSOLUTE AUTO 0.85 K/mm3 (0.84-5.20); LYMPHOCYTES PERCENT AUTO 5 % (21-46); MONOCYTES ABSOLUTE AUTO 2.33 K/mm3 (0.16-1.47); MONOCYTES PERCENT AUTO 13 % (4-13); Mean Corpuscular HGB 28.8 pg (26.0-34.0); Mean Corpuscular HGB Conc 30.9 g/dL (31.5-36.5); Mean Corpuscular Volume 93 fL (80-100); NEUTROPHILS ABSOLUTE AUTO 14.73 K/mm3 (1.96-9.15); NEUTROPHILS PERCENT AUTO 80 % (41-73); Platelet Count 154 K/mm3 (150-400); RDW Coefficient Variation 14.9 % (11.7-14.2); RDW Standard Deviation 51.1 fL (35.1-46.3); Red Blood Cell Count 4.38 M/mm3 (3.80-5.20); White Blood Cell Count 18.41 K/mm3 (4.00-11.30)
[2024-11-07 19:40] LABS: Albumin, Blood 3.7 g/dL (3.4-5.0); Albumin/Globulin Ratio 1.6 (0.8-1.8); Bilirubin, Total 0.6 mg/dL (0.1-1.0); Bun/Creatinine Ratio 20.9 (12.0-20.0); Calcium, Blood 9.1 mg/dL (8.5-10.1); Creatinine, Blood 1.15 mg/dL (0.40-1.00); Globulin, Blood 2.3 g/dL (2.2-4.0); Phosphorus, Blood 3.2 mg/dL (2.5-4.9); Potassium, Blood 3.9 mmol/L (3.5-5.5)
[2024-11-11 14:11] LABS: ALPHA 1 GLOBULIN 0.33 g/dL (0.19-0.46); ALPHA 2 GLOBULIN 0.73 g/dL (0.48-1.05); BETA GLOBULIN 0.63 g/dL (0.48-1.10); GAMMA 0.61 g/dL (0.62-1.51); IMMUNOFIXATION IFE Done; IMMUNOGLOBULIN A 78 mg/dL (68-408); IMMUNOGLOBULIN G 617 mg/dL (768-1632); IMMUNOGLOBULIN M 37 mg/dL (35-263); KAPPA QNT FREE LIGHT CHAINS 29.25 mg/L (3.30-19.40); KAPPA/LAMBDA FLC RATIO 2.41 (0.26-1.65); LAMBDA QNT FREE LIGHT CHAINS 12.12 mg/L (5.71-26.30); MONOCLONAL PROTEIN 0.37 g/dL (<=0.00)
== END ==
LOC: LAB SHORT 17:04 → LAB 17:04
PROVIDERS: Internal Medicine Hematology & Oncology
DX: C90.00 Multiple myeloma not having achieved remission (principal)
CPT/HCPCS: 80053; 82784; 83521; 84100; 84155; 84165; 85025; 86334

== ENCOUNTER 2024-11-20 10:04 | Inpatient (IN) | payer OTHER ==
[~2024-11-20] VITALS: Ht 152.4 cm; Wt 47.7 kg
[~2024-11-20 10:04] MED LIST changes: -Acetaminophen325 M1 PO
[2024-11-20 12:28] LABS: BASOPHILS PERCENT AUTO 0 % (0-2); EOSINOPHILS ABSOLUTE AUTO 0.13 K/mm3 (0.00-0.68); EOSINOPHILS PERCENT AUTO 0 % (0-6); Hematocrit 39.7 % (33.0-51.0); Hemoglobin 12.4 g/dL (11.5-16.0); IMMATURE GRAN ABSOLUTE AUTO 1.11 K/mm3 (0.00-0.10); IMMATURE GRAN PERCENT AUTO 4 % (0-1); LYMPHOCYTES ABSOLUTE AUTO 1.52 K/mm3 (0.84-5.20); LYMPHOCYTES PERCENT AUTO 5 % (21-46); MONOCYTES ABSOLUTE AUTO 11.58 K/mm3 (0.16-1.47); MONOCYTES PERCENT AUTO 40 % (4-13); Mean Corpuscular HGB 28.6 pg (26.0-34.0); Mean Corpuscular HGB Conc 31.2 g/dL (31.5-36.5); Mean Corpuscular Volume 92 fL (80-100); Mean Platelet Volume 12.6 fL (9.1-12.4); NEUTROPHILS ABSOLUTE AUTO 14.54 K/mm3 (1.96-9.15); NEUTROPHILS PERCENT AUTO 50 % (41-73); Platelet Count 120 K/mm3 (150-400); RDW Coefficient Variation 14.8 % (11.7-14.2); RDW Standard Deviation 50.1 fL (35.1-46.3); Red Blood Cell Count 4.34 M/mm3 (3.80-5.20); White Blood Cell Count 28.98 K/mm3 (4.00-11.30)
[2024-11-20 12:56] LABS: Albumin, Blood 3.3 g/dL (3.4-5.0); Albumin/Globulin Ratio 1.2 (0.8-1.8); Bilirubin, Total 0.5 mg/dL (0.1-1.0); Bun/Creatinine Ratio 24.2 (12.0-20.0); Calcium, Blood 9.1 mg/dL (8.5-10.1); Creatinine, Blood 0.91 mg/dL (0.40-1.00); Globulin, Blood 2.7 g/dL (2.2-4.0); Potassium, Blood 3.4 mmol/L (3.5-5.5)
[2024-11-20] MEDS ORDERED: FURO20 PO (14:31)
[2024-11-20] MEDS ORDERED: POTA10T PO (14:32)
[2024-11-20] MEDS ORDERED: JARDIANCE10 MG PO (14:34)
[2024-11-20] MEDS ORDERED: LENALIDOMIDE PO (14:34)
[2024-11-20 14:37] LABS: Source, Urine Clean Catch
[2024-11-20 14:44] LABS: Appearance, Urine Cloudy (Clear); Bilirubin, Urine Neg (Neg); Blood, Urine 2+ (Neg); Glucose Qualitative, Urine Neg (Neg); Ketones, Urine Neg (Neg); Leukocyte Esterase, Urine Neg (Neg); Nitrite, Urine Neg (Neg); Protein, Urine 2+ (Neg); Urobilinogen, Urine NORM (Normal)
[2024-11-20 15:09] LABS: Color, Urine Pale Yellow (P-Yellow)
[2024-11-20 15:10] LABS: Amorphous Mod (0-Heavy); Bacteria Few /hpf; Squamous Epithelial Cells Few /hpf (Few); White Blood Cells, Urine 0-2 /hpf (0-5)
[2024-11-20] MEDS ORDERED: Ketorolac Tromethamine 15mg Vial IV ONE (15:35)
[2024-11-20] MEDS ORDERED: LORazepam 1 MG Tab PO ONE (15:35)
[2024-11-20] MEDS ORDERED: Trimethoprim/Sulfamethoxazole DS Tab PO SCH (21:10)
[2024-11-20] MEDS ORDERED: Polyethylene Glycol 3350 17 gm PO PRN (21:15)
[2024-11-20] MEDS ORDERED: Sennosides 8.6 MG Tab PO PRN (21:15)
[2024-11-20] MEDS ORDERED: Aspirin 325 MG Tab PO ONE (21:20)
[2024-11-20] MEDS ORDERED: Ondansetron 4 MG SoluTab MM PRN (21:20)
[2024-11-20] MEDS ORDERED: Lactated Ringer's 1,000 ML IV SCH (21:25)
[2024-11-20] MEDS ORDERED: Empagliflozin 10 MG TAB PO SCH (22:00)
[2024-11-20 23:19] VITALS: BP 106/62
[2024-11-21 03:48] VITALS: BP 158/74
--- NOTE | 2024-11-21 04:56 | NUR ---
SHIFT SUMMARY PATIENT IS ALERT AND ORIENTED X3. PATIENT HAS HAD NO ACUTE EVENTS THIS SHIFT. VITAL SIGNS REVIEWED. PATIENT IS AN ADMIT OVERNIGHT FOR POSSIBLE CVA. AWAITING MRI HEAD TODAY. PATIENT HAS HAD NO COMPLAINTS OF PAIN, NAUSEA, SOB OR VOMITTING THIS SHIFT. BED IN LOCKED AND LOWEST POSITION.
[2024-11-21] MEDS ORDERED: Lidocaine 4% 1 Patch TOP SCH (05:15)
[2024-11-21 05:35] LABS: BASOPHILS ABSOLUTE AUTO 0.11 K/mm3 (0.00-0.23); BASOPHILS PERCENT AUTO 0 % (0-2); EOSINOPHILS ABSOLUTE AUTO 0.04 K/mm3 (0.00-0.68); EOSINOPHILS PERCENT AUTO 0 % (0-6); Hematocrit 42.3 % (33.0-51.0); Hemoglobin 13.2 g/dL (11.5-16.0); IMMATURE GRAN ABSOLUTE AUTO 1.26 K/mm3 (0.00-0.10); IMMATURE GRAN PERCENT AUTO 3 % (0-1); LYMPHOCYTES ABSOLUTE AUTO 1.24 K/mm3 (0.84-5.20); LYMPHOCYTES PERCENT AUTO 3 % (21-46); MONOCYTES ABSOLUTE AUTO 15.51 K/mm3 (0.16-1.47); MONOCYTES PERCENT AUTO 41 % (4-13); Mean Corpuscular HGB 28.9 pg (26.0-34.0); Mean Corpuscular HGB Conc 31.2 g/dL (31.5-36.5); Mean Corpuscular Volume 93 fL (80-100); Mean Platelet Volume 12.8 fL (9.1-12.4); NEUTROPHILS ABSOLUTE AUTO 19.89 K/mm3 (1.96-9.15); NEUTROPHILS PERCENT AUTO 52 % (41-73); Platelet Count 113 K/mm3 (150-400); RDW Coefficient Variation 14.9 % (11.7-14.2); RDW Standard Deviation 51.2 fL (35.1-46.3); Red Blood Cell Count 4.56 M/mm3 (3.80-5.20); White Blood Cell Count 38.05 K/mm3 (4.00-11.30)
[2024-11-21 05:49] LABS: Albumin, Blood 3.4 g/dL (3.4-5.0); Albumin/Globulin Ratio 1.2 (0.8-1.8); Bilirubin, Total 0.6 mg/dL (0.1-1.0); Bun/Creatinine Ratio 22.1 (12.0-20.0); Calcium, Blood 9.2 mg/dL (8.5-10.1); Creatinine, Blood 0.86 mg/dL (0.40-1.00); Globulin, Blood 2.9 g/dL (2.2-4.0); Potassium, Blood 3.4 mmol/L (3.5-5.5); Total Protein, Blood 6.3 g/dL (6.4-8.2)
[2024-11-21] MEDS ORDERED: Omeprazole 20 MG CapCR PO SCH (06:00)
[2024-11-21 07:44] VITALS: BP 132/74
[2024-11-21] MEDS ORDERED: Cholecalciferol 1000 Unit Tablet (=25MCG) PO SCH (09:00)
[2024-11-21] MEDS ORDERED: Docusate Sodium 100 MG Cap PO SCH (09:00)
[2024-11-21] MEDS ORDERED: Apixaban 5 MG Tab PO SCH ×2 (09:00)
[2024-11-21] MEDS ORDERED: Allopurinol 300 MG Tab PO SCH (09:00)
[2024-11-21] MEDS ORDERED: Furosemide 20 MG Tab PO SCH (09:00)
[2024-11-21] MEDS ORDERED: Potassium Chloride 10 Meq Tablet SA PO SCH (09:00)
[2024-11-21] MEDS ORDERED: Acetaminophen 325 MG TABLET PO SCH (09:00)
[2024-11-21] MEDS ORDERED: dexAMETHasone 4 MG TAB PO SCH (09:00)
[2024-11-21] MEDS ORDERED: Atorvastatin 10 MG Tab PO SCH (09:00)
[2024-11-21] MEDS ORDERED: Aspirin 81 MG Chew PO SCH (09:00)
[2024-11-21] MEDS ORDERED: Ascorbic Acid 500 MG Tab PO SCH (09:00)
[2024-11-21] MEDS ORDERED: Ipratropium/Albuterol SulF 2.5-0.5MG/3 ML Amp INH SCH (11:00)
[2024-11-21 12:26] VITALS: BP 139/80
[2024-11-21] MEDS ORDERED: MELA3 PO (14:10)
[2024-11-21] MEDS ORDERED: CALCIUM 600 +1 EA11 PO (14:10)
[2024-11-21] MEDS ORDERED: CONSTULOSE10 GM/15 M PO (14:11)
[2024-11-21] MEDS ORDERED: DOCUZEN 8.6-501 EACH PO (14:12)
[2024-11-21 15:18] VITALS: BP 139/77
--- NOTE | 2024-11-21 17:24 | NUR ---
ASSUMED CARE OF PT, A/O X 3 SLOW TO SPEAK BUT ANSWERS APPROPRIATLY, PT C/O CHRONIC BACK PAIN THAT IS MANAGED WITH TYLENOL. RIGHT SIDE WEAKNESS IS FOCUSED TO LOWER EXTREMITY, PT HAS GOOD DOCTOR OF DENTAL MEDICINE WITH RIGHT HAND BUT RIGHT LOWER LEG IS VERY WEAK. CXRAY AND MRI DONE, PT GEOVANNA WELL. FAMILY AT BEDSIDE. PT TURNED [id number]
[2024-11-21] MEDS ORDERED: Metoprolol Succinate 25 MG TABCR PO SCH (18:00)
[2024-11-21 19:33] VITALS: BP 143/78
[2024-11-21] MEDS ORDERED: QUEtiapine Fumarate 25 MG Tab PO SCH (21:00)
[2024-11-21] MEDS ORDERED: Gabapentin 100 MG Cap PO SCH (21:00)
[2024-11-22] VITALS (8 sets, daily range): BP systolic 96–151; BP diastolic 71–86
--- NOTE | 2024-11-22 04:28 | NUR ---
SHIFT SUMMARY: PT AOX4 CALLS APPROPRIATELY, ABLE TO MAKE NEEDS KNOWN, COOPERATIVE IN CARE. SLEPT THROUGHOUT THE NIGHT. PURE WICK IN PLACE WITH MILI OUTPUT. NO ACUTE EVENTS OVERNIGHT. PT IN BED SLEEPING, BED IN LOWEST POSITION, CALL LIGHT IN REACH. CONTINUING CARE.
[2024-11-22 05:28] LABS: BASOPHILS ABSOLUTE AUTO 0.08 K/mm3 (0.00-0.23); BASOPHILS PERCENT AUTO 0 % (0-2); EOSINOPHILS ABSOLUTE AUTO 0.01 K/mm3 (0.00-0.68); EOSINOPHILS PERCENT AUTO 0 % (0-6); Hematocrit 37.8 % (33.0-51.0); IMMATURE GRAN ABSOLUTE AUTO 1.23 K/mm3 (0.00-0.10); IMMATURE GRAN PERCENT AUTO 3 % (0-1); LYMPHOCYTES ABSOLUTE AUTO 0.94 K/mm3 (0.84-5.20); LYMPHOCYTES PERCENT AUTO 3 % (21-46); MONOCYTES ABSOLUTE AUTO 15.48 K/mm3 (0.16-1.47); MONOCYTES PERCENT AUTO 40 % (4-13); Mean Corpuscular HGB 28.4 pg (26.0-34.0); Mean Corpuscular HGB Conc 31.7 g/dL (31.5-36.5); Mean Corpuscular Volume 90 fL (80-100); Mean Platelet Volume 12.6 fL (9.1-12.4); NEUTROPHILS ABSOLUTE AUTO 20.61 K/mm3 (1.96-9.15); NEUTROPHILS PERCENT AUTO 54 % (41-73); Platelet Count 112 K/mm3 (150-400); RDW Coefficient Variation 14.7 % (11.7-14.2); RDW Standard Deviation 48.6 fL (35.1-46.3); Red Blood Cell Count 4.22 M/mm3 (3.80-5.20); White Blood Cell Count 38.35 K/mm3 (4.00-11.30)
[2024-11-22 05:49] LABS: BASOPHILS PERCENT MAN 0 % (0-2); EOSINOPHILS PERCENT MAN 0 % (0-6); LYMPHOCYTES ABSOLUTE MAN 0.76 K/mm3 (0.84-5.20); LYMPHOCYTES PERCENT MAN 2 % (21-46); MONOCYTES PERCENT MAN 42 % (4-13); NEUTROPHILS ABSOLUTE MAN 21.47 K/mm3 (1.96-9.15); SEG NEUTROPHILS PERCENT MAN 56 % (41-73); TOTAL CELLS COUNTED 100
[2024-11-22 05:51] LABS: Bun/Creatinine Ratio 20.9 (12.0-20.0); Calcium, Blood 9.6 mg/dL (8.5-10.1); Creatinine, Blood 0.96 mg/dL (0.40-1.00); Potassium, Blood 3.8 mmol/L (3.5-5.5)
[2024-11-22] MEDS ORDERED: LevoFLOXacin 750 MG Tab PO SCH (10:00)
--- NOTE | 2024-11-22 18:21 | NUR ---
SHIFT SUMMARY PT A&OX4, VSS, TOLERATING PO, VOIDING, AND PAIN MANAGED PER EMAR. PT WORKED W/ PHYSICAL THERAPY THIS SHIFT AND WAS ABLE TO GET TO THE EOB AND STAND, SEE THERAPY NOTE. PT'S METAL FABRICATOR HELPER STRENGTH EQUAL, BUT UNABLE TO RAISE RUE PAST CHEST LEVEL. RLE CONT TO BE WEAK. PT DENIES N/T AND OR VISION CHANGES. BLOOD AND URINE CULTURE PENDING. PT HAS SACRUM PRESSURE ULCER STAGE 2 ON SACRUM, PICTURE TAKEN AND PLACED IN CHART. MEPILEX APPLIED AND Q2H REPOSITIONING. NO OTHER ACUTE CHANGES. CALL LIGHT WITHIN REACH AND PT ABLE TO MAKE NEEDS KNOWN.
[2024-11-22] MEDS ORDERED: Docusate Sodium/Senna 1 Tab PO PRN (18:40)
[2024-11-22] MEDS ORDERED: Calcium/Vit D 600 mg-400 Unit Tab PO SCH (21:00)
[2024-11-22] MEDS ORDERED: Melatonin 3 MG Tab PO SCH (21:00)
[2024-11-23 03:16] VITALS: BP 123/66
[2024-11-23 04:53] LABS: Hematocrit 34.6 % (33.0-51.0); Hemoglobin 10.9 g/dL (11.5-16.0); Mean Corpuscular HGB Conc 31.5 g/dL (31.5-36.5); Mean Corpuscular Volume 92 fL (80-100); Mean Platelet Volume 12.4 fL (9.1-12.4); Platelet Count 101 K/mm3 (150-400); RDW Coefficient Variation 14.7 % (11.7-14.2); RDW Standard Deviation 50.1 fL (35.1-46.3); Red Blood Cell Count 3.76 M/mm3 (3.80-5.20); White Blood Cell Count 32.62 K/mm3 (4.00-11.30)
[2024-11-23 05:27] LABS: Bun/Creatinine Ratio 23.1 (12.0-20.0); Creatinine, Blood 1.21 mg/dL (0.40-1.00)
--- NOTE | 2024-11-23 05:37 | NUR ---
SHIFT SUMMARY: PT AOX4, NORMALLY CALLS APPROPRIATELY AND IS ABLE TO MAKE NEEDS KNOWN. HOWEVER, DID HAVE AN INCONT VOID AND STOOL BUT DID NOT TELL STAFF. CHANGED AND CLEANED. PT FOUND TO HAVE NEW PRESSURE ULCER, HAD BEEN DECLINING REPOSITIONING BEFORE, BUT AFTER EDUCATED ON WHY IS MORE OPEN TO IT. INFANT ROOM TEACHER STILL EQUAL BILATERALLY, BUT R LEG STILL MUCH WEAKER THAN THE RIGHT. IS COOPERATIVE IN CARE AND VERY PLEASANT. TOLERATING MEDICATIONS WELL. NO ACUTE EVENTS OVERNIGHT. PT IN BED RESTING, BED IN LOWEST POSITION, CALL LIGHT IN REACH. CONTINUING CARE.
[2024-11-23 07:01] VITALS: BP 123/70
[2024-11-23] MEDS ORDERED: ASPI81CH PO (12:12)
[2024-11-23] MEDS ORDERED: LEVO750 PO (12:14)
--- NOTE | 2024-11-23 15:13 | NUR ---
DISCHARGE NOTE PT D/C TO SNF AT 1455. PT A&OX4, VSS, TOLERATING PO, VOIDING, AND PAIN MANAGED PER EMAR. BELONGINGS WERE RETURNED. DISCHARGE PACKET GIVEN TO TRANSPORT. THIS RN CALLED [facility] AND GAVE REPORT TO JENNIFER FERRELL. TRANSPORT ESCOURTED PT OUT VIA W/C.
[2024-11-24 23:02] LABS: HOMOCYSTEINE, TOTAL 14 umol/L (0-15)
[2024-11-25 09:51] LABS: CARDIOLIPIN ANTIBODY IGG <10 GPL (<=14); CARDIOLIPIN ANTIBODY IGM <10 MPL (<=12)
[2024-11-25 10:30] LABS: PROTEIN S AG FREE 86 % (55-123)
[2024-11-25 11:04] LABS: B2GLYCOPROTEIN 1, IGG ANTIBODY <10 SGU (<=20); B2GLYCOPROTEIN 1, IGM ANTIBODY <10 SMU (<=20)
[2024-11-25 14:21] LABS: ANTI-XA QUALITATIVE INTERP Present (Not Present); ANTICOAG MEDICATION NEUTRALIZ DOAC-Stop (Not Performed); DRVVT 1:1 MIX RATIO 1.12 (<=1.20); DRVVT CONFIRMATION RATIO 0.87 (<=1.20); HEXAGONAL PHOSPHOLIPID CONFIRM 18.3 s (<=7.9); NEUTRALIZED DRVVT SCREEN RATIO 1.43 (<=1.20); NEUTRALIZED PTT-LA RATIO 1.42 (<=1.20); PROTHROMBIN TIME (PT) 24.8 s (12.0-15.5); PTT-LA RATIO 1.84 (<=1.20); THROMBIN TIME (TT) 16.6 s (<=19.5)
[2024-11-25 15:23] LABS: PROTEIN C FUNCTIONAL 158 % (83-168)
[2024-11-25 15:46] LABS: APC RESISTANCE 4.43 (>=2.00); FACTOR V LEIDEN BY PCR Not Done; FACV REF SPECIMEN Not Done
[2024-11-25 17:05] LABS: ANTITHROMBIN, ENZYM (ACTIVITY) 116 % (76-128)
== END 2024-11-23 14:53 | DRG 65 ==
LOC: ER 10:04 → MEDS 23:06
PROVIDERS: Internal Medicine; Student in an Organized Health Care Education/Training Program; ADMIT Family Medicine
DX: I63.89 Other cerebral infarction (principal); C90.00 Multiple myeloma not having achieved remission; G81.91 Hemiplegia, unspecified affecting right dominant side; I50.32 Chronic diastolic (congestive) heart failure; R29.707 NIHSS score 7; I11.0 Hypertensive heart disease with heart failure; M20.40 Other hammer toe(s) (acquired), unspecified foot; M48.061 Spinal stenosis, lumbar region without neurogenic claudication; D69.6 Thrombocytopenia, unspecified; E87.6 Hypokalemia; M10.9 Gout, unspecified; K21.9 Gastro-esophageal reflux disease without esophagitis; I27.20 Pulmonary hypertension, unspecified; D72.829 Elevated white blood cell count, unspecified; M81.0 Age-related osteoporosis without current pathological fracture; D72.820 Lymphocytosis (symptomatic); I08.3 Combined rheumatic disorders of mitral, aortic and tricuspid valves; Z79.01 Long term (current) use of anticoagulants; Z79.899 Other long term (current) drug therapy; Z85.3 Personal history of malignant neoplasm of breast; Z51.11 Encounter for antineoplastic chemotherapy; Z90.49 Acquired absence of other specified parts of digestive tract; Z90.11 Acquired absence of right breast and nipple; Z90.722 Acquired absence of ovaries, bilateral; Z87.19 Personal history of other diseases of the digestive system; Z87.891 Personal history of nicotine dependence; Z86.711 Personal history of pulmonary embolism; Z87.440 Personal history of urinary (tract) infections
CPT/HCPCS: 36415; 70450; 70496; 70498; 70551; 71045; 72148; 80048; 80053; 81001; 83880; 84145; 85007; 85025; 85027; 85520; 85613; 85670; 85730; 87077; 87086; 87186; 92610; 93308; 93321; 94640; 94664; 94760; 96374-59; 97112; 97162; 97165; 97530; 97535; 99285-25; A9270; G0378; J1885; J7120; Q9967

== ENCOUNTER 2025-02-03 17:46 | Emergency (ER) | payer OTHER ==
[~2025-02-03] VITALS: Ht 152.4 cm; Wt 44.9 kg
[~2025-02-03 17:46] MED LIST changes: +ASPI81CH PO; +CALCIUM 600 +1 EA11 PO; +CONSTULOSE10 GM/15 M PO; +DOCUZEN 8.6-501 EACH PO; +FURO20 PO; +LEVO750 PO; +MELA3 PO; +POTA10T PO
[2025-02-03 18:42] LABS: BASOPHILS ABSOLUTE AUTO 0.04 K/mm3 (0.00-0.23); BASOPHILS PERCENT AUTO 0 % (0-2); EOSINOPHILS ABSOLUTE AUTO 0.00 K/mm3 (0.00-0.68); EOSINOPHILS PERCENT AUTO 0 % (0-6); Hematocrit 35.9 % (33.0-51.0); Hemoglobin 10.8 g/dL (11.5-16.0); IMMATURE GRAN ABSOLUTE AUTO 1.20 K/mm3 (0.00-0.10); IMMATURE GRAN PERCENT AUTO 5 % (0-1); LYMPHOCYTES ABSOLUTE AUTO 0.72 K/mm3 (0.84-5.20); LYMPHOCYTES PERCENT AUTO 3 % (21-46); MONOCYTES ABSOLUTE AUTO 0.72 K/mm3 (0.16-1.47); MONOCYTES PERCENT AUTO 3 % (4-13); Mean Corpuscular HGB Conc 30.1 g/dL (31.5-36.5); Mean Corpuscular Volume 85 fL (80-100); NEUTROPHILS ABSOLUTE AUTO 22.25 K/mm3 (1.96-9.15); NEUTROPHILS PERCENT AUTO 89 % (41-73); NRBC ABSOLUTE 0.00 K/mm3 (0.00-0.02); NRBC Auto 0.0 /100 WBC (0.0-0.2); Platelet Count 179 K/mm3 (150-400); RDW Coefficient Variation 14.2 % (11.7-14.2); RDW Standard Deviation 43.9 fL (35.1-46.3)
[2025-02-03 18:56] LABS: Anion Gap 8.0 mmol/L (3-11); Blood Urea Nitrogen 22.0 mg/dL (8-24); CO2, Blood 28.0 mmol/L (21-32); Calcium, Blood 8.9 mg/dL (8.5-10.1); Chloride, Blood 107.0 mmol/L (98-108); Creatinine, Blood 0.85 mg/dL (0.40-1.00); Glucose, Blood 171.0 mg/dL (70-99); Magnesium, Blood 1.7 mg/dL (1.6-2.4); Potassium, Blood 3.9 mmol/L (3.5-5.5); Sodium, Blood 139.0 mmol/L (136-145)
[2025-02-03] MEDS ORDERED: FURO20 PO (22:34)
[2025-02-03 22:54] VITALS: BP 149/81
== END 2025-02-03 23:02 | disposition home or self-care (01) ==
LOC: ER 17:46
PROVIDERS: Emergency Medicine
DX: R60.0 Localized edema (principal); I11.0 Hypertensive heart disease with heart failure; I50.9 Heart failure, unspecified; Z87.891 Personal history of nicotine dependence; Z79.82 Long term (current) use of aspirin; Z79.899 Other long term (current) drug therapy
CPT/HCPCS: 71045; 80048; 83735; 83880; 84484; 85025; 93005; 93010; 96374; 99284-25; J1938

== ENCOUNTER → 2025-03-07 | Outpatient (CLI) | payer OTHER | LOC: LAB SHORT 10:30 → LAB 10:30 | DX: L97.526 Non-pressure chronic ulcer of other part of left foot with bone involvement without evidence of necrosis (principal); Z91.148 Patient's other noncompliance with medication regimen for other reason | CPT/HCPCS: 87070; 87205 ==

== ENCOUNTER 2025-03-31 09:31 | Emergency (ER) | payer OTHER ==
[~2025-03-31] VITALS: Ht 152.4 cm; Wt 45.4 kg
[2025-03-31] MEDS ORDERED: OxyCODONE 5 mg/Acetamin 325 mg TABLET PO ONE (10:55)
[2025-03-31] MEDS ORDERED: Percocet 5-3251 EACH PO (14:02)
[2025-03-31 14:45] VITALS: BP 118/72
== END 2025-03-31 15:14 | disposition home or self-care (01) ==
LOC: ER 09:31
DX: S81.011A Laceration without foreign body, right knee, initial encounter (principal); S00.83XA Contusion of other part of head, initial encounter; S09.90XA Unspecified injury of head, initial encounter; W18.30XA Fall on same level, unspecified, initial encounter; M25.461 Effusion, right knee; R60.0 Localized edema; M17.11 Unilateral primary osteoarthritis, right knee; M54.2 Cervicalgia; Z79.899 Other long term (current) drug therapy; Z79.2 Long term (current) use of antibiotics; I11.0 Hypertensive heart disease with heart failure; I50.9 Heart failure, unspecified; Z87.891 Personal history of nicotine dependence; W06.XXXA Fall from bed, initial encounter
CPT/HCPCS: 70450; 72125; 73562-RT; 73700; 90471; 90715; 99284-25; A6590; A9270

== ENCOUNTER 2025-04-09 16:41 | Inpatient (IN) | payer OTHER ==
[~2025-04-09] VITALS: Ht 152.4 cm; Wt 44.6 kg
[~2025-04-09 16:41] MED LIST changes: +Percocet 5-3251 EACH PO
[2025-04-09] MEDS ORDERED: Ipratropium/Albuterol SulF 2.5-0.5MG/3 ML Amp INH PRN (17:15)
[2025-04-09 17:43] LABS: Hematocrit 32.0 % (33.0-51.0); Hemoglobin 9.0 g/dL (11.5-16.0); Mean Corpuscular HGB Conc 28.1 g/dL (31.5-36.5); Mean Corpuscular Volume 81 fL (80-100); NRBC ABSOLUTE 0.10 K/mm3 (0.00-0.02); NRBC Auto 0.2 /100 WBC (0.0-0.2); Platelet Count 115 K/mm3 (150-400); RDW Coefficient Variation 18.4 % (11.7-14.2); RDW Standard Deviation 49.7 fL (35.1-46.3)
[2025-04-09 18:12] LABS: BAND PERCENT MAN 5 % (0-8); BASOPHILS ABSOLUTE MAN 0.00 K/mm3 (0.00-0.23); BASOPHILS PERCENT MAN 0 % (0-2); EOSINOPHILS ABSOLUTE MAN 0.00 K/mm3 (0.00-0.68); EOSINOPHILS PERCENT MAN 0 % (0-6); LYMPHOCYTES ABSOLUTE MAN 8.49 K/mm3 (0.84-5.20); LYMPHOCYTES PERCENT MAN 18 % (21-46); METAMYELOCYTE ABSOLUTE MAN 0.94 K/mm3 (0.00-0.00); METAMYELOCYTE PERCENT MAN 2 % (0-0); MONOCYTES ABSOLUTE MAN 13.21 K/mm3 (0.16-1.47); MONOCYTES PERCENT MAN 28 % (4-13); MYELOCYTE ABSOLUTE MAN 0.94 K/mm3 (0.00-0.00); MYELOCYTE PERCENT MAN 2 % (0-0); NEUTROPHILS ABSOLUTE MAN 23.59 K/mm3 (1.96-9.15); SEG NEUTROPHILS PERCENT MAN 45 % (41-73)
[2025-04-09 18:14] LABS: Alanine Aminotransfer (ALT/SGP 19.0 U/L (12-78); Albumin, Blood 2.9 g/dL (3.4-5.0); Albumin/Globulin Ratio 0.9 (0.8-1.8); Anion Gap 11.0 mmol/L (3-11); Aspartate Aminotrans (AST/SGOT 25.0 U/L (12-37); Bilirubin, Total 0.5 mg/dL (0.1-1.0); Blood Urea Nitrogen 25.0 mg/dL (8-24); CO2, Blood 27.0 mmol/L (21-32); Calcium, Blood 8.7 mg/dL (8.5-10.1); Chloride, Blood 104.0 mmol/L (98-108); Creatinine, Blood 1.21 mg/dL (0.40-1.00); Globulin, Blood 3.1 g/dL (2.2-4.0); Glucose, Blood 96.0 mg/dL (70-99); Potassium, Blood 4.1 mmol/L (3.5-5.5); Sodium, Blood 138.0 mmol/L (136-145); Total Protein, Blood 6.0 g/dL (6.4-8.2)
[2025-04-09] MEDS ORDERED: Doxycycline Hyclate 100 MG in Dextrose 5% 250 ML IV ONE (22:05)
[2025-04-09] MEDS ORDERED: CefTRIAXone Sodium 1,000 MG in NS 100 ML IV ONE (22:05)
[2025-04-10] MEDS ORDERED: JARDIANCE10 MG PO (02:04)
[2025-04-10 02:31] VITALS: BP 139/65
--- NOTE | 2025-04-10 04:02 | NUR ---
0150 RECEIVED REPORT FROM ELIZABETH IN ER AND ASSUMED CARE FOR ADMIT TO ROOM 361.
--- NOTE | 2025-04-10 04:03 | NUR ---
ADMIT NOTE PT BROUGHT TO ROOM 361 AND ASSISTED WITH TRANSFER TO HER BED. PT FULL ASSESSMENT COMPLETE AND PT MADE COMFORTABLE AND ORIENTED TO ROOM. DAUGHTER MYESHA ARRIVED WITH HER AND CONFIRMED INFORMATION. PT IS A&OX4 AND ABLE TO MAKE NEEDS KNOWN. SHE IS [place]. RIGHT FOREARM IV WAS LEAKING AND HAD TO BE PULLED. DIRECT SALES CONSULTANT WAS ABLE TO GET A NEW IV IN RIGHT AC. PT ON 2 LPM O2 VIA NC AND SATTING IN MID TO HIGH 90'S. SHE IS HOOKED UP TO CONTINOUS PULSE OX. SHE IS RESTING COMFORTABLY IN HER BED AT LOWEST POSITION WITH CALL LIGHT WITHIN REACH.
[2025-04-10] MEDS ORDERED: Ondansetron HCl 2 MG / ML 2ML Vial IV PRN (04:05)
[2025-04-10] MEDS ORDERED: Ipratropium/Albuterol SulF 2.5-0.5MG/3 ML Amp INH PRN ×2 (04:10→06:25)
[2025-04-10 05:43] LABS: Hematocrit 29.6 % (33.0-51.0); Hemoglobin 8.3 g/dL (11.5-16.0); Mean Corpuscular HGB Conc 28.0 g/dL (31.5-36.5); Mean Corpuscular Volume 81 fL (80-100); NRBC ABSOLUTE 0.08 K/mm3 (0.00-0.02); NRBC Auto 0.2 /100 WBC (0.0-0.2); Platelet Count 106 K/mm3 (150-400); RDW Coefficient Variation 18.4 % (11.7-14.2); RDW Standard Deviation 51.0 fL (35.1-46.3)
--- NOTE | 2025-04-10 05:44 | NUR ---
SHIFT SUMMARY A&OX4. ABLE TO MAKE ALL NEEDS KNOWN. PT ARRIVED FROM ER TO HER ROOM AND WAS ORIENTED WITH DAUGHTER MYESHA. IV REPLACED FROM RIGHT FOREARM TO RIGHT AC. PT TOLERATED WELL. PT REPORTED PAIN AND MEDICATED PER EMAR. TELE PLACED ON PT PER ORDERS WELL CONTINOUS PULSE OX. PT CURRENTLY ON O2 VIA NC AT 2 LPM AND O2 SATS ARE REMAINING IN MID TO HIGH 90'S. PT DOES HAVE A PRODUCTIVE, MOIST COUGH. PT CURRENTLY RESTING IN BED AT LOWEST POSITION WITH HOB ELEVATED, RAILS X2 AND CALL LIGHT WITHIN REACH.
[2025-04-10 06:05] LABS: BAND PERCENT MAN 4 % (0-8); BASOPHILS ABSOLUTE MAN 0.00 K/mm3 (0.00-0.23); BASOPHILS PERCENT MAN 0 % (0-2); EOSINOPHILS ABSOLUTE MAN 0.00 K/mm3 (0.00-0.68); EOSINOPHILS PERCENT MAN 0 % (0-6); LYMPHOCYTES ABSOLUTE MAN 2.74 K/mm3 (0.84-5.20); LYMPHOCYTES PERCENT MAN 7 % (21-46); METAMYELOCYTE ABSOLUTE MAN 0.78 K/mm3 (0.00-0.00); METAMYELOCYTE PERCENT MAN 2 % (0-0); MONOCYTES ABSOLUTE MAN 15.66 K/mm3 (0.16-1.47); MONOCYTES PERCENT MAN 40 % (4-13); MYELOCYTE ABSOLUTE MAN 0.39 K/mm3 (0.00-0.00); MYELOCYTE PERCENT MAN 1 % (0-0); NEUTROPHILS ABSOLUTE MAN 19.57 K/mm3 (1.96-9.15); SEG NEUTROPHILS PERCENT MAN 46 % (41-73)
[2025-04-10] MEDS ORDERED: NS 250 ML IV PRN (06:15)
[2025-04-10] MEDS ORDERED: Docusate Sodium/Senna 1 Tab PO PRN (06:15)
[2025-04-10] MEDS ORDERED: OxyCODONE 5 mg/Acetamin 325 mg TABLET PO PRN (06:20)
[2025-04-10] MEDS ORDERED: Polyethylene Glycol 3350 17 gm PO PRN (06:25)
[2025-04-10] MEDS ORDERED: Remdesivir (EUA) 200 MG in NS 250 ML IV ONE (06:30)
[2025-04-10 07:06] LABS: Alanine Aminotransfer (ALT/SGP 17.0 U/L (12-78); Albumin, Blood 2.6 g/dL (3.4-5.0); Albumin/Globulin Ratio 0.9 (0.8-1.8); Anion Gap 8.0 mmol/L (3-11); Aspartate Aminotrans (AST/SGOT 20.0 U/L (12-37); Bilirubin, Total 0.4 mg/dL (0.1-1.0); Blood Urea Nitrogen 23.0 mg/dL (8-24); CO2, Blood 30.0 mmol/L (21-32); Calcium, Blood 8.1 mg/dL (8.5-10.1); Chloride, Blood 102.0 mmol/L (98-108); Creatinine, Blood 1.07 mg/dL (0.40-1.00); Globulin, Blood 2.8 g/dL (2.2-4.0); Glucose, Blood 89.0 mg/dL (70-99); Magnesium, Blood 1.8 mg/dL (1.6-2.4); Potassium, Blood 3.4 mmol/L (3.5-5.5); Sodium, Blood 137.0 mmol/L (136-145); Total Protein, Blood 5.4 g/dL (6.4-8.2)
[2025-04-10 08:15] VITALS: BP 122/62
[2025-04-10] MEDS ORDERED: Calcium/Vit D 600 mg-400 Unit Tab PO SCH (09:00)
[2025-04-10] MEDS ORDERED: Doxycycline Hyclate 100 MG in Dextrose 5% 250 ML IV SCH (09:00)
[2025-04-10] MEDS ORDERED: Potassium Chloride 10 Meq Tablet SA PO SCH (09:00)
[2025-04-10] MEDS ORDERED: Lactobacil 2-S.Thermo-Bifido 1 1 Cap PO SCH (09:00)
[2025-04-10] MEDS ORDERED: Cholecalciferol 1000 Unit Tablet (=25MCG) PO SCH (09:00)
[2025-04-10 11:02] VITALS: BP 124/62
--- NOTE | 2025-04-10 11:02 | NUR ---
POWER GLIDE D/T PT BEING A VERY HARD IV START. OFFERED A POWER GLIDE AN OPTION D/T MULTIPLE ANTIBITICS THERAPY. PT REFUSED. CARE ONGOING.
[2025-04-10 15:10] VITALS: BP 109/63
--- NOTE | 2025-04-10 18:02 | NUR ---
NOTE PT AWAKE AND ALERT. ATTEMPTED TO WEAN FROM 2L TO RA. SAT DROPPED TO 84%. RESUMED 2L N/C. DEEP CONGESTED COUGH. PT UNABLE TO PROVIDE A SPUTUM SAMPLE. PT HAS DECLINED [place] OOB. [facility] CALLED TO CHECK ON PT. CARE ONGOING.
[2025-04-10 20:01] VITALS: BP 121/68
[2025-04-10] MEDS ORDERED: CefTRIAXone Sodium 1,000 MG in NS 100 ML IV SCH (21:00)
[2025-04-10 23:27] VITALS: BP 123/66
[2025-04-11 03:36] VITALS: BP 137/78
[2025-04-11 07:13] VITALS: BP 119/70
[2025-04-11] MEDS ORDERED: Trimethoprim/Sulfamethoxazole DS Tab PO SCH (09:00)
[2025-04-11 11:22] LABS: Hematocrit 31.1 % (33.0-51.0); Hemoglobin 8.6 g/dL (11.5-16.0); Mean Corpuscular HGB Conc 27.7 g/dL (31.5-36.5); Mean Corpuscular Volume 81 fL (80-100); NRBC ABSOLUTE 0.05 K/mm3 (0.00-0.02); NRBC Auto 0.2 /100 WBC (0.0-0.2); Platelet Count 107 K/mm3 (150-400); RDW Coefficient Variation 18.8 % (11.7-14.2); RDW Standard Deviation 51.4 fL (35.1-46.3)
[2025-04-11 11:28] LABS: Anion Gap 6.0 mmol/L (3-11); Blood Urea Nitrogen 27.0 mg/dL (8-24); CO2, Blood 31.0 mmol/L (21-32); Calcium, Blood 8.1 mg/dL (8.5-10.1); Chloride, Blood 102.0 mmol/L (98-108); Creatinine, Blood 0.85 mg/dL (0.40-1.00); Glucose, Blood 151.0 mg/dL (70-99); Potassium, Blood 4.1 mmol/L (3.5-5.5); Sodium, Blood 135.0 mmol/L (136-145)
[2025-04-11 11:42] VITALS: BP 124/69
[2025-04-11] MEDS ORDERED: Remdesivir (EUA) 100 MG in NS 250 ML IV SCH (12:00)
[2025-04-11] MEDS ORDERED: Ipratropium/Albuterol SulF 2.5-0.5MG/3 ML Amp INH SCH (12:25)
[2025-04-11 15:32] VITALS: BP 124/65
--- NOTE | 2025-04-11 18:17 | NUR ---
SHIFT SUMMARY PT IS A&0X3-4 WITH PERIODS OF CONFUSION WHICH FAMILY STATES IS NORMAL. PT IS PLEASANT AND COOPERATIVE WITH CARE. BREATHING TREATMENT DONE TODAY. PT HAS A DEEP CONGESTED COUGH, WAITING FOR A SPUTUM CULTURE FROM PT. PT DID NOT WORK WITH OT OR PHYSICAL THERAPY TODAY. CALL LIGHT WITHIN REACH. PT CALLS APPROPRIATELY.
[2025-04-11 19:50] VITALS: BP 138/84
[2025-04-11 23:29] VITALS: BP 122/66
--- NOTE | 2025-04-12 04:22 | NUR ---
SALES ATTENDANT SUMMARY VSS. ALERT AND ORIENTED, BUT PT SAYS "HARD OF HEARING". TOLERATING MEDS WELL, ANTIBIOTICS ADMINISTERED - SEE MAR FOR DETAILS. CONTINUES ON DROPLET PRECAUTIONS FOR COVID. LUNG SOUNDS DIMINISHED PER AUSCULTATION. ON O2 AT 2L/MIN PER NC. MED TELE - HR IN THE 70'S. PUREWICK IN PLACE FOR VOIDING, PT IS ON BEDREST DUE TO WEAKNESS. RECEIVING RESP TREATMENTS PER RT. HAS BEEN RESTING QUIETLY WITH FEW INTERRUPTIONS. CALL LIGHT IN REACH, RAILS UP X 2 AND BED IN LOW POSITION FOR SAFETY. WILL CONT TO MONITOR.
[2025-04-12 04:55] VITALS: BP 130/63
[2025-04-12 07:58] VITALS: BP 122/65
[2025-04-12 16:30] VITALS: BP 99/62
--- NOTE | 2025-04-12 17:16 | NUR ---
SHIFT SUMMARY PATIENT A/OX4, ABLE TO MAKE NEEDS KNOWN. HARD OF HEARING. 1 PERSON ASSIST. PLEASANT AND COOPERATIVE WITH CARE. COMPLAINING OF BACK AND BUTTOCKS PAIN THIS MORNING, MEDICATED WITH PERCOCET PER SEP. WOUND CARE PROVDIDED PER ORDERS. PATIENT INCONTINENT, PUREWICK IN PLACE. ATTEMPTED TO REMOVE SUPPLEMENTAL OXYGEN MULTIPLE TIMES THROUGHOUT THE SHIFT, PATIENT DESATS TO 86-87%. PATIENT CONTINUES WITH 1 LPM VIA NASAL CANNULA. DAUGHTER AT BEDSIDE THIS AFTERNON AND UPDATED ON PATIENT STATUS. UNABLE TO COLLECT SPUTUM SAMPLE THIS SHIFT, PATIENT PRODUCING MINIMAL SPUTUM. IV TO RIGHT AC REMOVED DUE TO INFILTRATION AND BRUISING. PATIENT STATES NO BOWEL MOVEMENT X2 DAYS, BUT REFUSING BOWEL MEDS AT THIS TIME. NO OTHER CONCERNS AT THIS TIME, WILL CONTINUE TO MONITOR.
[2025-04-12 18:50] VITALS: BP 134/75
--- NOTE | 2025-04-12 19:00 | NUR ---
TELEMETRY CALLED TO NOTIFY ST DEPRESSION VITAL SIGNS OBTAINED, WNL. PATIENT DENIES ANY CHEST PAIN OR PRESSURE, NO CARDIAC SYMPTOMS. PATIENT RESTING COMFORTABLY IN BED EATING DINNER. LEFT MESSAGE WITH DR. COFFEY TO NOTIFY.
[2025-04-12 19:56] VITALS: BP 131/70
[2025-04-12 23:56] VITALS: BP 123/79
--- NOTE | 2025-04-13 04:50 | NUR ---
DOPE MAINTENANCE WORKER SUMMARY VSS. A/O X 3-4. REMAINS ON DROPLET PRECAUTIONS FOR COVID. ON O2 PER NC WITH CONT PULSE OX. TOLERATING MEDS WELL INCLUDING IV ABX - SEE MAR FOR DETAILS. OCCASIONALLY PULLING OFF NC AND SATS FROP, STAFF PLACED NC BACK ON A FEW TIMES, CURRENTLY RESTING QUIETLY. CALL LIGHT IN REACH, RAILS UP X 2 AND BED IN LOW POSITION FOR SAFETY.
[2025-04-13 05:07] VITALS: BP 140/74
[2025-04-13 08:10] VITALS: BP 129/70
--- NOTE | 2025-04-13 09:53 | NUR ---
pt laying in bed awake a/ox3-4, pleasant and cooperative with care, follows commands well, denies pain, stats she feels a little rough, a bit worse than yesterday, but also didn't sleep well, lungs are clear in [place], bs are shallow, a bit dim in bases, resp even and unlabored, does desat when o2 is off, will dip to 86%, francisco while sleeping, no cough noted, hrr, murmur noted, tele in place runnning sr with first degree, bbb, and pacs, rate of 65bpm, trace edema noted to right le, ppp faint, cap refill< 3 sec, vs stable, afebrile, piv to right fa, site is clear and patent, btx4, abd flat soft nontender, voids via purwick at this time, no bm x3 days per pt, skin has sore to coccyx, dressing in place, david eddy, call light in reach.
[2025-04-13 12:46] LABS: Hematocrit 31.7 % (33.0-51.0); Hemoglobin 9.0 g/dL (11.5-16.0); Mean Corpuscular HGB Conc 28.4 g/dL (31.5-36.5); Mean Corpuscular Volume 81 fL (80-100); Platelet Count 146 K/mm3 (150-400); RDW Coefficient Variation 19.8 % (11.7-14.2); RDW Standard Deviation 52.3 fL (35.1-46.3)
[2025-04-13 12:52] LABS: NRBC ABSOLUTE 0.04 K/mm3 (0.00-0.02); NRBC Auto 0.1 /100 WBC (0.0-0.2)
[2025-04-13 15:48] VITALS: BP 115/74
--- NOTE | 2025-04-13 16:32 | NUR ---
SHIFT SUMMARY THIS RN ASSUMED CARE OF PATIENT AT APPROX. 1300. PATIENT IN ISOLATION FOR COVID. PATIENT IS ON 2L, ROOM AIR IS BASELINE. ATTEMPTED TO TITRATE PATIENT, BUT PATIENT WOULD DESAT TO 86%. PATIENT UP TO BSC WITH 1P ASSIST. PATIENT HAD SMALL BM TODAY. PATIENT MEDICATED FOR PAIN X1. PATIENT DENIES NAUSEA AND SHORTNESS OF BREATH AT REST. PATIENT REPORTS SOME SHORTNESS OF BREATH WITH ACTIVITY. PATIENT HAS VISITORS THIS AFTERNOON. PATIENT DID NOT EAT MUCH OF HER MEALS TODAY. PATIENT IS A&OX3 DURING THIS RN'S ASSESSMENT. PATIENT IS [place]. PATIENT IS ON TELE, SR WITH 1ST DEGREE AND BBB IN 60'S. PATIENT IS PLEASANT AND COOPERATIVE WITH CARE.
[2025-04-13 19:25] VITALS: BP 121/74
[2025-04-14] VITALS (7 sets, daily range): BP systolic 119–131; BP diastolic 66–81
[2025-04-14 04:58] LABS: Hematocrit 32.6 % (33.0-51.0); Hemoglobin 9.3 g/dL (11.5-16.0); Mean Corpuscular HGB Conc 28.5 g/dL (31.5-36.5); Mean Corpuscular Volume 80 fL (80-100); NRBC ABSOLUTE 0.03 K/mm3 (0.00-0.02); NRBC Auto 0.1 /100 WBC (0.0-0.2); Platelet Count 155 K/mm3 (150-400); RDW Coefficient Variation 19.9 % (11.7-14.2); RDW Standard Deviation 52.9 fL (35.1-46.3)
--- NOTE | 2025-04-14 05:00 | NUR ---
SHIFT SUMMARY NO ACUTE CHANGES THIS SHIFT, TITRATED O2 TO 1LTR, MAINTAINING SATS 92-96%, BUT HAS PULLED O2 OFF SEVERAL TIMES DURING THE NIGHT AND DESATS TO LOW 80'S WHEN IT IS REMOVED. MEDICATED AT BEDTIME FOR C/O 6/10 BACK PAIN, APPEARS TO BE RESTING COMFORTABLY AT THIS TIME, CALL LIGHT IN REACH, WILL CONT TO MONITOR.
[2025-04-14 05:12] LABS: Anion Gap 6.0 mmol/L (3-11); Blood Urea Nitrogen 29.0 mg/dL (8-24); CO2, Blood 33.0 mmol/L (21-32); Calcium, Blood 8.3 mg/dL (8.5-10.1); Chloride, Blood 100.0 mmol/L (98-108); Creatinine, Blood 0.71 mg/dL (0.40-1.00); Glucose, Blood 77.0 mg/dL (70-99); Potassium, Blood 3.7 mmol/L (3.5-5.5); Sodium, Blood 135.0 mmol/L (136-145)
--- NOTE | 2025-04-14 09:00 | NUR ---
pt laying in bed awake a/ox4, pleasant and cooperative with care, follows commands well, lungs are dim t/o, with shallow resp, currently on 1 liter of 02 via n/c, resp evne and unlabored at rest, does take cannula off periodically, sats drop to 85%, no cough noted or reported, hrr, tele in place running sr with first degree, bbb, and pac's in the 60's, 2+ edema noted to right foot, left none, cap refill<3 sec, vs stable, afebrile, piv to rfa site is clear and patent, btx4, abd flat soft nontender, voids without diff, uses purwick at hs, skin has sore to coccyx, with mepilex in place, maew, general weakness, can get to chair with assist, david, call light in reach.
[2025-04-14] MEDS ORDERED: VISBIOME 112.51 EACH PO (11:21)
[2025-04-14] MEDS ORDERED: ALBU2.5V5 INH (11:21)
[2025-04-14] MEDS ORDERED: DOXY100 PO (11:22)
[2025-04-14] MEDS ORDERED: AIRDUO DIGIHAL1 EAC2 INH (11:22)
[2025-04-14] MEDS ORDERED: SPIRIVA RESPIMAT4 G3 INH (11:23)
[2025-04-14] MEDS ORDERED: CefTRIAXone Sodium 1,000 MG in NS 100 ML IV ONE (13:10)
--- NOTE | 2025-04-14 18:38 | NUR ---
pt sat up in chair for a few hrs this afternoon, stated she can't stand while daughter was in visiting, attempted to assist her to stand but wouldn't get past her legs remaining bent, health physicist got her to bed after family left, she was able to stand to transfer with one person, plan is to discharge back to [facility] tomorrow, brick picker time is scheduled for 11:00. pt and family have been informed. no acute changes this shift, call light in reach.
--- NOTE | 2025-04-15 05:19 | NUR ---
SHIFT SUMMARY NO ACUTE CHANGES THIS SHIFT, VSS, MEDICATED AT HS W/PEROCET FOR C/O CHRONIC BACK PAIN, SLEPT T/O THE NIGHT AND AT THIS TIME, CALL LIGHT IN REACH, WILL CONT TO MONITOR UNTIL REPORT GIVEN TO ONCOMING NURSE.
[2025-04-15 07:27] VITALS: BP 133/76
--- NOTE | 2025-04-15 09:00 | NUR ---
pt up to chair for breakfast, states she slept well, but feels a little punky, denies pain, lungs are clear but dim t/o, resp even and unlabored, no cough noted, hrr, ppp+2, cap refill<3sec, vs stable, afebrilel, btx4, abd flat soft nontender, voids via purwick and briefs, skin frail, mepilex to coccyx, scattered bruising, maew, general weakness, was able to stand and transfer to chair with one person, david, call light in reach.
--- NOTE | 2025-04-15 11:25 | NUR ---
transport here for pt, taking her via gurney, family here, will take her belongings. went over discharge with daughter.
== END 2025-04-15 11:28 | disposition home health service (06) | DRG 871 ==
LOC: ER 16:41 → MEDS 16:42 → ER 04-10 00:37 → MEDS 04-10 01:56
PROVIDERS: Internal Medicine; Physician Assistant; ADMIT Student in an Organized Health Care Education/Training Program
PROC: 3E03329 Introduction of Other Anti-infective into Peripheral Vein, Percutaneous Approach (ICD-10-PCS; principal; 2025-04-09)
PROC: 3E0DX3Z Introduction of Anti-inflammatory into Mouth and Pharynx, External Approach (ICD-10-PCS; 2025-04-10)
PROC: XW033E5 Introduction of Remdesivir Anti-infective into Peripheral Vein, Percutaneous Approach, New Technology Group 5 (ICD-10-PCS; 2025-04-11)
DX: A41.89 Other specified sepsis (principal); J12.82 Pneumonia due to coronavirus disease 2019; J96.01 Acute respiratory failure with hypoxia; U07.1 COVID-19; C90.00 Multiple myeloma not having achieved remission; E44.0 Moderate protein-calorie malnutrition; Z68.1 Body mass index [BMI] 19.9 or less, adult; I50.32 Chronic diastolic (congestive) heart failure; J44.0 Chronic obstructive pulmonary disease with (acute) lower respiratory infection; I11.0 Hypertensive heart disease with heart failure; D69.6 Thrombocytopenia, unspecified; R54 Age-related physical debility; L97.529 Non-pressure chronic ulcer of other part of left foot with unspecified severity; L89.152 Pressure ulcer of sacral region, stage 2; I35.0 Nonrheumatic aortic (valve) stenosis; M10.9 Gout, unspecified; Z90.49 Acquired absence of other specified parts of digestive tract; Z90.11 Acquired absence of right breast and nipple; Z90.710 Acquired absence of both cervix and uterus; Z90.722 Acquired absence of ovaries, bilateral; Z90.89 Acquired absence of other organs; Z87.19 Personal history of other diseases of the digestive system; Z86.73 Personal history of transient ischemic attack (TIA), and cerebral infarction without residual deficits; Z87.891 Personal history of nicotine dependence; Z99.81 Dependence on supplemental oxygen; Z85.3 Personal history of malignant neoplasm of breast; Z86.711 Personal history of pulmonary embolism; Z79.891 Long term (current) use of opiate analgesic; Z79.01 Long term (current) use of anticoagulants; Z79.899 Other long term (current) drug therapy; Z79.82 Long term (current) use of aspirin
CPT/HCPCS: 36415; 71046; 80048; 80053; 83605; 83735; 83880; 84146; 85025; 85027; 85379; 87040; 94640; 94760; 94761; 94762; 96365; 96366; 96368; 97110; 97162; 97530; 99285-25; A6590; A9270; G0378; J0248; J0696; J7050; J7060

== ENCOUNTER 2025-04-16 16:08 | Emergency (ER) | payer OTHER ==
[~2025-04-16] VITALS: Ht 152.4 cm; Wt 45.4 kg
[~2025-04-16 16:08] MED LIST changes: +AIRDUO DIGIHAL1 EAC2 INH; +ALBU2.5V5 INH; +DOXY100 PO; +SPIRIVA RESPIMAT4 G3 INH
[2025-04-16 17:22] LABS: Hematocrit 39.2 % (33.0-51.0); Hemoglobin 11.2 g/dL (11.5-16.0); Mean Corpuscular HGB Conc 28.6 g/dL (31.5-36.5); Mean Corpuscular Volume 80 fL (80-100); Platelet Count 232 K/mm3 (150-400); RDW Coefficient Variation 21.0 % (11.7-14.2); RDW Standard Deviation 56.8 fL (35.1-46.3)
[2025-04-16 17:28] LABS: NRBC ABSOLUTE 0.03 K/mm3 (0.00-0.02); NRBC Auto 0.1 /100 WBC (0.0-0.2)
[2025-04-16 17:50] LABS: Alanine Aminotransfer (ALT/SGP 19.0 U/L (12-78); Albumin, Blood 3.0 g/dL (3.4-5.0); Albumin/Globulin Ratio 1.0 (0.8-1.8); Anion Gap 7.0 mmol/L (3-11); Aspartate Aminotrans (AST/SGOT 31.0 U/L (12-37); Bilirubin, Total 0.6 mg/dL (0.1-1.0); Blood Urea Nitrogen 34.0 mg/dL (8-24); CO2, Blood 34.0 mmol/L (21-32); Calcium, Blood 10.4 mg/dL (8.5-10.1); Chloride, Blood 102.0 mmol/L (98-108); Creatinine, Blood 0.79 mg/dL (0.40-1.00); Globulin, Blood 2.9 g/dL (2.2-4.0); Glucose, Blood 122.0 mg/dL (70-99); Potassium, Blood 4.3 mmol/L (3.5-5.5); Sodium, Blood 139.0 mmol/L (136-145); Total Protein, Blood 5.9 g/dL (6.4-8.2)
[2025-04-16 18:18] LABS: BAND PERCENT MAN 4 % (0-8); BASOPHILS ABSOLUTE MAN 0.00 K/mm3 (0.00-0.23); BASOPHILS PERCENT MAN 0 % (0-2); EOSINOPHILS ABSOLUTE MAN 0.00 K/mm3 (0.00-0.68); EOSINOPHILS PERCENT MAN 0 % (0-6); LYMPHOCYTES ABSOLUTE MAN 2.83 K/mm3 (0.84-5.20); LYMPHOCYTES PERCENT MAN 6 % (21-46); METAMYELOCYTE ABSOLUTE MAN 0.47 K/mm3 (0.00-0.00); METAMYELOCYTE PERCENT MAN 1 % (0-0); MONOCYTES ABSOLUTE MAN 20.82 K/mm3 (0.16-1.47); MONOCYTES PERCENT MAN 44 % (4-13); MYELOCYTE ABSOLUTE MAN 0.47 K/mm3 (0.00-0.00); MYELOCYTE PERCENT MAN 1 % (0-0); NEUTROPHILS ABSOLUTE MAN 22.71 K/mm3 (1.96-9.15); SEG NEUTROPHILS PERCENT MAN 44 % (41-73)
[2025-04-16 19:15] VITALS: BP 125/74
== END 2025-04-16 19:30 | disposition home or self-care (01) ==
LOC: ER 16:08
PROVIDERS: Student in an Organized Health Care Education/Training Program
DX: J20.9 Acute bronchitis, unspecified (principal); Z87.891 Personal history of nicotine dependence; I11.0 Hypertensive heart disease with heart failure; I50.9 Heart failure, unspecified; Z79.82 Long term (current) use of aspirin; Z79.899 Other long term (current) drug therapy; Z79.51 Long term (current) use of inhaled steroids
CPT/HCPCS: 71046; 80053; 85025; 93005; 93010; 99284-25